=== PATIENT | female | born 1950 | race Caucasian/White ===

== ENCOUNTER 2016-03-01 15:35 | Emergency (ER) ==
--- NOTE | 2016-03-01 20:07 | PROVIDER DOCUMENTATION ---
HPI-Respiratory General - General Source: patient - History of Present Illness-Resp Quality of Pain: reports: aching Severity in ED: reports: mild Onset/Duration: reports: 4 days ago Timing: reports: still present Exposure: reports: unknown cause Cough Quality/Degree: reports: moderate Episode Frequency: no prior episodes Current Respiratory Medication Therapy: Initiated see nurses note Modifying Factors: worse with: coughing, other (palpation) Associated Symptoms: reports: cough, other (rib pain) Similar Symptoms Previously?: No Recently seen or treated by another doctor?: No <Shae Thomas - Last Filed: 03/01/16 20:07> <Derek Curran - Last Filed: 03/01/16 22:09> - General Chief Complaint: Wheezing Stated Complaint: PNEUMONIA Time Seen by Provider: 03/01/16 19:54 Allergies/Adverse Reactions: Patient Allergies Allergy/AdvReac Type Severity Reaction Status Date / Time Penicillins Allergy Severe SWELLING Verified 03/01/16 20:19 oxycodone HCl * Allergy Mild Unknown Verified 03/01/16 20:19 [From Percocet] propoxyphene napsylate * Allergy Mild Unknown Verified 03/01/16 20:19 [From Darvocet-N 100] Home Medications: Lorazepam [Ativan] 1 mg PO Q6H PRN PRN 01/11/12 Sertraline HCl [Zoloft] 100 mg PO QAM 01/11/12 Multivitamins/Minerals [Centrum Silver] 1 each PO QAM 09/03/12 Solifenacin Succinate [Vesicare] 10 mg PO QAM 09/03/12 Hydrochlorothiazide 25 mg PO QAM 11/09/12 Calcium Carbonate/Vitamin D3 [Calcium 600-Vit D3 400 Tablet] 1 tab PO QHS Mometasone/Formoterol INH [Dulera 100 Mcg/5 Mcg Inhaler] 2 puff INH RTBID Levothyroxine [Synthroid] 75 mcg PO QAM 09/15/14 Tiotropium [place] Inhaler [Spiriva] 1 puff INH RTDAILY 09/15/14 Clopidogrel [Plavix] 75 mg PO QAM 10/05/14 ATORVAstatin [Lipitor] 80 mg PO QHS 03/01/16 Dipyridamole/Aspirin S.a. [Aggrenox] 1 each PO QAM 03/01/16 Furosemide 20 mg PO BID 03/01/16 Potassium Chloride 20 meq PO BID 03/01/16 Potassium Citrate E.r. [Urocit-K] 5 meq PO BID 03/01/16 - History of Present Illness-Resp Nature of Presenting Problem: 65 year old F presents to the ED with a cc of left lower rib pain. PT states that she had a CT on Monday for this but has not received her results back. Pt has a hx of lung cancer. PT states that she has been battling pneumonia for "months" now and she states that she just finished a round of Doxycycline that her PCP placed her on. (Shae Thomas) Review of Systems - Adult - REVIEW OF SYSTEMS - ADULT Constitutional: denies: chills, fever Eyes: reports: no symptoms reported Ears, Nose, Mouth & Throat: denies: ear pain, throat pain Cardiovascular: reports: chest pain (rib pain). denies: palpitations Respiratory: reports: cough. denies: shortness of breath Gastrointestinal: denies: abdominal pain, nausea, vomiting Genitourinary: reports: no symptoms reported Musculoskeletal: reports: no symptoms reported Integumentary: reports: no symptoms reported Neurological: reports: no symptoms reported Psychiatric: reports: no symptoms reported Endocrine: reports: no symptoms reported Hematologic/Lymphatic: reports: no symptoms reported Allergic/Immunologic: reports: no symptoms reported All Other Systems: Reviewed and Negative <Shae Thomas - Last Filed: 03/01/16 20:07> Past History - Adult - PAST MEDICAL HISTORY-ADULT Review of Records: reports: Nursing Assessment Review, Medications Reviewed 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) Cardiovascular: reports: HTN, hyperlipidemia Respiratory: reports: cancer (lung), pneumonia Gastrointestinal: reports: GERD Neurological: reports: CVA, TIA Psychiatric: reports: anxiety - PRIOR SURGERIES/PROCEDURES Surgical/Procedure History: reports: tonsillectomy - PRIOR HOSPITALIZATIONS Prior Hospitalizations: reports: none - IMMUNIZATION STATUS Childhood Immunizations: See Nurse Assessment Flu Vaccine: See Nurse Assessment - FAMILY HISTORY Family History: reviewed, not pertinent - SOCIAL HISTORY Smoking: quit greater than 1 year Substance Use: none/never Alcohol Use Frequency: occasionally <Shae Thomas - Last Filed: 03/01/16 20:07> Physical Exam-General - PHYSICAL EXAM-ADULT Initial Vital Signs Reviewed: Yes - CONSTITUTIONAL General Appearance: appears well, alert, no apparent distress - HEAD, EARS, NOSE, MOUTH & THROAT HENMT: normocephalic/atraumatic, moist mucous membranes, normal ENT inspection - RESPIRATORY Respiratory: chest non-tender, normal breath sounds, rhonchi (moderate bilaterally), wheezing (moderate bilaterally) - CARDIOVASCULAR Cardiovascular: normal peripheral pulses, regular rate, rhythm, no edema - GASTROINTESTINAL (ABDOMEN) Abdominal Exam: non tender, soft - SKIN Integumentary: normal color, normal turgor, warm/dry - PSYCHIATRIC Psych/Mental Status: normal mood/affect, normal thought content, normal thought process, oriented x 3 <Shae Thomas - Last Filed: 03/01/16 20:07> Progress <Shae Thomas - Last Filed: 03/01/16 20:07> - XRAY 1 XRAY Study: Chest XRAY Interpretation: LARISA Katz) <Derek Curran - Last Filed: 03/01/16 22:09> - PLAN OF CARE/RESULTS Progress/Plan/Lab Results: Discussed patient with Dr. Gonzalez and he agrees with plan. Discussed results and plan of care with patient. Patient agrees with plan and verbalizes understanding. Vital Signs Temp Pulse Resp BP Pulse Ox 03/01/16 21:24 98.1 F 86 20 138/73 94 L 03/01/16 20:36 88 18 03/01/16 16:26 98.6 F 87 20 144/69 98 Penicillins Allergy (Severe, Verified 03/01/16 20:19) SWELLING oxycodone HCl * [From Percocet] Allergy (Mild, Verified 03/01/16 20:19) Unknown makes pt cry propoxyphene napsylate * [From Darvocet-N 100] Allergy (Mild, Verified 03/01/16 20:19) Unknown makes pt crying Lorazepam [Ativan] 1 mg PO Q6H PRN PRN 01/11/12 Sertraline HCl [Zoloft] 100 mg PO QAM 01/11/12 Multivitamins/Minerals [Centrum Silver] 1 each PO QAM 09/03/12 Solifenacin Succinate [Vesicare] 10 mg PO QAM 09/03/12 Hydrochlorothiazide 25 mg PO QAM 11/09/12 Calcium Carbonate/Vitamin D3 [Calcium 600-Vit D3 400 Tablet] 1 tab PO QHS Mometasone/Formoterol INH [Dulera 100 Mcg/5 Mcg Inhaler] 2 puff INH RTBID Levothyroxine [Synthroid] 75 mcg PO QAM 09/15/14 Tiotropium [place] Inhaler [Spiriva] 1 puff INH RTDAILY 09/15/14 Benzonatate [Tessalon] 100 - 200 mg PO TID PRN PRN #30 capsule 09/18/14 Meclizine [Antivert] 25 mg PO Q8H PRN PRN #0 tablet 09/18/14 Clopidogrel [Plavix] 75 mg PO QAM 10/05/14 Doxycycline [Vibramycin] 100 mg PO BID #20 tablet 10/30/14 Hydrocodone/Acetaminophen [[place] 7.5-325 Tablet] 1 each PO Q4-6H PRN PRN #20 tablet 01/12/16 Ondansetron [Zofran Odt] 8 mg PO Q8H PRN #20 tab.rapdis 01/12/16 ATORVAstatin [Lipitor] 80 mg PO QHS 03/01/16 Dipyridamole/Aspirin S.a. [Aggrenox] 1 each PO QAM 03/01/16 Furosemide 20 mg PO BID 03/01/16 Potassium Chloride 20 meq PO BID 03/01/16 Potassium Citrate E.r. [Urocit-K] 5 meq PO BID 03/01/16 Laboratory 03/01/16 03/01/16 20:38 20:38 WBC 17.09 H RBC 4.13 L Hgb 12.0 Hct 36.2 L MCV 87.7 MCH 29.1 MCHC 33.1 RDW Std Deviation 17.0 H Plt Count 280 MPV 10.3 Immature Gran % (Auto) 0.5 Neut % (Auto) 81.8 H Lymph % (Auto) 11.0 L Pershing % (Auto) 5.7 Eos % (Auto) 0.8 Baso % (Auto) 0.2 Immature Gran # (Auto) 0.09 H Neut # (Auto) 13.97 H Lymph # (Auto) 1.88 Pershing # (Auto) 0.98 H Eos # (Auto) 0.14 Baso # (Auto) 0.03 Sodium 138 Potassium 3.8 Chloride 96 L Carbon Dioxide 25 Anion Gap 17 BUN 14 Creatinine 1.0 H Estimated GFR/1.73 m2 55 BUN/Creatinine Ratio 14 Glucose 99 Calculated Osmolality 276 Calcium 10.0 Total Bilirubin 0.38 AST 25 ALT 21 Alkaline Phosphatase 85 Total Protein 7.4 Albumin 3.9 Globulin 3.5 Albumin/Globulin Ratio 1.1 Orders Category Date Time Status Saline Loc NOW Care 03/01/16 20:08 Completed CHEST-2 VIEWS [RAD] Stat Exams 03/01/16 16:39 Taken CBC WITH ELECTRONIC DIFF [HEME] Stat Lab 03/01/16 20:38 Completed COMPREHENSIVE METABOLIC PANEL [CHEM] Stat Lab 03/01/16 20:38 Completed Albuterol 2.5MG/Ipratrop 0.5MG [Duoneb (A & A)] Med 03/01/16 20:08 Discontinued 6 ml INH NOW ONE Methylprednisolone Sod Succ [Solu-Medrol] Med 03/01/16 20:08 Discontinued 125 mg IV NOW ONE Aerosol Treatments Routine Oth 03/01/16 20:08 Completed Aerosol Treatments Stat Oth 03/01/16 20:08 Completed Laboratory Tests 03/01/16 03/01/16 20:38 20:38 WBC 17.09 H RBC 4.13 L Hgb 12.0 Hct 36.2 L MCV 87.7 MCH 29.1 MCHC 33.1 RDW Std Deviation 17.0 H Plt Count 280 MPV 10.3 Immature Gran % (Auto) 0.5 Neut % (Auto) 81.8 H Lymph % (Auto) 11.0 L Pershing % (Auto) 5.7 Eos % (Auto) 0.8 Baso % (Auto) 0.2 Immature Gran # (Auto) 0.09 H Neut # (Auto) 13.97 H Lymph # (Auto) 1.88 Pershing # (Auto) 0.98 H Eos # (Auto) 0.14 Baso # (Auto) 0.03 Sodium 138 Potassium 3.8 Chloride 96 L Carbon Dioxide 25 Anion Gap 17 BUN 14 Creatinine 1.0 H Estimated GFR/1.73 m2 55 BUN/Creatinine Ratio 14 Glucose 99 Calculated Osmolality 276 Calcium 10.0 Total Bilirubin 0.38 AST 25 ALT 21 Alkaline Phosphatase 85 Total Protein 7.4 Albumin 3.9 Globulin 3.5 Albumin/Globulin Ratio 1.1 (Derek Curran) Departure <Shae Thomas - Last Filed: 03/01/16 20:07> - Departure Time of Disposition Order: 21:59 Certified Medical Emergency: Emergent <Derek Curran - Last Filed: 03/01/16 22:09> - Departure DIAGNOSIS: Bronchitis COPD (chronic obstructive pulmonary disease) Qualifiers: COPD type: chronic bronchitis Chronic bronchitis type: unspecified Qualified Code(s): J42 - Unspecified chronic bronchitis Disposition: HOME 01 Condition: Stable Additional Instructions: Follow up with primary care physician Take medications as directed Return to ED for any concerns or worsening of symptoms ED Follow Up Instructions: You have been treated by a care provider in the Emergency Department. These instructions are being provided to you so you can have an understanding of how to care for yourself upon discharge. Upon discharge from the Emergency Department, you are responsible for making arrangements for follow-up care by a physician of your choice. Take all prescribed medications as directed. Return to the Emergency Department immediately for any new or worsening symptoms. You may call the Physician Referral phone number at [phone] to obtain a list of Physicians who are taking new patients. Prescriptions: Phenylephrine HCl/Cod/Prometh [Phenergan Vc-Codeine Syrup] 2 tsp PO Q6H PRN PRN #120 syrup PRN Reason: Cough Attestation - Scribe Verification/Attestation Scribe:: Shae Thomas Acting as Scribe for:: Derek Curran Scribe documention review:: This chart was documented by a scribe and accurately reflects the service the provider performed and the decisions made by the provider. <Shae Thomas - Last Filed: 03/01/16 20:07> - Physician/ Mid-level Attestation Patient care was provided by Mid-level provider (CULINARY CHEF/PA):: Yes Mid-level provider:: Derek Curran Mid-level documentation review:: The Mid-level provider documentation, treatment plan and medical decision making was reviewed by the physician who agrees with all treatment and medical decision making by the [facility]. <Derek Curran - Last Filed: 03/01/16 22:09> Physician Attestation - Physician Attestation I, the provider, attest to the following statement:: Derek Curran Physician documentation Attestation:: This documentation recorded by the scribe accurately reflects the service I personally performed and the decisions made by me. <Shae Thomas - Last Filed: 03/01/16 20:07>
[2016-03-01] MEDS ORDERED: DUONEB (A & A) INH ONE (20:08)
[2016-03-01] MEDS ORDERED: SOLU-MEDROL IV ONE (20:08)
[2016-03-01 20:48] LABS: MANUAL DIFF NEEDED? NO
[2016-03-01 20:58] LABS: BASO% 0.2 % (0.0-0.8); EOS# 0.14 X1000 (0.0-0.7); EOS% 0.8 % (0.0-10.0); HEMATOCRIT 36.2 % (37.0-47.0); IMM GRAN# 0.09 X1000 (0.0-0.04); IMM GRAN% 0.5 % (0.0-0.5); LYMPH# 1.88 X1000 (1.2-3.4); MCH 29.1 PG (27-31); MCHC 33.1 g/dL (33-37); MCV 87.7 FL (81-99); MONO# 0.98 X1000 (0.11-0.59); MONO% 5.7 % (1.7-9.3); MPV 10.3 FL (7.4-10.4); NEUT% 81.8 % (42.2-75.2); PLT 280 X1000 (130-400); RBC 4.13 XMIL (4.2-5.4)
[2016-03-01 21:24] LABS: ALBUMIN 3.9 g/dL (3.5-5.0); POTASSIUM 3.8 mmol/L (3.5-5.1); TOTAL BILIRUBIN 0.38 mg/dL (0.20-1.00); TOTAL PROTEIN 7.4 g/dL (6.3-8.3)
[2016-03-01 21:25] VITALS: BP 138/73
--- NOTE | 2016-03-02 08:08 | Diag Imaging Result Document ---
PROCEDURE NAME: CHEST-2 VIEWS - 03/01/2016 TWO VIEWS OF THE CHEST: FINDINGS: There is volume loss on the left. This was also present on 01/12/2016. There has been some clearing of the right upper lobe compared to previous study. Otherwise, there has been no significant change. IMPRESSION: Fibrosis and volume loss on the left. No definite evidence of acute disease.
== END 2016-03-01 22:19 | disposition home or self-care (01) ==
LOC: ED 15:35
DX: J42 Unspecified chronic bronchitis (principal); R07.81 Pleurodynia; I10 Essential (primary) hypertension; E78.5 Hyperlipidemia, unspecified; G51.0 Bell's palsy; Z85.118 Personal history of other malignant neoplasm of bronchus and lung; Z79.899 Other long term (current) drug therapy; Z86.73 Personal history of transient ischemic attack (TIA), and cerebral infarction without residual deficits; R06.2 Wheezing; F41.9 Anxiety disorder, unspecified; Z87.891 Personal history of nicotine dependence; Z79.51 Long term (current) use of inhaled steroids; Z79.02 Long term (current) use of antithrombotics/antiplatelets
CPT/HCPCS: 71020; 80053; 85025; 94640; 96374; J2930

== ENCOUNTER 2016-07-16 18:09 | Inpatient (IN) ==
[2016-07-16] MEDS ORDERED: DUONEB (A & A) INH ONE (19:17)
[2016-07-16 19:54] LABS: MANUAL DIFF NEEDED? NO
[2016-07-16 19:55] LABS: URINE CULTURE NEEDED? NO; URINE MICRO REVIEW NEEDED? NO; URINE SOURCE CLEAN CATCH
[2016-07-16 19:59] LABS: BASO% 0.2 % (0.0-0.8); BILIRUBIN URINE NEGATIVE (NEGATIVE); BLOOD URINE NEGATIVE (NEGATIVE); COLOR YELLOW; EOS# 0.19 X1000 (0.0-0.7); EOS% 1.1 % (0.0-10.0); GLUCOSE URINE NEGATIVE (NEGATIVE); HEMATOCRIT 39.5 % (37.0-47.0); HEMOGLOBIN 13.1 g/dL (12.0-16.0); IMM GRAN# 0.11 X1000 (0.0-0.04); IMM GRAN% 0.7 % (0.0-0.5); LEUKOCYTES URINE NEGATIVE (NEGATIVE); LYMPH# 1.37 X1000 (1.2-3.4); LYMPH% 8.3 % (20.5-51.1); MCH 30.8 PG (27-31); MCHC 33.2 g/dL (33-37); MCV 92.7 FL (81-99); MONO# 1.24 X1000 (0.11-0.59); MONO% 7.5 % (1.7-9.3); MPV 9.5 FL (7.4-10.4); NEUT% 82.2 % (42.2-75.2); NITRITE URINE NEGATIVE (NEGATIVE); PH URINE 6.5; PLT 262 X1000 (130-400); PROTEIN URINE TRACE mg/dL (NEGATIVE); RBC 4.26 XMIL (4.2-5.4); SP GRAVITY URINE 1.023; TURBIDITY URINE CLEAR (CLEAR); UROBILINOGEN URINE NORMAL (NORMAL)
[2016-07-16 20:01] LABS: UR EPITHELIAL CELLS <10 /HPF (<10); URINE BACTERIA NEGATIVE /HPF; URINE RBC <10 /HPF (<10); URINE WBC <10 /HPF (<10)
[2016-07-16 20:08] LABS: INR 0.97; PROTIME 10.2 Seconds (9.2-11.7); PTT 23.5 Seconds (22.0-36.0)
[2016-07-16 20:15] LABS: UR AMPHETAMINES QUAL NONE DETECTED (NONE DETECT); UR BARBITUATES QUAL NONE DETECTED (NONE DETECT); UR BENZODIAZEPIN QUAL NONE DETECTED (NONE DETECT); UR CANNABINOIDS QUAL NONE DETECTED (NONE DETECT); UR COCAINE QUAL NONE DETECTED (NONE DETECT); UR METHADONE QUAL NONE DETECTED (NONE DETECT); UR OPIATES QUAL NONE DETECTED (NONE DETECT); UR OXYCODONE QUAL NONE DETECTED (NONE DETECT); UR PCP QUAL NONE DETECTED (NONE DETECT)
[2016-07-16 20:20] LABS: ALBUMIN 3.8 g/dL (3.5-5.0); MAGNESIUM 2.2 mg/dL (1.5-2.7); POTASSIUM 3.9 mmol/L (3.5-5.1); TOTAL BILIRUBIN 0.33 mg/dL (0.20-1.00); TOTAL PROTEIN 7.1 g/dL (6.3-8.3)
--- NOTE | 2016-07-16 21:13 | ED EKG INTERP ---
This chart was entered by Forest Bhandari Scribe, acting as scribe for Edgar Ge MD. EKG Interpretation - EKG Time of EKG reading by physician:: 19:37 EKG Read and Signed by:: Edgar Ge EKG Interpretation (*Must complete 3 of following elements*): Abnormal ( Possible left atrial enlargement; L axis deviation; LVH with reploarization abnormality; Anterior infarct, age undetermined) Rate: 81 Rhythm: NSR This chart was documented by the indicated scribe, (Forest Bhandari Scribe) and accurately reflects the services I performed and decisions made by me, Edgar Ge MD, as attested by the provider's signature.
--- NOTE | 2016-07-16 21:43 | PROVIDER DOCUMENTATION ---
HPI-General Adult - General Chief Complaint: Shortness of Breath Stated Complaint: COPD Exacerbation Time Seen by Provider: 07/16/16 18:36 Source: patient, family Allergies/Adverse Reactions: Patient Allergies Allergy/AdvReac Type Severity Reaction Status Date / Time Penicillins Allergy Severe SWELLING Verified 03/01/16 20:19 oxycodone HCl * Allergy Mild Unknown Verified 03/01/16 20:19 [From Percocet] propoxyphene napsylate * Allergy Mild Unknown Verified 03/01/16 20:19 [From Darvocet-N 100] Home Medications: Home Medication List Medication Instructions Recorded Confirmed Last Taken Type Lorazepam [Ativan] 1 mg PO Q8H PRN PRN 01/11/12 07/17/16 07/16/16 History Sertraline HCl [Zoloft] 100 mg PO QAM 01/11/12 07/17/16 07/15/16 History Multivitamins/Minerals [Centrum 1 each PO QAM 09/03/12 07/17/16 07/16/16 History Silver] Hydrochlorothiazide 25 mg PO QAM 11/09/12 07/17/16 07/16/16 History Calcium Carbonate/Vitamin D3 1 tab PO QHS 10/19/13 07/17/16 07/15/16 History [Calcium 600-Vit D3 400 Tablet] Mometasone/Formoterol INH [Dulera 2 puff INH RTBID 10/19/13 07/17/16 07/16/16 History 100 Mcg/5 Mcg Inhaler] Levothyroxine [Synthroid] 100 mcg PO QAM 09/15/14 07/17/16 07/16/16 History Tiotropium [place] Inhaler 1 puff INH RTDAILY 09/15/14 07/17/16 07/16/16 History [Spiriva] Benzonatate [Tessalon] 100 - 200 mg PO TID PRN PRN #30 09/18/14 07/17/16 Rx capsule Clopidogrel [Plavix] 75 mg PO QAM 10/05/14 07/17/16 07/16/16 History ATORVAstatin [Lipitor] 80 mg PO QHS 03/01/16 07/17/16 07/15/16 History Dipyridamole/Aspirin S.a. 1 each PO QAM 03/01/16 07/17/16 07/16/16 History [Aggrenox] Furosemide 20 mg PO 2-4XDAY PRN PRN 03/01/16 07/17/16 03/01/16 11:30 History Potassium Chloride 20 meq PO 2-4XDAY PRN PRN 03/01/16 07/17/16 03/01/16 11:30 History Acetaminophen [Tylenol] 500 mg PO Q6H PRN PRN 07/17/16 07/17/16 Unknown History Albuterol Sulfate [Proair Hfa] 8.5 gm IH Q4H PRN 07/17/16 07/17/16 Unknown History Diphenhydramine [Benadryl] 25 mg PO QHS 07/17/16 07/17/16 07/15/16 History Meclizine [Antivert] 25 mg PO Q6H PRN PRN 07/17/16 07/17/16 07/16/16 History Omeprazole 20 mg PO QHS 07/17/16 07/17/16 07/15/16 History Tizanidine HCl [Zanaflex] 4 mg PO Q8H PRN 07/17/16 07/17/16 07/15/16 History Trospium Chloride 20 mg PO BID 07/17/16 07/17/16 07/16/16 History Doxycycline 100 mg PO BID #10 tablet 07/18/16 Unknown Rx Guaifenesin E.r. [Mucinex] 600 mg PO BID #60 tablet 07/18/16 Unknown Rx - History of Present Illness -Gen Adult Nature of Presenting Problems: Pt is a 65 y/o F c chief complaint of episode of weakness, sob, and near syncope while at home today. Pt states that she was laying on the floor c her dog and was unable to get off the ground due to weakness in her R knee. Pt states that she struggled for a few minutes then became acutely short of breath and felt very weak. She laid on the ground and became unresponsive. Per pt's , he was not able to get her to respond for several minutes and he contacted EMS. Pt has a h/o significant of R knee injury, COPD, CVA, small cell carcinoma in remission. On arrival, pt is alert, oriented, and has active wheezing but states her wheezing is similar to her baseline. Review of Systems - Adult - REVIEW OF SYSTEMS - ADULT Constitutional: reports: see HPI, fatique. denies: chills Eyes: reports: no symptoms reported. denies: blurred vision, double vision Ears, Nose, Mouth & Throat: reports: no symptoms reported. denies: ear pain, nose pain, throat pain Cardiovascular: reports: see HPI, syncope. denies: chest pain, orthopnea Respiratory: reports: see HPI, cough, shortness of breath, wheezing Gastrointestinal: reports: no symptoms reported. denies: abdominal pain, nausea , vomiting Genitourinary: reports: no symptoms reported. denies: dysuria, hematuria Musculoskeletal: reports: see HPI, bone pain, joint pain. denies: joint swelling Integumentary: reports: no symptoms reported. denies: itching, rash Neurological: reports: no symptoms reported. denies: numbness, paresthesia Psychiatric: reports: no symptoms reported. denies: anxiety, emotional problems Endocrine: reports: no symptoms reported. denies: cold intolerance, heat intolerance Hematologic/Lymphatic: reports: no symptoms reported. denies: blood clots, low blood count Allergic/Immunologic: reports: no symptoms reported. denies: allergic reactions , eczema All Other Systems: Reviewed and Negative Past History - Adult - PAST MEDICAL HISTORY-ADULT Review of Records: reports: Old Records Reviewed, Nursing Assessment Review, Medications Reviewed, Social history reviewed & non-contributory. 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) Cardiovascular: reports: HTN, hyperlipidemia Respiratory: reports: cancer (lung), pneumonia Gastrointestinal: reports: GERD Obstetrical/Gynecological: reports: denies history Genitourinary: reports: denies history Musculoskeletal: reports: denies history Neurological: reports: CVA, TIA Psychiatric: reports: anxiety Endocrine/Immune: reports: denies history Other Conditions: reports: denies history - PRIOR SURGERIES/PROCEDURES Surgical/Procedure History: reports: tonsillectomy - PRIOR HOSPITALIZATIONS Prior Hospitalizations: reports: none - IMMUNIZATION STATUS Childhood Immunizations: See Nurse Assessment Flu Vaccine: See Nurse Assessment - FAMILY HISTORY Family History: reviewed, not pertinent Physical Exam-General - PHYSICAL EXAM-ADULT Initial Vital Signs Reviewed: Yes - CONSTITUTIONAL General Appearance: appears well, mild distress, obese - EYES Eyes: PERRL/EOMI, pink conjunctivae - HEAD, EARS, NOSE, MOUTH & THROAT HENMT: normocephalic/atraumatic, moist mucous membranes, normal ENT inspection - NECK Neck: normal inspection - RESPIRATORY Respiratory: chest non-tender, wheezing - CARDIOVASCULAR Cardiovascular: normal peripheral pulses, regular rate, rhythm - GASTROINTESTINAL (ABDOMEN) Abdominal Exam: normal bowel sounds, non tender, soft - LYMPHATIC Lymphatic: no adenopathy - MUSCULOSKELETAL Back Exam: normal inspection, no CVA tenderness, no vertebral tenderness Extremity: normal range of motion, normal inspection, tenderness (R knee) - SKIN Integumentary: normal color, normal turgor, warm/dry - NEUROLOGIC Neurologic: grossly normal, no motor/sensory deficits - PSYCHIATRIC Psych/Mental Status: normal mood/affect, normal thought content, normal thought process, oriented x 3 Progress - PLAN OF CARE/RESULTS Progress/Plan/Lab Results: Vital Signs - 8 hr 07/16/16 18:15 07/16/16 20:12 Temperature 97.7 F Pulse Rate 80 77 Respiratory Rate 19 18 Blood Pressure 136/47 O2 Sat by Pulse Oximetry 97 Laboratory Results - last 24 hr 07/16/16 07/16/16 07/16/16 19:44 19:44 19:44 WBC 16.56 H RBC 4.26 Hgb 13.1 Hct 39.5 MCV 92.7 MCH 30.8 MCHC 33.2 RDW Std Deviation 14.9 H Plt Count 262 MPV 9.5 Immature Gran % (Auto) 0.7 H Neut % (Auto) 82.2 H Lymph % (Auto) 8.3 L [place] % (Auto) 7.5 Eos % (Auto) 1.1 Baso % (Auto) 0.2 Immature Gran # (Auto) 0.11 H Neut # (Auto) 13.62 H Lymph # (Auto) 1.37 [place] # (Auto) 1.24 H Eos # (Auto) 0.19 Baso # (Auto) 0.03 PT INR PTT (Actin FS) D-Dimer 0.46 Sodium 137 Potassium 3.9 Chloride 97 L Carbon Dioxide 22 L Anion Gap 18 BUN 24 H Creatinine 1.0 H Estimated GFR/1.73 m2 55 BUN/Creatinine Ratio 24 Glucose 99 Calculated Osmolality 278 Calcium 10.0 Magnesium 2.2 Total Bilirubin 0.33 AST 24 ALT 26 Alkaline Phosphatase 83 Creatine Kinase 88 Troponin T [id number] Pept Total Protein 7.1 Albumin 3.8 Globulin 3.3 Albumin/Globulin Ratio 1.2 Urine Source Urine Color Urine Turbidity Urine pH Ur Specific [place] Urine Protein Ur Glucose (Stick) Ur Ketones (Stick) Urine Blood Urine Nitrite Urine Bilirubin Urobilinogen Dipstick Urine Leukocytes Urine WBC (Auto) Urine RBC (Auto) U Epithel Cells (Auto) Urine Bacteria (Auto) Urine Opiates Screen Ur Oxycodone Screen Ur Methadone, Qual Ur Barbiturates Screen Ur Phencyclidine Scrn Ur Amphetamines Screen U Benzodiazepines Scrn Urine Cocaine Screen U Cannabinoids Screen 07/16/16 07/16/16 07/16/16 19:44 19:44 19:44 WBC RBC Hgb Hct MCV MCH MCHC RDW Std Deviation Plt Count MPV Immature Gran % (Auto) Neut % (Auto) Lymph % (Auto) [place] % (Auto) Eos % (Auto) Baso % (Auto) Immature Gran # (Auto) Neut # (Auto) Lymph # (Auto) [place] # (Auto) Eos # (Auto) Baso # (Auto) PT 10.2 INR 0.97 PTT (Actin FS) 23.5 D-Dimer Sodium Potassium Chloride Carbon Dioxide Anion Gap BUN Creatinine Estimated GFR/1.73 m2 BUN/Creatinine Ratio Glucose Calculated Osmolality Calcium Magnesium Total Bilirubin AST ALT Alkaline Phosphatase Creatine Kinase Troponin T < 0.010 [id number] Pept 1057 H Total Protein Albumin Globulin Albumin/Globulin Ratio Urine Source Urine Color Urine Turbidity Urine pH Ur Specific [place] Urine Protein Ur Glucose (Stick) Ur Ketones (Stick) Urine Blood Urine Nitrite Urine Bilirubin Urobilinogen Dipstick Urine Leukocytes Urine WBC (Auto) Urine RBC (Auto) U Epithel Cells (Auto) Urine Bacteria (Auto) Urine Opiates Screen Ur Oxycodone Screen Ur Methadone, Qual Ur Barbiturates Screen Ur Phencyclidine Scrn Ur Amphetamines Screen U Benzodiazepines Scrn Urine Cocaine Screen U Cannabinoids Screen 07/16/16 07/16/16 19:44 19:44 WBC RBC Hgb Hct MCV MCH MCHC RDW Std Deviation Plt Count MPV Immature Gran % (Auto) Neut % (Auto) Lymph % (Auto) [place] % (Auto) Eos % (Auto) Baso % (Auto) Immature Gran # (Auto) Neut # (Auto) Lymph # (Auto) [place] # (Auto) Eos # (Auto) Baso # (Auto) PT INR PTT (Actin FS) D-Dimer Sodium Potassium Chloride Carbon Dioxide Anion Gap BUN Creatinine Estimated GFR/1.73 m2 BUN/Creatinine Ratio Glucose Calculated Osmolality Calcium Magnesium Total Bilirubin AST ALT Alkaline Phosphatase Creatine Kinase Troponin T Rkc-T-Bwtftkehtpp Pept Total Protein Albumin Globulin Albumin/Globulin Ratio Urine Source CLEAN CATCH Urine Color YELLOW Urine Turbidity CLEAR Urine pH 6.5 Ur Specific [place] 1.023 Urine Protein TRACE A Ur Glucose (Stick) NEGATIVE Ur Ketones (Stick) NEGATIVE Urine Blood NEGATIVE Urine Nitrite NEGATIVE Urine Bilirubin NEGATIVE Urobilinogen Dipstick NORMAL Urine Leukocytes NEGATIVE Urine WBC (Auto) <10 Urine RBC (Auto) <10 U Epithel Cells (Auto) <10 Urine Bacteria (Auto) NEGATIVE Urine Opiates Screen NONE DETECTED Ur Oxycodone Screen NONE DETECTED Ur Methadone, Qual NONE DETECTED Ur Barbiturates Screen NONE DETECTED Ur Phencyclidine Scrn NONE DETECTED Ur Amphetamines Screen NONE DETECTED U Benzodiazepines Scrn NONE DETECTED Urine Cocaine Screen NONE DETECTED U Cannabinoids Screen NONE DETECTED Orders Category Date Time Status Cardiac Monitoring DIRECTED Care 07/16/16 18:36 Active Oxygen Therapy- ED Nursing DIRECTED Care 07/16/16 18:36 Active Saline Loc NOW Care 07/16/16 18:36 Active Regular Diet Diet 07/16/16 19:17 Active ANGIOGRAM/PULMONARY ARTERIES [CT] Stat Exams 07/16/16 19:15 Taken CHEST-2 VIEWS [RAD] Stat Exams 07/16/16 18:36 Taken HEAD W/O CONTRAST [CT] Stat Exams 07/16/16 19:15 Taken KNEE 3 VIEWS RIGHT [RAD] Stat Exams 07/16/16 19:16 Taken CBC WITH ELECTRONIC DIFF [HEME] Stat Lab 07/16/16 19:44 Completed CK PROFILE [SP CHEM] Stat Lab 07/16/16 19:44 Completed COMPREHENSIVE METABOLIC PANEL [CHEM] Stat Lab 07/16/16 19:44 Completed D-DIMER [CHEM] Stat Lab 07/16/16 19:44 Completed MAGNESIUM [CHEM] Stat Lab 07/16/16 19:44 Completed PRO B-NATRIURETIC PEPTIDE Stat Lab 07/16/16 19:44 Completed PROTIME WITH INR [COAG] Stat Lab 07/16/16 19:44 Completed PTT [COAG] Stat Lab 07/16/16 19:44 Completed TROPONIN T Stat Lab 07/16/16 19:44 Completed UA Reflex [URINALYSIS W/POSS RFLX CULT] [URINALYSIS] Lab 07/16/16 19:44 Completed Stat UDS [URINE DRUG SCREEN] Stat Lab 07/16/16 19:44 Completed Albuterol 2.5MG/Ipratrop 0.5MG [Duoneb (A & A)] Med 07/16/16 19:17 Discontinued 6 ml INH NOW ONE Aerosol Treatments Routine Oth 07/16/16 19:17 Completed Aerosol Treatments Stat Oth 07/16/16 19:17 Completed EKG [EKG] Stat Ther 07/16/16 18:36 Ordered Result Diagrams: 07/18/16 06:23 07/18/16 06:23 - XRAY 1 XRAY: Right XRAY Study: Knee Impression: Normal (no acute dz, no fx, no dislocation) - CT/MRI 1 CT Study: Head Impression: Normal (nad) 2 CT Study: Angiogram Impression: Abnormal (improvement in nonspecific patchy interstitial infiltrates in R lung; stable scarring in L lung; no PE, NAD - prelim radiology report) - CONSULTS/PCP/HOSPITALIST Notification #1 *Consult/PCP/Hospitalist*: Dr. Moahmud (Hospitalist) Time Discussed: 22:38 Reason/Comments: Will accept. Departure - Departure Time of Disposition Decision: 22:38 DIAGNOSIS: COPD exacerbation Altered mental status, unspecified Qualifiers: Altered mental status type: unspecified Qualified Code(s): R41.82 - Altered mental status, unspecified TIA (transient ischemic attack) Qualifiers: Transient cerebral ischemia type: unspecified Qualified Code(s): G45.9 - Transient cerebral ischemic attack, unspecified Disposition: ADMITTED INPATIENT 09 Certified Medical Emergency: Emergent Condition: Stable - Critical Care Note This patient required my direct & personal management of CC.: No Attestation - Physician/ YUMIKO Attestation Patient care was provided by Advanced Practice Provider:: Yes Advanced Practice Provider:: Nilesh Quesada Advanced Practice Provider documentation review:: The Mid-level provider documentation, treatment plan and medical decision making was reviewed by the physician who agrees with all treatment and medical decision making by the MLP.
[2016-07-16] MEDS ORDERED: LEVAQUIN 750 MG/D5W 750 MG/150 ML IVPB IV ONE (22:35)
--- NOTE | 2016-07-17 00:44 | HISTORY AND PHYSICAL ---
PRIMARY CARE PHYSICIAN: Dr. Nicole Quintero. CHIEF COMPLAINT: The patient and had some slurred speech and coughing. HISTORY OF PRESENTING ILLNESS: A 65-year-old, obese female, with a history of CVA, COPD, hypertension and small-cell lung cancer, had presented to the emergency department with complaint that she had some slurred speech and some mild confusion earlier in the day. Apparently, she was on the floor grooming her dog, and then she was unable to stand. She admits to having some pain with her shoulder and right knee, and did not know the reason why she could not stand. However, her states that she was having some slurred speech and confused, and subsequently he called the ambulance. The patient was brought to the emergency department and evaluated, and due to her presenting symptoms, and a history of a previous CVA, it was thought that she would need hospitalization for further management. During her initial presentation, she was coughing, and also having a lot of expiratory wheezes and symptoms consistent with COPD exacerbation, and she will be treated during her stay in the hospital. At the time of my examination, she had denied any headache, fever, chills, chest pain, hemoptysis, or weight changes, but complained of some shortness of breath and coughing. PAST MEDICAL HISTORY: CVA, COPD, hypertension, sleep apnea, small cell lung cancer, treated with radiation and chemo. PAST SURGICAL HISTORY: Adenoidectomy and tonsillectomy and lung biopsy. ALLERGIES: Penicillin, oxycodone, propoxyphene. CURRENT MEDICATIONS: As listed in the MAR. SOCIAL HISTORY: She is a former smoker. History of alcohol abuse in the past. Denies any illicit drug use. FAMILY HISTORY: Positive for coronary disease in her father. REVIEW OF SYSTEMS: [employer] point systems is as in HPI. Other systems negative. PHYSICAL EXAMINATION: GENERAL: Cooperative, friendly female, she is resting comfortably now. VITAL SIGNS: Temperature 97.7, pulse 80, respirations 19, blood pressure 136/ 47. HEENT: Atraumatic, normocephalic. Extraocular movements intact. PERRLA. NECK: Supple. CHEST: Bibasilar rales. CARDIOVASCULAR: Regular rate and rhythm. ABDOMEN: Soft, obese, positive bowel sounds. EXTREMITIES: Trace edema. NEUROLOGIC: She is awake, alert, oriented x3 now. : No bladder distention. SKIN: Warm. LABORATORIES AND STUDIES: WBC 16.56, hemoglobin 13.1, hematocrit 39.5, platelets 262,000. Sodium 137, potassium 3.9, chloride 97, CO2 of 22, BUN is 24, creatinine 1.0, glucose is 99. ASSESSMENT: A 65-year-old, obese female, with a previous history of CVA, COPD, hypertension and small cell lung cancer, presents to our emergency department after she had an episode where she was unable to get up off the floor, where she was grooming her dog. She had episodes of some slurred speech, as per , and she did have some symptoms of coughing, consistent with mild COPD exacerbation. The patient will need hospitalization for further management. 1. Altered mental status, possible TIA. Will need to rule out CVA. 2. Mild COPD exacerbation. 3. History of lung cancer. 4. Hypertension. 5. Sleep apnea. PLAN: 1. We will admit patient to medical floor with telemetry. 2. We will continue with neuro checks. 3. We will consult Neurology. 4. We will continue with DuoNebs, and given cough suppressant, and start her on empiric antibiotics. 5. We will consult to her oncologist. 6. We will monitor blood pressure closely, resume antihypertensive agents. 7. We will put patient on DVT prophylaxis with SCDs. 8. We will continue to follow and reassess. cc: Igor Mohamud MD MTDD
[2016-07-17] MEDS: LEVAQUIN 750 MG/D5W 750 MG/150 ML IVPB IV SCH (01:11)
[2016-07-17] MEDS: ALBUTEROL NEB INH SCH ×3 (04:04→15:56)
--- NOTE | 2016-07-17 06:03 | Diag Imaging Result Doc PS360 ---
EXAM: CHEST-2 VIEWS HISTORY: sob TECHNIQUE: Two views COMPARISON: 03/01/2016 FINDINGS: The lungs are well expanded. The heart is not enlarged. The vessels are not distended. There are no infiltrates. No pleural effusions. IMPRESSION: No definite abnormality considering the technique and the patient's body habitus. Electronically signed by Dylon Fajardo 07/17/2016 6:00 AM
--- NOTE | 2016-07-17 06:06 | Diag Imaging Result Doc PS360 ---
EXAM: KNEE 3 VIEWS RIGHT HISTORY: R knee laxity TECHNIQUE: Three views COMPARISON: 03/09/2012 FINDINGS: No fracture. No dislocation. Tiny patellar bone spurs. No other abnormality. IMPRESSION: No acute bony injury. Minimal arthritic changes. Electronically signed by Dylon Fajardo 07/17/2016 6:03 AM
[2016-07-17 06:23] LABS: MANUAL DIFF NEEDED? NO
[2016-07-17 06:29] LABS: BASO% 0.1 % (0.0-0.8); EOS# 0.14 X1000 (0.0-0.7); HEMATOCRIT 34.1 % (37.0-47.0); HEMOGLOBIN 11.2 g/dL (12.0-16.0); IMM GRAN# 0.08 X1000 (0.0-0.04); IMM GRAN% 0.6 % (0.0-0.5); LYMPH# 1.26 X1000 (1.2-3.4); LYMPH% 9.1 % (20.5-51.1); MCH 30.7 PG (27-31); MCHC 32.8 g/dL (33-37); MCV 93.4 FL (81-99); MONO# 0.95 X1000 (0.11-0.59); MONO% 6.9 % (1.7-9.3); MPV 9.5 FL (7.4-10.4); NEUT% 82.3 % (42.2-75.2); PLT 227 X1000 (130-400); RBC 3.65 XMIL (4.2-5.4)
[2016-07-17 06:37] LABS: CALCIUM 9.4 mg/dL (8.8-10.2); POTASSIUM 3.9 mmol/L (3.5-5.1)
--- NOTE | 2016-07-17 08:19 | Diag Imaging Result Doc PS360 ---
EXAM: HEAD W/O CONTRAST HISTORY: syncopal episode, cva x 2 TECHNIQUE: Dose reduction protocol COMPARISON: 10/05/2014 FINDINGS: No parenchymal hemorrhage. No epidural or subdural hematoma. No subarachnoid hemorrhage. There are mild chronic microvascular ischemic changes. No mass identified on this noncontrasted exam. A small amount of mucus is found in the right maxillary sinus. IMPRESSION: 1.No hemorrhage 2.Chronic microvascular ischemic changes 3.Mild sinusitis 4.A preliminary report was given at 9:34 PM Electronically signed by Dylon Fajardo 07/17/2016 8:16 AM
--- NOTE | 2016-07-17 08:47 | Diag Imaging Result Doc PS360 ---
EXAM: ANGIOGRAM/PULMONARY ARTERIES HISTORY: syncopal episode, small cell carcinoma TECHNIQUE: Dose reduction protocol COMPARISON: 09/15/2014 FINDINGS: No pleural effusions. The heart is not enlarged. No thoracic aortic aneurysm or dissection. Normal opacification of the pulmonary arteries and their major branches. No enlarged mediastinal or hilar lymph nodes. There is scarring in the medial left lung similar to the prior exam. Interval improvement in the bilateral prior multifocal patchy infiltrates in the right lung. Several tiny areas remain which may simply be scarring, but could represent recurrent tiny infiltrates. IMPRESSION: 1.No pulmonary emboli 2.Stable scarring in the left lung 3.Interval improvement in the prior multifocal patchy infiltrates 4.A preliminary report was given at 9:34 PM Electronically signed by Dylon Fajardo 07/17/2016 8:45 AM
[2016-07-17] MEDS: MUCINEX PO SCH ×2 (08:55→20:39)
[2016-07-17] MEDS ORDERED: ANTIVERT PO PRN (11:47)
[2016-07-17] MEDS ORDERED: ATIVAN PO PRN (11:47)
[2016-07-17] MEDS ORDERED: VENTOLIN HFA INH PRN (11:47)
[2016-07-17] MEDS: SOLU-MEDROL IV SCH ×3 (12:54→20:55)
[2016-07-17] MEDS: PLAVIX PO SCH (12:55)
--- NOTE | 2016-07-17 13:25 | PROGRESS NOTE ---
DATE: 07/17/2016 SUBJECTIVE: Today Ms. Alvarenga refers to be doing a lot better. She denies any more dizziness but she does have some shortness of breath and cough. OBJECTIVE: Vital signs: Blood pressure is 134/61, pulse 84, respirations 22, temperature 98.1 degrees. General: Ms. Alvarenga is a 65-year-old female. She is in bed. She did not seem to be in any distress. HEENT: Mucosa is pink and moist. Anicteric. Acyanotic. Neck: Supple. Chest: Air entry is bilaterally reduced. There is diffuse exploratory wheezing and rhonchi in both lungs, most in the left posterior lung field, and also bibasilar crepitations. Cardiovascular: Regular rate and rhythm. Abdomen: Soft, distended. Extremities: No pedal edema. 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 There is no focal neurological deficit. LABORATORY DATA: WBC is 13.80, hemoglobin is 12.2, platelet count of 227,000. Chemistry is reviewed. Sodium is 135, potassium is 3.9, chloride is 96, bicarb is 24, creatinine is 1.2. DIAGNOSTIC STUDIES: 1. A chest x-ray which was done yesterday showed no definite abnormality. 2. A CTA of the lungs showed stable scarring in the left lung, interval improvement in prior multifocal patchy infiltrates. 3. A CT scan showed no hemorrhage, chronic microvascular ischemic changes, and some sinusitis. ASSESSMENT: 1. Episode of slurred speech and altered mentation. Not quite sure if this was a transient ischemic attack or some form of medication-induced encephalopathy. Patient does have a significant history of multiple strokes before so I would not be surprised if this was an episode of a TIA. We will do an MRI tomorrow to see if there was any acute involvement. Patient will also be seeing Dr. Bruner. 2. Mild chronic obstructive pulmonary disease exacerbation. The patient is currently on Levo. According to her, she actually had multiple rounds of antibiotics for the last month and still has been having some wheezing and shortness of breath. She is currently on levofloxacin I will add also doxycycline IV for MRSA coverage and IV steroids. 3. History of lung small-cell cancer. 4. Hypertension. 5. Sleep apnea. 6. Morbid obesity with a body mass index of 46.4. 7. History of previous cerebrovascular accident. PLAN: So in general I think Ms. Alvarenga is relatively stable. We are going to restart her medications. Get Dr. Alcaraz, her bleach mixer, to see her for the COPD and also Dr. Bruner for the TIA. I think in about a day or 2 we might be able to discharge her. cc: Malvin Puckett MD
[2016-07-17] MEDS: DOXYCYCLINE 100 MG in NS 250 ML IV SCH (13:57)
[2016-07-17] MEDS: TYLENOL PO PRN (18:21)
[2016-07-17] MEDS ORDERED: LIPITOR PO SCH (21:00)
[2016-07-17] MEDS ORDERED: PRILOSEC PO SCH (21:00)
[2016-07-18] MEDS: LEVAQUIN 750 MG/D5W 750 MG/150 ML IVPB IV SCH (00:05)
[2016-07-18] MEDS: DOXYCYCLINE 100 MG in NS 250 ML IV SCH (02:01)
[2016-07-18] MEDS: SOLU-MEDROL IV SCH ×2 (03:15→12:01)
[2016-07-18] MEDS: ALBUTEROL NEB INH SCH ×2 (03:28→09:41)
[2016-07-18 06:38] LABS: MANUAL DIFF NEEDED? NO
[2016-07-18 06:46] LABS: BASO% 0.3 % (0.0-0.8); EOS% 1.6 % (0.0-10.0); HEMATOCRIT 35.4 % (37.0-47.0); HEMOGLOBIN 11.7 g/dL (12.0-16.0); IMM GRAN# 0.08 X1000 (0.0-0.04); IMM GRAN% 0.6 % (0.0-0.5); LYMPH# 1.23 X1000 (1.2-3.4); LYMPH% 9.7 % (20.5-51.1); MCHC 33.1 g/dL (33-37); MCV 93.7 FL (81-99); MONO# 0.99 X1000 (0.11-0.59); MONO% 7.8 % (1.7-9.3); MPV 9.5 FL (7.4-10.4); PLT 213 X1000 (130-400); RBC 3.78 XMIL (4.2-5.4)
[2016-07-18 06:56] LABS: AGAP 13; BUN 20 mg/dL (8-22); CHLORIDE 97 mmol/L (98-107); COSMO 274; MAGNESIUM 2.1 mg/dL (1.5-2.7); POTASSIUM 3.6 mmol/L (3.5-5.1); SODIUM 136 mmol/L (136-145); TCO2 26 mmol/L (25-35)
[2016-07-18] MEDS ORDERED: SYNTHROID PO SCH (07:00)
[2016-07-18] MEDS ORDERED: SPIRIVA INH SCH (07:30)
--- NOTE | 2016-07-18 07:43 | EKG Report ---
Test Performed on : 07/16/2016 7:37:51 PM Test Reason : sob Blood Pressure : / mmHG Vent. Rate : 081 BPM Atrial Rate : 081 BPM P-R Int : 152 ms QRS Dur : 098 ms QT Int : 404 ms P-R-T Axes : 076 -37 078 degrees QTc Int : 469 ms Normal sinus rhythm. Possible Left atrial enlargement Left axis deviation Left ventricular hypertrophy with repolarization abnormality Anterior infarct , age undetermined Abnormal ECG When compared with ECG of 19-OCT-2013 18:24, Anterior infarct is now present Unconfirmed Result
[2016-07-18 08:28] VITALS: BP 121/64
[2016-07-18] MEDS ORDERED: ZOLOFT PO SCH (09:00)
[2016-07-18] MEDS: PLAVIX PO SCH (09:02)
[2016-07-18] MEDS: MUCINEX PO SCH (09:02)
[2016-07-18] MEDS: TYLENOL PO PRN (10:02)
--- NOTE | 2016-07-18 15:01 | DISCHARGE SUMMARY ---
ADMISSION DATE: 07/16/2016 DISCHARGE DATE: 07/18/2016 SUBJECTIVE: A 65-year-old, obese female with history of CVA, COPD, hypertension and small-cell lung cancer. She presented to the emergency room yesterday with complaint that she had some slurred speech and some confusion earlier in the day. Apparently she was on the floor grooming her dog. She was unable to stand. She admits to having some pain with her shoulder and her right knee. She did not know the reason why she could not stand; however, her states that she was having some slurred speech and confusion. Subsequently, he called the ambulance. The patient was brought to the emergency department and was evaluated. Due to her presenting symptoms and previous CVA it was thought need to be admitted. During her presentation she was coughing, and also had a lot of expiratory wheezes and symptoms consistent with COPD exacerbation. She was treated during this time. She states her breathing is better and she is pretty insistent on going home. She says she has no neurologic problems. No trouble with her speech and she is pretty adamant about going home. PAST MEDICAL HISTORY: 1. Cerebrovascular accident 2. Chronic obstructive pulmonary disease. 3. Hypertension. 4. Sleep apnea. 5. Small cell lung cancer. 6. Treated radiation and chemotherapy. PAST SURGICAL HISTORY: Status post adenoidectomy and tonsillectomy, lung biopsies. Followed by I believe she said Dr. Chisholm's and Dr. Alcaraz. PRIMARY CARE PHYSICIAN: Dr. Rivera is her primary care. MEDICATIONS: She has Dulera inhaler at home. Nebulized treatments. She takes Spiriva and he does not have any O2 and states she has never qualified for O2 but she wants to go home. HOSPITAL COURSE: Her pulmonary angiogram done on the , no pulmonary emboli, stable scarring left lung. Interval improvement, prior multifocal patchy infiltrate. Dr. Joshi has evaluated. He feels she can go home as well. She did have an x-ray of her knee on the . No bony abnormality. Minimal arthritic changes. DISPOSITION: I will set her up to go home. FOLLOWUP INSTRUCTIONS: Follow up with Dr. Quintero, Dr. Alcaraz, and, I believe Dr. Chisholm. DISCHARGE INSTRUCTIONS: She will resume her home treatment. Take Spiriva. She takes nebulized inhalers. She is on Lipitor 80 mg a day. Take Tylenol as needed. Albuterol or ProAir HFA 8.5 g q.4 hours p.r.n. Zuleyma Jo. She has calcium carbonate and vitamin D3 600-400, one tablet bedtime. Plavix 75 mg a day. Benadryl 25 mg at bedtime. Aggrenox 1 tablet p.o. q.a.m. Furosemide 20 mg p.o. 2 to 4 times p.r.n. as needed. Hydrochlorothiazide 25 mg a day. Synthroid 100 mg q.a.m. Ativan 1 mg at bedtime. Antivert 25 mg q.6 hours p.r.n. Stelara 100 mcg/5 mcg 2 puffs b.i.d., multivitamin daily, omeprazole 20 mg at bedtime. Potassium chloride 20 mEq 2-4 times a day as needed, depending on her Lasix. Zoloft 100 mg a day, Spiriva 1 puff daily. Zanaflex which is tizanidine 4 mg q.8 hours p.r.n., trospium chloride 20 mg b.i.d. We will send her home on some doxycycline 100 mg twice a day for another 5 days. cc: Magdy Dueñas MD
== END 2016-07-18 15:40 | disposition home or self-care (01) ==
LOC: SUPCPDRO → ED 18:09 → 3N 07-17 00:35 → SUATTDRO 07-17 00:35
PROVIDERS: ATTEND Emergency Medicine

== ENCOUNTER 2016-09-27 14:59 | Inpatient (IN) ==
[2016-09-27] MEDS ORDERED: DUONEB (A & A) INH ONE (15:23)
--- NOTE | 2016-09-27 15:57 | ED EKG INTERP ---
This chart was entered by Juan Joseph Scribe, acting as scribe for William Ch MD. EKG Interpretation - EKG Time of EKG reading by physician:: 15:17 EKG Read and Signed by:: William Ch EKG Interpretation (*Must complete 3 of following elements*): Abnormal (poss LAE ;LAFB; septal infarct age undetermined) Rate: 99 Rhythm: sinus with premature atrial complexes This chart was documented by the indicated scribe, (Juan Joseph Scribe) and accurately reflects the services I performed and decisions made by me, William Ch MD, as attested by the provider's signature.
--- NOTE | 2016-09-27 16:06 | Diag Imaging Result Doc PS360 ---
EXAM: CHEST-2 VIEWS INDICATION: sob/ hx of lung cancer TECHNIQUE: 2 views COMPARISON: 07/16/2016 FINDINGS: There are vague infiltrates at both lung bases. There is no evidence of pneumothorax. At least no large pleural fluid collection is appreciated. Cardiac silhouette and central vasculature are grossly unremarkable. IMPRESSION: Bibasilar infiltrates suggesting edema +/- pneumonia. Electronically signed by Nilesh Flynn 09/27/2016 4:04 PM
--- NOTE | 2016-09-27 17:31 | PROVIDER DOCUMENTATION ---
This chart was entered by Juan Joseph Scribe, acting as scribe for William Ch MD. HPI-Respiratory General - General Chief Complaint: Shortness of Breath Stated Complaint: SOB Time Seen by Provider: 09/27/16 15:18 Source: patient Allergies/Adverse Reactions: Patient Allergies Allergy/AdvReac Type Severity Reaction Status Date / Time Penicillins Allergy Severe SWELLING Verified 09/27/16 15:49 oxycodone HCl * Allergy Mild Unknown Verified 09/27/16 15:49 [From Percocet] propoxyphene napsylate * Allergy Mild Unknown Verified 09/27/16 15:49 [From Darvocet-N 100] Home Medications: Home Medication List Medication Instructions Recorded Confirmed Last Taken Type Lorazepam [Ativan] 1 mg PO Q8H PRN PRN 01/11/12 09/27/16 07/16/16 History Sertraline HCl [Zoloft] 100 mg PO QAM 01/11/12 09/27/16 09/26/16 21:00 History Multivitamins/Minerals [Centrum 1 each PO QAM 09/03/12 09/27/16 09/27/16 08:00 History Silver] Calcium Carbonate/Vitamin D3 1 tab PO QHS 10/19/13 09/27/16 09/26/16 21:00 History [Calcium 600-Vit D3 400 Tablet] Mometasone/Formoterol INH [Dulera 2 puff INH RTBID 10/19/13 09/27/16 09/27/16 08 :00 History 100 Mcg/5 Mcg Inhaler] Levothyroxine [Synthroid] 100 mcg PO QAM 09/15/14 09/27/16 09/27/16 08:00 History Tiotropium Trade Inhaler 1 puff INH RTDAILY 09/15/14 09/27/16 09/27/16 08:00 History [Spiriva] Benzonatate [Tessalon] 100 - 200 mg PO TID PRN PRN #30 09/18/14 09/27/16 Rx capsule Clopidogrel [Plavix] 75 mg PO QAM 10/05/14 09/27/16 09/27/16 08:00 History ATORVAstatin [Lipitor] 80 mg PO QHS 03/01/16 09/27/16 09/26/16 21:00 History Dipyridamole/Aspirin S.a. 1 each PO QAM 03/01/16 09/27/16 09/27/16 08:00 History [Aggrenox] Furosemide 20 mg PO 2-4XDAY PRN PRN 03/01/16 09/27/16 03/01/16 11:30 History Potassium Chloride 20 meq PO 2-4XDAY PRN PRN 03/01/16 09/27/16 03/01/16 11:30 History Acetaminophen [Tylenol] 500 mg PO Q6H PRN PRN 07/17/16 09/27/16 Unknown History Albuterol Sulfate [Proair Hfa] 8.5 gm IH Q4H PRN 07/17/16 09/27/16 09/27/16 08: 00 History Diphenhydramine [Benadryl] 25 mg PO QHS 07/17/16 09/27/16 07/15/16 History Meclizine [Antivert] 25 mg PO Q6H PRN PRN 07/17/16 09/27/16 09/27/16 08:00 History Omeprazole 20 mg PO QHS 07/17/16 09/27/16 09/26/16 21:00 History Tizanidine HCl [Zanaflex] 4 mg PO Q8H PRN 07/17/16 09/27/16 07/15/16 History Trospium Chloride 20 mg PO BID 07/17/16 09/27/16 09/27/16 08:00 History Guaifenesin E.r. [Mucinex] 600 mg PO BID #60 tablet 07/18/16 09/27/16 Unknown Rx Cetirizine HCl [Zyrtec] 10 mg PO DAILY 09/27/16 09/27/16 09/26/16 21:00 History - History of Present Illness-Resp Nature of Presenting Problem: 65 yof obesese female hx of lung cancer reports was at Dr. Jorge office and he got an o2 sat of 70%. Pt reports her normal is 94% also reports she has had increased swelling of feet x 3 day with sob. Pt o2 sat in triage was 89%. Review of Systems - Adult - REVIEW OF SYSTEMS - ADULT Constitutional: denies: chills, fever, fatique Eyes: reports: no symptoms reported Ears, Nose, Mouth & Throat: reports: no symptoms reported Cardiovascular: denies: chest pain, irregular heart rate, orthopnea, syncope Respiratory: reports: shortness of breath. denies: cough, pleurisy, wheezing Gastrointestinal: denies: abdominal pain, diarrhea, nausea, vomiting Genitourinary: denies: dysuria, flank pain, frequent UTI's, urgency Musculoskeletal: reports: no symptoms reported Integumentary: reports: no symptoms reported Neurological: reports: no symptoms reported Psychiatric: reports: no symptoms reported Endocrine: reports: no symptoms reported Hematologic/Lymphatic: reports: no symptoms reported Allergic/Immunologic: reports: no symptoms reported All Other Systems: Reviewed and Negative Past History - Adult - PAST MEDICAL HISTORY-ADULT Review of Records: reports: Nursing Assessment Review, Medications Reviewed 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) Cardiovascular: reports: HTN, hyperlipidemia Respiratory: reports: cancer (lung), pneumonia Gastrointestinal: reports: GERD Obstetrical/Gynecological: reports: denies history Genitourinary: reports: denies history Musculoskeletal: reports: denies history Neurological: reports: CVA, TIA Psychiatric: reports: anxiety Endocrine/Immune: reports: denies history Other Conditions: reports: denies history - PRIOR SURGERIES/PROCEDURES Surgical/Procedure History: reports: tonsillectomy - PRIOR HOSPITALIZATIONS Prior Hospitalizations: reports: none - IMMUNIZATION STATUS Childhood Immunizations: See Nurse Assessment Flu Vaccine: See Nurse Assessment - FAMILY HISTORY Family History: reviewed, not pertinent - SOCIAL HISTORY Smoking: quit greater than 1 year, greater than 1 pack/day Substance Use: none/never Physical Exam-General - PHYSICAL EXAM-ADULT Initial Vital Signs Reviewed: Yes - CONSTITUTIONAL General Appearance: appears well, alert, no apparent distress - EYES Eyes: PERRL/EOMI, pink conjunctivae - HEAD, EARS, NOSE, MOUTH & THROAT HENMT: moist mucous membranes, pharynx normal - NECK Neck: non-tender, full range of motion, supple, normal inspection - RESPIRATORY Respiratory: chest non-tender, lungs clear, normal breath sounds, no pleuratic chest pain, no respiratory distress, no accessory muscle use - CARDIOVASCULAR Cardiovascular: regular rate, rhythm - GASTROINTESTINAL (ABDOMEN) Abdominal Exam: normal bowel sounds, non tender, soft, no organomegaly, no pulsatile mass - MUSCULOSKELETAL Back Exam: normal inspection, no CVA tenderness, no vertebral tenderness Extremity: normal range of motion, non-tender - SKIN Integumentary: normal color, normal turgor, warm/dry - NEUROLOGIC Neurologic: grossly normal - PSYCHIATRIC Psych/Mental Status: normal mood/affect, normal thought content, normal thought process, oriented x 3 Progress - PLAN OF CARE/RESULTS Progress/Plan/Lab Results: Vital Signs - 8 hr 09/27/16 15:08 09/27/16 16:04 09/27/16 16:54 Temperature 98.2 F Pulse Rate 99 H 94 H 94 H Respiratory Rate 18 16 17 Blood Pressure 115/64 129/86 O2 Sat by Pulse Oximetry 89 L 95 94 L Laboratory Results - last 24 hr 09/27/16 09/27/16 09/27/16 16:19 16:19 16:19 D-Dimer 0.97 H Troponin T < 0.010 [id number] Pept 2452 H Orders Category Date Time Status Oxygen Therapy- ED Nursing DIRECTED Care 09/27/16 15:23 Active Saline Loc DIRECTED Care 09/27/16 15:23 Active cxr [CHEST-2 VIEWS] [RAD] Stat Exams 09/27/16 15:25 Completed Ddimer [D-DIMER] [CHEM] Stat Lab 09/27/16 16:19 Completed TROPONIN T Stat Lab 09/27/16 16:19 Completed pro-bnp [PRO B-NATRIURETIC PEPTIDE] Stat Lab 09/27/16 16:19 Completed Albuterol 2.5MG/Ipratrop 0.5MG [Duoneb (A & A)] Med 09/27/16 15:23 Discontinued 3 ml INH NOW ONE Aerosol Treatments Routine Oth 09/27/16 15:24 Completed Aerosol Treatments Stat Oth 09/27/16 15:23 Completed Aerosol Treatments Stat Oth 09/27/16 15:24 Completed Pulse Oximetry Stat Oth 09/27/16 15:23 Completed EKG [EKG] Stat Ther 09/27/16 15:12 Ordered - REASSESSMENT Reassessment #1 Status: unchanged (pt still will desat off oxygen, elevate bnp, new onset CHF, will admit) - XRAY 1 XRAY: Bilateral XRAY Study: Chest Impression: Abnormal (bibasilar infiltrate suggesting edema+/- pneumonia) Departure - Departure Date of Disposition Decision: 09/27/16 Time of Disposition Decision: 17:29 DIAGNOSIS: CHF (congestive heart failure), NYHA class III Qualifiers: Congestive heart failure type: systolic Congestive heart failure chronicity: acute Qualified Code(s): I50.21 - Acute systolic (congestive) heart failure Disposition: ADMITTED INPATIENT 09 Certified Medical Emergency: Emergent Condition: Stable Referrals and Follow-Ups: Nicole Quintero MD [Primary Care Provider] - - Critical Care Note This patient required my direct & personal management of CC.: No Attestation - Physician/ YUMIKO Attestation The physician spent face to face time with patient:: Yes Advanced Practice Provider documentation review:: Supervising physician onsite and consulted in the evaluation and care of this patient. The physician did have a face to face encounter with the patient. This chart was documented by the indicated scribe, (Juan Joseph Scribe) and accurately reflects the services I performed and decisions made by me, William Ch MD, as attested by the provider's signature.
[2016-09-27] MEDS ORDERED: ATIVAN PO PRN (17:50)
[2016-09-27] MEDS ORDERED: ANTIVERT PO PRN (17:50)
[2016-09-27 17:52] LABS: MANUAL DIFF NEEDED? NO
[2016-09-27 17:54] LABS: BASO% 0.5 % (0.0-0.8); EOS# 0.18 X1000 (0.0-0.7); EOS% 1.7 % (0.0-10.0); HEMATOCRIT 35.2 % (37.0-47.0); HEMOGLOBIN 11.7 g/dL (12.0-16.0); IMM GRAN# 0.05 X1000 (0.0-0.04); IMM GRAN% 0.5 % (0.0-0.5); LYMPH# 1.15 X1000 (1.2-3.4); LYMPH% 10.9 % (20.5-51.1); MCH 30.5 PG (27-31); MCHC 33.2 g/dL (33-37); MCV 91.9 FL (81-99); MONO# 0.98 X1000 (0.11-0.59); MONO% 9.3 % (1.7-9.3); MPV 10.6 FL (7.4-10.4); NEUT% 77.1 % (42.2-75.2); PLT 215 X1000 (130-400); RBC 3.83 XMIL (4.2-5.4)
[2016-09-27] MEDS ORDERED: MERREM 500 MG in NS 50 ML IV ONE (18:00)
[2016-09-27 18:16] LABS: ALBUMIN 4.1 g/dL (3.5-5.0); CALCIUM 9.7 mg/dL (8.8-10.2); POTASSIUM 3.6 mmol/L (3.5-5.1); TOTAL BILIRUBIN 0.43 mg/dL (0.20-1.00); TOTAL PROTEIN 7.1 g/dL (6.3-8.3)
[2016-09-27 18:21] LABS: HEMOGLOBIN A1C 5.9 % (4.8-6.0)
[2016-09-27 19:27] LABS: CK INDEX 1.2 (0.0-2.5); CK-MB 3.47 ng/mL (0.0-5.0)
--- NOTE | 2016-09-27 19:54 | Diag Imaging Result Doc PS360 ---
EXAM: CT THORAX W/O CONTRAST HISTORY: pneumonia TECHNIQUE: CT chest without. Dose reduction protocol. COMPARISON: 07/16/2016 FINDINGS: There is trace left pleural fluid. No right-sided pleural effusion. There is also a small pericardial effusion. The heart is not enlarged. No thoracic aortic aneurysm. There are multifocal bilateral patchy infiltrates. There is also atelectasis and or fibrosis within the medial left lung. Mild emphysema. IMPRESSION: 1.Small multifocal patchy infiltrates 2.Left lung fibrosis 3.Trace left pleural fluid as well as a small pericardial effusion Electronically signed by Dylon Fajardo 09/27/2016 7:51 PM
[2016-09-27] MEDS: DUONEB (A & A) INH SCH ×2 (19:56→22:50)
[2016-09-27 21:00] LABS: URINE MICRO REVIEW NEEDED? NO; URINE SOURCE CLEAN CATCH
[2016-09-27 21:06] LABS: BILIRUBIN URINE NEGATIVE (NEGATIVE); BLOOD URINE NEGATIVE (NEGATIVE); COLOR YELLOW; GLUCOSE URINE NEGATIVE (NEGATIVE); LEUKOCYTES URINE MODERATE (NEGATIVE); NITRITE URINE NEGATIVE (NEGATIVE); PH URINE 6.5; PROTEIN URINE NEGATIVE (NEGATIVE); SP GRAVITY URINE 1.006; TURBIDITY URINE CLEAR (CLEAR); UROBILINOGEN URINE NORMAL (NORMAL)
[2016-09-27 21:07] LABS: UR EPITHELIAL CELLS <10 /HPF (<10); URINE BACTERIA 1+ /HPF; URINE CULTURE NEEDED? YES; URINE RBC <10 /HPF (<10)
--- NOTE | 2016-09-27 22:26 | HISTORY AND PHYSICAL ---
PRIMARY CARE PHYSICIAN: Nicole Quintero MD [employer] DRAFTER: Tl Smith MD [facility] SPECIALIST: Jarvis Alcaraz MD ONCOLOGIST: Dr. Eris Chisholm CHIEF COMPLAINT: "My legs have been swelling and I have been feeling very short of breath" HISTORY OF PRESENT ILLNESS: Ms. Alvarenga is a 65-year-old female with a history of morbid obesity, small-cell lung carcinoma status post chemotherapy and radiation , history of CVA, COPD and hypothyroidism, who was sent to the ER by Dr. Alcaraz. The patient states that she went to see Dr. Alcaraz for her routine followup, at which time when her O2 saturation was checked at his office it was noted to be low at 70% on room air. The patient also reports that for the last 7 days or so, she has had increasing swelling in her feet as well as increasing shortness of breath at rest and on exertion. Upon arrival to the ER, the patient was noted to have an O2 saturation of 89% on room air. The patient reports that she has been having some episodes of coughing, but denies having any fever, chills or change in appetite. The patient also denies having any chest pain. The patient states that her legs have swollen so much that she finds it difficult to wear shoes. The patient denies having any abdominal pain, nausea, vomiting or diarrhea. In the ER, a chest x-ray was done that revealed pneumonia and possible edema. PAST MEDICAL HISTORY: 1. Small-cell lung carcinoma, status post chemotherapy and radiation. 2. COPD. 3. History of CVA. 4. Depression. 5. Hypertension. 6. Obstructive sleep apnea. 7. Morbid obesity. 8. Hypothyroidism. PAST SURGICAL HISTORY: 1. Adenoidectomy. 2. Port placement. 3. Tonsillectomy. 4. Lung biopsy in 2011. FAMILY HISTORY: The patient's father had coronary artery disease. SOCIAL HISTORY: The patient is an ex-smoker. The patient denies any alcohol use. The patient is and lives at home with her . ALLERGIES: 1. Penicillin. 2. Oxycodone. 3. Propoxyphene. REVIEW OF SYSTEMS: A 12 point review of systems has been performed. Please refer to the history of present illness for pertinent positives and negatives. HOME MEDICATION: 1. Lipitor 80 mg p.o. at bedtime. 2. Calcium plus vitamin D 1 tab oral at bedtime. 3. Tessalon Perles 100 mg p.o. 3 times a day p.r.n. for cough. 4. Albuterol inhaler 1 inhalation every 4 hours p.r.n. for shortness of breath. 5. Tylenol 500 mg p.o. every 6 hours p.r.n. for pain. 6. Aggrenox 1 tablet Oral daily. 7. Plavix 75 mg oral every morning. 8. Zyrtec 10 mg p.o. daily. 9. Mucinex 600 mg p.o. twice a day. 10. Lasix 20 mg p.o. daily p.r.n. 11. Dulera 2 puffs inhaled twice a day. 12. Antivert 25 mg p.o. every 6 hours p.r.n. 13. Ativan 1 mg p.o. every 8 hours p.r.n. 14. Synthroid 100 mcg oral every morning. 15. Zanaflex 4 mg p.o. every 8 hours p.r.n. for spasms. 16. Spiriva 18 mcg inhaled daily. 17. Zoloft 100 mg p.o. every morning. 18. Potassium chloride 20 mEq oral daily p.r.n. 19. Multivitamin 1 tab oral daily. 20. Trospium 20 mg p.o. twice a day. PHYSICAL EXAMINATION: VITAL SIGNS: Temperature 98.2 degrees, blood pressure 115/64, heart rate 99, respirations 18, O2 saturations 89% on room air. GENERAL: This is a morbidly obese female sitting on the stretcher in no acute distress. SKIN: No rashes, no lesions. Normal capillary refill. HEAD: Normocephalic, atraumatic. Eyes, conjunctiva clear, EOMI, PERRLA. NECK: Supple. Positive for distention of the neck veins. No carotid bruits. HEART: S1, S2 normal. Tachycardic. No murmurs, no rubs. LUNGS: Coarse breath sounds bilaterally with crackles. No wheezing. ABDOMEN: Positive bowel sounds. Soft, obese, nontender, nondistended. EXTREMITIES: 3+ edema extending to the knees. No cyanosis. No calf tenderness. NEUROLOGIC: The patient is alert and oriented x3. No focal neurologic deficits noted. Cranial nerves 2 through 12 intact. LABORATORY: Sodium 133, potassium 3.6, chloride 92, CO2 26, BUN 14, creatinine 1, glucose 97. UA positive for bacteria, moderate leukocytes and 10-20 White blood cells. AST 41 , ALT 31. White blood cell count 10.5, hemoglobin 11, hematocrit 35, platelets 215,000. CRP 50. ProBNP 2452, hemoglobin A1c 5.9. IMAGING: Chest x-ray shows pneumonia. CT of the chest shows multifocal patchy infiltrates. Small pericardial effusion. ASSESSMENT AND PLAN: 1. Bilateral lobe pneumonia. We will start the patient on IV antibiotic therapy after blood cultures and sputum culture have been obtained. We will also start the patient on incentive spirometry and supplemental oxygen as well as bronchodilator therapy. Pulmonary will be consulted. 2. Volume overload with peripheral edema. We will start the patient on IV Lasix and monitor the patient's urine output closely as well as daily weights. We will also check a 2-dimensional echocardiogram. We will consult the orthoptist for further recommendations. 3. Urinary tract infection. IV antibiotics will be started. We will follow up on the urine culture results. 4. Morbid obesity. Aware. 5. Obstructive sleep apnea. Aware. 6. Hypothyroidism. Continue on Synthroid. 7. Situational depression. Continue on Zoloft. 8. Anxiety disorder. Continue on Ativan p.r.n. 9. History of stroke. Continue on Plavix and Aggrenox. 10. Hypertension. Stable. 11. History of small-cell lung carcinoma status post chemotherapy and radiation. Aware. The patient is followed by Dr. Chisholm as outpatient. 12. Gastroesophageal reflux disease. Continue on Prilosec. 13. DVT prophylaxis. We will start the patient on Lovenox. 14. The plan of care was discussed with the patient and her at the bedside. cc: Arlene Bhatti MD [facility]
[2016-09-27] MEDS: LIPITOR PO SCH (22:33)
[2016-09-27] MEDS: LASIX IV SCH (22:33)
[2016-09-27] MEDS: CALTRATE 600 + D PO SCH (22:33)
[2016-09-27] MEDS: TESSALON PO SCH (22:36)
[2016-09-27] MEDS: ALBUMIN 25% IV SCH (22:44)
[2016-09-27] MEDS: DULERA 100 MCG/5 MCG INHALER INH SCH (22:51)
[2016-09-28] MEDS: DUONEB (A & A) INH SCH ×6 (03:14→23:10)
[2016-09-28] MEDS: MERREM 500 MG in NS 50 ML IV SCH ×3 (04:23→20:57)
[2016-09-28 04:35] LABS: ALLEN TEST YES; BE 7.2 mmoll (-3.0-3.0); BLOOD TYPE ARTERIAL; DRAW SITE R RADIAL; PCO2(98.6) 45 mmHg (35-45); PO2(98.6) 76 mmHg (60-100); SAMPLE BLOOD; pH(98.6) 7.46 (7.35-7.45)
[2016-09-28 04:37] LABS: MODALITY CANNULA
--- NOTE | 2016-09-28 05:09 | EKG Report ---
Test Performed on : 09/27/2016 3:17:31 PM Test Reason : SOB Blood Pressure : / mmHG Vent. Rate : 099 BPM Atrial Rate : 099 BPM P-R Int : 170 ms QRS Dur : 104 ms QT Int : 390 ms P-R-T Axes : 064 -50 076 degrees QTc Int : 500 ms Sinus rhythm. with premature atrial complexes. Possible Left atrial enlargement Left anterior fascicular block Septal infarct (cited on or before 16-JUL-2016) Abnormal ECG When compared with ECG of 16-JUL-2016 19:37, premature atrial complexes. are now present Questionable change in initial forces of Anterior leads Unconfirmed Result
[2016-09-28] MEDS: LASIX IV SCH ×3 (05:35→17:04)
[2016-09-28] MEDS: PRILOSEC PO SCH ×2 (05:35→06:55)
[2016-09-28] MEDS: SYNTHROID PO SCH ×2 (05:35→06:56)
[2016-09-28 06:04] LABS: MANUAL DIFF NEEDED? NO
[2016-09-28 06:11] LABS: BASO% 0.5 % (0.0-0.8); EOS# 0.24 X1000 (0.0-0.7); EOS% 2.8 % (0.0-10.0); HEMOGLOBIN 10.8 g/dL (12.0-16.0); IMM GRAN# 0.03 X1000 (0.0-0.04); IMM GRAN% 0.3 % (0.0-0.5); LYMPH# 0.88 X1000 (1.2-3.4); LYMPH% 10.2 % (20.5-51.1); MCH 30.3 PG (27-31); MCHC 32.7 g/dL (33-37); MCV 92.4 FL (81-99); MONO# 0.84 X1000 (0.11-0.59); MONO% 9.8 % (1.7-9.3); NEUT% 76.4 % (42.2-75.2); PLT 206 X1000 (130-400); RBC 3.57 XMIL (4.2-5.4)
[2016-09-28 06:35] LABS: CALCIUM 9.8 mg/dL (8.8-10.2); POTASSIUM 3.6 mmol/L (3.5-5.1)
--- NOTE | 2016-09-28 07:04 | EKG Report ---
Test Performed on : 09/28/2016 05:53:49 AM Test Reason : chf Blood Pressure : / mmHG Vent. Rate : 089 BPM Atrial Rate : 089 BPM P-R Int : 176 ms QRS Dur : 104 ms QT Int : 396 ms P-R-T Axes : 066 -36 083 degrees QTc Int : 481 ms Normal sinus rhythm. Possible Left atrial enlargement Left axis deviation Septal infarct (cited on or before 16-JUL-2016) Abnormal ECG When compared with ECG of 27-SEP-2016 15:17, (Unconfirmed) premature atrial complexes. are no longer present ST more depressed in aVL T wave amplitude has increased in V1-V2-V3 Confirmed by Joey Castano DO ([id number]) on 10/01/2016 7:51:17 PM
[2016-09-28] MEDS: MUCOMYST 20% INH SCH ×2 (08:09→19:15)
[2016-09-28] MEDS: CENTRUM SILVER PO SCH (09:38)
[2016-09-28] MEDS: ZOLOFT PO SCH (09:39)
[2016-09-28] MEDS: LOVENOX SUBQ SCH ×3 (09:39→10:48)
[2016-09-28] MEDS: PLAVIX PO SCH (09:39)
[2016-09-28] MEDS: ZYRTEC PO SCH (09:39)
[2016-09-28] MEDS: TESSALON PO SCH ×3 (09:39→20:57)
[2016-09-28] MEDS: AGGRENOX PO SCH (09:41)
[2016-09-28] MEDS: ALBUMIN 25% IV SCH (09:42)
[2016-09-28] MEDS ORDERED: MEDROL DOSEPAK PO SCH (13:30)
[2016-09-28] MEDS: TYLENOL PO PRN (14:15)
--- NOTE | 2016-09-28 14:27 | CONSULTATION ---
DATE OF CONSULTATION: 09/28/2016 IMPRESSIONS: 1. Dyspnea multifactorial with bilateral pneumonitis and exacerbation of chronic congestive heart failure. 2. Acute on chronic congestive heart failure, also likely multifactorial. I suspect the greater component of this is right-sided heart failure related to obesity and obstructive sleep apnea. There may also be a component of left ventricular diastolic heart failure. 3. Previous negative coronary angiography in 2014. 4. Previous small cell carcinoma treated with chemotherapy and radiation therapy approximately 5 years ago. 5. Morbid obesity. 6. Chronic obstructive pulmonary disease. 7. Hypertension. 8. Hyperlipidemia. RECOMMENDATIONS: 1. Continue diuresis with 40 mg Lasix IV q.12 hours as you are doing. 2. Treat pulmonary processes and sleep apnea as you are doing. 3. Follow up echocardiography. 4. Venous Doppler study. This has already been completed and is negative for DVT. HISTORY: This 65-year-old white female with multiple medical problems recently returned for followup. She had had progressive dyspnea and was admitted for further workup. She has a history as outlined above including hypertension, hyperlipidemia, previous long-standing cigarette use, COPD, morbid obesity, obstructive sleep apnea, and small cell carcinoma treated with chemotherapy and radiation therapy approximately 5 years ago. She relates that she has been feeling somewhat "draggy" for the last 6 weeks. She specifies fatigue and weakness. She has had progressive exertional shortness of breath. There has been no angina. With worsening dyspnea an emergence of increasing pedal edema, she was admitted for further management. She uses her CPAP inconsistently, if very much at all. She relates she has quit smoking but is rather evasive on the subject and discussing her smoking habits is concerned. She has had some orthopnea. PAST MEDICAL HISTORY: 1. Hypertension. 2. Hyperlipidemia. 3. Small cell lung cancer treated with radiation therapy and chemotherapy approximately 5 years ago. Patient relates that tumor was in the left lower lung region. 4. Previous cerebrovascular accident and transient ischemic attack. 5. Chronic kidney disease. 6. Peripheral vascular disease. 7. Hypothyroidism. 8. Depression. 9. Chronic obstructive pulmonary disease. 10. Obstructive sleep apnea. PAST SURGICAL HISTORY: Includes esophageal stricture dilatation, lung mass biopsy, mediastinoscopy and lymph node biopsy, tonsillectomy, and adenoidectomy. MEDICATIONS: Prior to admission as listed. SOCIAL HISTORY: She is and retired. She lives with her . She smoked cigarettes for about 30 years at a rate of 1 pack cigarettes per day but discontinued this. She does not use alcohol. FAMILY HISTORY: Negative for premature coronary disease. REVIEW OF SYSTEMS: Pulmonary: Noteworthy for dyspnea, orthopnea, as well as cough that has been productive but currently in the hospital it is more nonproductive since she has been in the bed. Gastrointestinal: Review of systems negative. Constitutional: Review of systems noteworthy for fatigue. Remainder of review of systems negative/noncontributory beyond history present illness with 14 total systems reviewed. PHYSICAL EXAMINATION: General: This is a morbidly obese, older adult female in no distress, on supplemental oxygen with nasal cannula. Vital signs: Blood pressure 142/52, heart rate 94 and regular. HEENT: Extraocular movements intact. Mucous membranes moist. Neck: Supple. Jugular distention is present, suggesting elevated central venous pressure. There are no carotid bruits. Chest: Auscultation of the chest reveals prominent scattered bilateral rhonchi. Cardiac Exam: Reveals a regular rate and rhythm without appreciable murmur or gallop. Abdomen: Soft, nontender. Bowel sounds are normal. Extremities: Demonstrate moderate lower extremity edema bilaterally with chronic venous stasis changes. Neurologic Exam: Reveals her to be alert and fully oriented. Speech is fluent. She moves all 4 extremities equally well. Skin: Warm and dry. Psych exam: Reveals her mood to be appropriate. ECG: Demonstrates sinus rhythm. Left atrial abnormality. Left axis deviation. Cannot rule out septal infarct of undetermined age. cc: Salomon Thurman MD
--- NOTE | 2016-09-28 14:37 | ECHO REPORT ---
ORDER DATE: 09/28/2016 INDICATION FOR THE STUDY: CHF, morbid obesity, COPD, history of lung cancer. FINDINGS: 1. Right atrium is mildly enlarged 4.5 cm. 2. Mild tricuspid regurgitation. RV systolic pressure of 49. 3. Normal RV size and systolic function. 4. Mild pulmonic insufficiency. 5. Mild left atrial enlargement at 4.2 cm. 6. No mitral prolapse. Mild mitral regurgitation. 7. Normal LV size, end-diastolic dimension of 4.2. Normal wall thicknesses with a posterior and interventricular septal wall thickness 1.1 cm each. Normal to hyperdynamic LV systolic function with an estimated EF greater than 70%. 8. Aortic valve opens well. It is trileaflet. No evidence of stenosis or insufficiency. 9. Aorta appears normal in visualized segments. 10. No pericardial effusion seen. 11. There is no evidence of significant LV outflow tract obstruction identified. cc: MD Arlene Win MD
--- NOTE | 2016-09-28 14:37 | CONSULTATION ---
DATE OF CONSULTATION: 09/28/2016 REFERRING PHYSICIAN: Arlene Bhatti MD CHIEF COMPLAINT: Evaluation for pneumonia, COPD, in a patient with the possibility of CHF and history of small cell lung cancer. HISTORY OF PRESENT ILLNESS: A 65-year-old female with moderate COPD, morbid obesity, and sleep apnea on a home CPAP machine but so far not on home oxygen was in the office yesterday with oxygen desaturation and a CT scan showed patchy infiltrates. CT scan report and images were reviewed. PAST MEDICAL HISTORY: Hypothyroidism, sleep apnea, morbid obesity, hypertension, depression, history of CVA with minimal remaining weakness, COPD, and small cell lung cancer status post chemotherapy and radiation with Dr. Chisholm. PAST SURGICAL HISTORY: Lung biopsy in 2011, tonsillectomy, port placement, and adenoidectomy. FAMILY HISTORY: Coronary artery disease and hypertension. SOCIAL HISTORY: Ex-smoker. and living with her . ALLERGIES: Possibly to propoxyphene, oxycodone, and penicillin. MEDICATIONS: Medications in the hospital were reviewed and they include: 1. Tylenol. 2. Mucomyst. 3. Nebulizer treatments. 4. Lipitor. 5. Tessalon. 6. Zyrtec. 7. Plavix. 8. Aggrenox. 9. Lovenox. 10.Lasix. 11.Synthroid. 12.Ativan. 13.Antivert. 14.Meropenem. 15.Dulera. 16.Centrum. 17.Prilosec. 18.Zoloft. 19.Spiriva. 20.I am adding a Medrol pack. REVIEW OF SYSTEMS: As detailed in the History of Present Illness, otherwise noncontributory. PHYSICAL EXAMINATION: Vital Signs: As noted. General: Awake. Communicative. In bed. Overweight. Family is at the bedside. Head and Neck: Trachea is midline. Wide neck circumference. Chest: A few crackles and prolonged expiratory phase. Cardiac: S1, S2. Abdomen: Nontender. Extremities: +2 pedal edema. Neurological: Awake and communicative. LABS AND INVESTIGATIONS: CBC, CMP, and chest CT scan were reviewed. ProBNP is 2452 and ABG is also noted with a pH of 7.46, pCO2 45, and PO2 76 on 2 L nasal cannula. ASSESSMENT: A 65-year-old female with pneumonia, possibility of congestive heart failure, chronic obstructive pulmonary disease exacerbation, sleep apnea not so confined with home oxygen with a home CPAP machine, and now with hypoxia. PLAN: I agree with steroids, bronchodilators, antibiotics, cardiology evaluation, and diuresis. Home CPAP machine encouraged and asked to bring it to the hospital to use it here; offered BiPAP possibility. cc: Jarvis Alcaraz MD
[2016-09-28] MEDS: MEDROL PO SCH ×2 (16:31→20:56)
[2016-09-28] MEDS: SPIRIVA INH SCH (16:34)
[2016-09-28] MEDS: DULERA 100 MCG/5 MCG INHALER INH SCH (16:35)
--- NOTE | 2016-09-28 18:56 | PROGRESS NOTE ---
DATE: 09/28/2016 SUBJECTIVE: The patient states that she still feels short of breath. She does have significant lower extremity edema but it is slightly improved today. OBJECTIVE: Vital Signs: Temperature 98.4 degrees, blood pressure 142/52, heart rate 94, respirations 22, O2 saturations 94% on 2 L nasal cannula. General: This is a morbidly obese female, lying in bed, in no acute distress. Head: Normocephalic, atraumatic. Heart: S1, S2. Normal. Regular rate and rhythm. Lungs: Coarse breath sounds bilaterally with crackles and mild expiratory wheezes. Abdomen: Positive bowel sounds. Soft, obese, nontender, nondistended. Extremities: Three plus edema. No cyanosis. No calf tenderness. Neurologic: The patient is alert and oriented x3. No focal neurologic deficits noted. LABS: White blood cell count 8.6, hemoglobin 10, hematocrit 33, platelets 206,000. Sodium 140, potassium 3.6, chloride 96, CO2 31, BUN 14, creatinine 1.1, glucose 116. ASSESSMENT AND PLAN: 1. Congestive heart failure exacerbation. The patient's echocardiogram reveals an ejection fraction of 60%. We will continue to diurese the patient and monitor her volume status closely. We will also place the patient on fluid restriction. Further recommendations to follow from the bank cashier. 2. Pneumonia. Continue on Merrem plus bronchodilator therapy and incentive spirometry. Pulmonary is following. 3. Chronic obstructive pulmonary disease exacerbation. Continue with bronchodilator therapy and steroid therapy as directed by Dr. Alcaraz. 4. Hypothyroidism. Continue on Synthroid. 5. History of stroke. Continue on Plavix. 6. Obstructive sleep apnea. Aware. The patient states that she does have a CPAP machine. Will encourage the patient to have her bring that machine in so she can use it at night while in the hospital. 7. Situational depression. Continue on Zoloft. 8. Renal insufficiency. We will continue to monitor the patient's renal function closely while on diuretic therapy. 9. Urinary tract infection. The urine culture is growing gram negative rods. Continue on antibiotic therapy. 10.Morbid obesity. Aware 11.Deep vein thrombosis prophylaxis. Continue on Lovenox. cc: Arlene Bhatti MD [facility]
[2016-09-28] MEDS: LIPITOR PO SCH (20:56)
[2016-09-28] MEDS: CALTRATE 600 + D PO SCH (20:57)
[2016-09-29] MEDS: DUONEB (A & A) INH SCH ×6 (03:34→22:57)
[2016-09-29] MEDS: MERREM 500 MG in NS 50 ML IV SCH ×4 (04:18→19:35)
[2016-09-29] MEDS: SYNTHROID PO SCH ×2 (05:40→06:47)
[2016-09-29] MEDS: LASIX IV SCH ×2 (05:40→18:26)
[2016-09-29] MEDS: PRILOSEC PO SCH ×2 (05:40→06:47)
[2016-09-29 06:35] LABS: BASO% 0.2 % (0.0-0.8); EOS# 0.02 X1000 (0.0-0.7); EOS% 0.2 % (0.0-10.0); HEMATOCRIT 36.1 % (37.0-47.0); HEMOGLOBIN 11.8 g/dL (12.0-16.0); IMM GRAN# 0.07 X1000 (0.0-0.04); IMM GRAN% 0.6 % (0.0-0.5); LYMPH# 0.86 X1000 (1.2-3.4); LYMPH% 7.5 % (20.5-51.1); MANUAL DIFF NEEDED? YES; MCH 30.4 PG (27-31); MCHC 32.7 g/dL (33-37); MONO# 0.56 X1000 (0.11-0.59); MONO% 4.9 % (1.7-9.3); MPV 10.4 FL (7.4-10.4); NEUT% 86.6 % (42.2-75.2); PLT 232 X1000 (130-400); RBC 3.88 XMIL (4.2-5.4)
[2016-09-29 06:40] LABS: CALCIUM 9.6 mg/dL (8.8-10.2); POTASSIUM 4.1 mmol/L (3.5-5.1)
[2016-09-29 07:21] LABS: LYMPHS 2 % (21-51); MONO 7 % (1-9)
[2016-09-29] MEDS: MUCOMYST 20% INH SCH ×2 (07:43→19:39)
[2016-09-29] MEDS: SPIRIVA INH SCH (08:08)
[2016-09-29] MEDS: TESSALON PO SCH ×3 (09:10→20:42)
[2016-09-29] MEDS: MEDROL PO SCH ×4 (09:11→20:44)
[2016-09-29] MEDS: LOVENOX SUBQ SCH (09:38)
[2016-09-29] MEDS: ZOLOFT PO SCH (09:38)
[2016-09-29] MEDS: CENTRUM SILVER PO SCH (09:38)
[2016-09-29] MEDS: MIRALAX PO SCH (09:38)
[2016-09-29] MEDS: PLAVIX PO SCH (09:38)
[2016-09-29] MEDS: AGGRENOX PO SCH (09:39)
[2016-09-29] MEDS: ZYRTEC PO SCH (09:41)
[2016-09-29] MEDS: ALBUMIN 25% IV SCH (09:41)
--- NOTE | 2016-09-29 16:10 | PROGRESS NOTE ---
DATE: 09/29/2016 SUBJECTIVE: Patient denies dyspnea on supplemental oxygen per nasal cannula. However, she notes drop in oxygen saturation if she takes all for nasal cannula oxygen. She has not gotten out of bed very much. There has been no chest pain. Moderate diuresis reflected in input and output. OBJECTIVE: Vital Signs: Blood pressure 110/69, heart rate 78 and regular. Oxygen saturation 92% on nasal cannula oxygen at 3 L. Jugular venous distention cannot be appreciated. Chest: Auscultation of the chest reveals a few bibasilar crackles. Patient noted to cough vigorously when she tries to take a deep breath, but otherwise seems to be breathing shallow. Cardiac: Reveals a regular rate and rhythm without appreciable murmur or gallop. Extremities: Venous stasis changes, but no edema. LABORATORY DATA: Noteworthy for a BUN of 17, creatinine 1.1, potassium 4.1. IMPRESSION: 1. Dyspnea, multifactorial, with possible bilateral pneumonitis, exacerbation of congestive heart failure, and component of atelectasis. 2. Acute on chronic congestive heart failure, likely multifactorial. Suspect component of right- sided heart failure as well as left ventricular diastolic heart failure. 3. Previous negative coronary angiography in 2014. 4. Previous small cell carcinoma treated with chemotherapy and radiation therapy. Tumor located in left lower medial lung region. This was about 5 years ago. 5. Morbid obesity. 6. Chronic obstructive pulmonary disease. 7. Hypertension. 8. Hyperlipidemia. RECOMMENDATIONS: 1. Continue diuresis. 2. Mobilize patient and pursue pulmonary toilet. cc: Salomon Thurman MD
[2016-09-29] MEDS ORDERED: VANCOMYCIN IV PER PHARMACY MISC SCH (17:00)
--- NOTE | 2016-09-29 17:34 | PROGRESS NOTE ---
DATE: 09/29/2016 SUBJECTIVE: The patient states that she feels a little bit better but she is still very short of breath with minimal exertion. The swelling in her legs is mildly improved. OBJECTIVE: Vital Signs: Temperature 99 degrees, blood pressure 130/48, heart rate 99, respirations 20, O2 saturations 96% on 4 L nasal cannula. General: This is a morbidly obese female, sitting up in bed, in no acute distress. Head: Normocephalic, atraumatic. Heart: S1, S2 normal. Regular rate and rhythm. Lungs: Coarse breath sounds bilaterally with crackles and expiratory wheezes. Abdomen: Positive bowel sounds. Soft, obese, nontender, nondistended. Extremities: 2+ edema. No cyanosis. No calf tenderness. Neurologic: The patient is alert and oriented x3. LABS: White blood cell count 11, hemoglobin 11, hematocrit 36, platelets 232,000. Sodium 140, potassium 4.1, chloride 95, CO2 33, BUN 17, creatinine 1.1, glucose 189. ASSESSMENT AND PLAN: 1. Acute on chronic congestive heart failure exacerbation. Continue on diuretic therapy. Further management as per the aoc director combat plans officer. 2. Pneumonia. Continue on Merrem. We will also add vancomycin. Continue with bronchodilator therapy. 3. Urinary tract infection secondary to Citrobacter. Continue on the current IV antibiotic regimen. 4. Chronic obstructive pulmonary disease exacerbation. Continue with bronchodilator therapy and steroid therapy. 5. Hypothyroidism. Continue on Synthroid. 6. History of cerebrovascular accident. Continue on Plavix. 7. Obstructive sleep apnea. The patient's CPAP machine is in her room. It will be set up by the respiratory therapist for use at bedtime. 8. Renal insufficiency. Stable. We will continue to monitor this closely while the patient is on diuretic therapy. 9. Morbid obesity. Aware. 10. Deep vein thrombosis prophylaxis. Continue on Lovenox. cc: Arlene Bhatti MD
[2016-09-29] MEDS: DULERA 100 MCG/5 MCG INHALER INH SCH (19:40)
[2016-09-29] MEDS: VANCOMYCIN 2 GM in NS 500 ML IV SCH (20:42)
[2016-09-29] MEDS: LIPITOR PO SCH (20:43)
[2016-09-29] MEDS: CALTRATE 600 + D PO SCH (20:44)
[2016-09-30] MEDS: MIRALAX PO SCH ×3 (00:52→20:42)
[2016-09-30] MEDS: ATIVAN PO PRN ×2 (01:46→20:39)
[2016-09-30] MEDS: DUONEB (A & A) INH SCH ×6 (03:14→23:11)
[2016-09-30] MEDS: MERREM 500 MG in NS 50 ML IV SCH ×2 (03:58→12:00)
[2016-09-30 04:59] LABS: HEMATOCRIT 35.2 % (37.0-47.0); HEMOGLOBIN 11.5 g/dL (12.0-16.0); MCHC 32.7 g/dL (33-37); MCV 94.9 FL (81-99); MPV 10.2 FL (7.4-10.4); RBC 3.71 XMIL (4.2-5.4)
[2016-09-30 05:33] LABS: CALCIUM 9.9 mg/dL (8.8-10.2); POTASSIUM 3.4 mmol/L (3.5-5.1)
[2016-09-30] MEDS: SYNTHROID PO SCH (06:24)
[2016-09-30] MEDS: LASIX IV SCH ×3 (06:24→20:39)
[2016-09-30] MEDS: PRILOSEC PO SCH (06:25)
[2016-09-30] MEDS: MEDROL PO SCH ×4 (07:46→20:54)
--- NOTE | 2016-09-30 07:56 | Diag Imaging Result Doc PS360 ---
CHEST-PORTABLE - 09/30/2016 INDICATION: dyspnea TECHNIQUE: COMPARISON: 09/27/2016 FINDINGS: There is severe worsening in the bilateral central and basilar ill-defined infiltrates. These are mostly alveolar. Heart size is top normal. Pulmonary vascularity is normal. No pneumothorax or large effusion. IMPRESSION: Severe worsening in bilateral infiltrates. Most compatible with pneumonia or aspiration. ARDS is also possible. Electronically signed by Bry Taylor 09/30/2016 7:53 AM
[2016-09-30] MEDS: ZOLOFT PO SCH (08:07)
[2016-09-30] MEDS: CENTRUM SILVER PO SCH (08:07)
[2016-09-30] MEDS: ZYRTEC PO SCH (08:07)
[2016-09-30] MEDS: PLAVIX PO SCH (08:07)
[2016-09-30] MEDS: TESSALON PO SCH ×3 (08:08→17:37)
[2016-09-30] MEDS: AGGRENOX PO SCH (08:08)
[2016-09-30] MEDS: LOVENOX SUBQ SCH (08:08)
[2016-09-30] MEDS: MUCOMYST 20% INH SCH ×2 (08:14→19:04)
[2016-09-30] MEDS: DULERA 100 MCG/5 MCG INHALER INH SCH ×2 (08:15→19:02)
[2016-09-30] MEDS: SPIRIVA INH SCH (08:16)
--- NOTE | 2016-09-30 08:17 | Extremity Venous Study ---
PROCEDURE NAME: Venous U/S Bilateral Legs - 09/28/2016 STUDY: Bilateral lower extremity venous duplex, and color flow imaging study using the [employer] Vivid E9 Ultrasound System with a 9 L-D transducer. REFERRING PHYSICIAN: Arlene Bhatti MD PATIENT PROFILE: A 65-year-old female. SOLUTION ANALYST: Marlon Castañeda RVT INDICATION: 1. Shortness of breath; ICD 10 R06.02 2. Swelling of the limb; ICD 10 M79.89. FINDINGS: The right common femoral vein and its branches, deep and superficial femoral veins were satisfactorily imaged. They had flow through them and were compressible. Right popliteal vein and the deep veins below the right knee were all compressible and had flow through them. The superficial veins of the right lower extremity were compressible throughout their length. The left common femoral vein and its branches, deep and superficial femoral veins were also satisfactorily imaged. They had flow through them and were compressible. Left popliteal vein and the deep veins below the left knee were all compressible and had flow through them. The superficial veins of the left lower extremity were compressible throughout their length. INTERPRETATION: No evidence of acute deep or superficial venous thrombosis of the bilateral lower extremities. cc: MD Arlene Bowles MD
[2016-09-30 08:48] LABS: ALLEN TEST YES; BE 8.3 mmoll (-3.0-3.0); BLOOD TYPE ARTERIAL; DRAW SITE L RADIAL; MODALITY VENTIMASK; O2(CT) 17.8 mL/dL (15.0-23.0); PCO2(98.6) 39 mmHg (35-45); PO2(98.6) 64 mmHg (60-100); SAMPLE BLOOD; SAO2 97.3 % (95.0-100.0); THB 13.4 g/dL (11.5-17.4); pH(98.6) 7.52 (7.35-7.45)
--- NOTE | 2016-09-30 15:01 | PROGRESS NOTE ---
DATE: 09/30/2016 SUBJECTIVE: The patient was noted to be in moderate respiratory distress this morning. She is very anxious as well. In light of this the patient was transferred to the ICU. OBJECTIVE: Vital Signs: Temperature 100.9 degrees, blood pressure 149/78, heart rate 114, respirations 20, O2 saturations 93% on a Ventimask. Intake 1.3 L, output 2.1 L. General: This is a morbidly obese female lying in bed in moderate distress. Head: Normocephalic, atraumatic. Heart: S1, S2 normal tachycardic. Lungs: Coarse breath sounds bilaterally with crackles and rhonchi throughout all lung crabtree. Abdomen: Positive bowel sounds. Soft, obese, nontender, nondistended. Extremities: +1 edema. No cyanosis. No calf tenderness. Neuro : The patient is very anxious. She is awake and alert and she is able to move all 4 extremities. LABS: White blood cell count 16, hemoglobin 11, hematocrit 35, platelets 275, 000. Sodium 140, potassium 3.4, chloride 94, CO2 28, BUN 24, creatinine 1.1, glucose 156. ProBNP 4111. ABG pH of 7.5, pCO2 39, PO2 64, bicarb 31, O2 saturations 97%. Chest x-ray shows worsening of the bilateral lung infiltrates. ASSESSMENT AND PLAN: 1. Acute hypoxemic respiratory failure. Multifactorial. The patient's chest x- ray has worsened since admission. Her oxygen requirements have also increased today. Will transfer the patient to the ICU and consult ID for further assistance with antibiotic choice. Continue with diuresis and IV antibiotic therapy plus bronchodilator therapy. The case was discussed with Dr. Alcaraz. 2. Pneumonia. The patient's chest x-ray appears to have worsened today. Will continue on Merrem and vancomycin. ID has been consulted. 3. Acute on chronic congestive heart failure exacerbation. Continue on IV Lasix. Cardiology is following. 4. Anxiety disorder. Aware. Will avoid sedating medications at this time given the patient's poor respiratory status. 5. Obstructive sleep apnea. Aware. The patient's CPAP machine is in the room. 6. Hypothyroidism. Continue on Synthroid. 7. Chronic obstructive pulmonary disease exacerbation. Continue on bronchodilator therapy and steroid therapy. 8. Urinary tract infection secondary to Citrobacter. Continue on IV antibiotic therapy. 9. History of cerebrovascular accident. Continue on Plavix. 10. Leukocytosis. Will continue on antibiotic therapy and follow up the culture results. 11. Hypokalemia. Will replace the patient's potassium. 12. Renal insufficiency. Stable. Will continue to monitor this closely while the patient is on diuretic therapy. cc: Arlene Bhatti MD [facility]TDD
--- NOTE | 2016-09-30 15:25 | CONSULTATION ---
DATE OF CONSULTATION: 09/30/2016 CONCLUSION: Patient is admitted the hospital with a worsening bilateral pneumonia. She has a history of lung cancer. It should be noted patient also has a urinary tract infection which is symptomatic RECOMMENDATIONS: I agree with Dr. Bhatti changing the patient's antibiotics to a combination of vancomycin and meropenem. I have increased the dose of meropenem to 1 g IV every 8 hours. The patient in the last 1-2 weeks had 1-2 days of diarrhea that has cleared. She is having dysuria and does have urinary incontinence. She also has been very weak and somewhat ataxic. The change in antibiotics also will cover the patient's urinary tract infection due to Citrobacter. DISCUSSION: The patient tells me that in the past 1-2 weeks she has had increasing dyspnea. She occasionally coughs and there is infrequently some blood in her sputum. She also was found to have a low oxygen level in the blood. She was moved today to intensive care unit. Her chest x- ray shows worsening bilateral infiltrates. Sputum grew normal maris. Urine is growing Citrobacter. The patient's CBC shows that the white count is increasing to 16, 840, hemoglobin 11.5 and platelet count 275,000. Doppler study of the leg shows no deep venous thrombosis. Blood gases show a pH of 7.52, a PO2 of 64 and a pCO2 of 39. Creatinine is 1.1. GFR is 50. PAST MEDICAL HISTORY/REVIEW OF SYSTEMS: Eyes and ears: She denies any difficulty hearing or seeing. Neck: No stiffness. Respiratory: Please see present illness. Cardiovascular: No chest pain or palpitations. GI: Patient did have diarrhea a few days ago but it has cleared. She is not having any nausea or vomiting. Genitourinary: As mentioned above, she is having dysuria and urinary incontinence. Bones, joints, muscles: No joint pain or myalgias. Endocrine: Patient has hypothyroidism but not diabetes. Neurologic: No seizures, no motor or sensory loss. Integument: No rash. TAILING HAND HISTORY: She is a 2, para 2, AB 0. PREVIOUS HOSPITALIZATIONS AND OPERATIONS: She has had labor and deliveries, tonsillectomy, a lung biopsy, admissions for pneumonia, admissions for complications from chemotherapy, she also has had 2 strokes. MEDICAL DISEASES: Positive for lung cancer, stroke, hypertension and hypothyroidism. Hyperlipidemia and gastroesophageal reflux disease. INFECTIOUS DISEASE HISTORY: Positive for pneumonia and UTI. FAMILY HISTORY: Positive for hypertension, myocardial infarction, stroke and cancer. [place]IAL HISTORY[place] She stopped smoking cigarettes about 9 years ago and about 5 years ago stopped drinking alcoholic beverages. She does not abuse drugs. She is . She has a cat as a pet. She is allergic to penicillin and this occurred about 50 years ago. She did have urticaria however she has had Keflex in the past and tolerated it well and currently she has been receiving meropenem and tolerating it well. PRESENT ILLNESS: The patient's immunoglobulin levels, specifically IgG and IgA were normal. DRUG ALLERGIES: Penicillin as mentioned above, oxycodone and Darvocet. HOME MEDICATIONS: Include triamterene hydrochlorothiazide, Lipitor, Tessalon Perles, ProAir, Tylenol, Aggrenox, Benadryl, Plavix, Zyrtec, Mucinex, furosemide, Antivert, Ativan, Synthroid, Zanaflex, Spiriva, Zoloft, potassium, omeprazole and multivitamins. Physical ExaminationVital Signs: Temperature is 100.9 degrees, pulse 114, respirations 20, blood pressure 149/78, patient weighs 281 pounds. General: This is a morbidly obese elderly female. She is wearing oxygen now and seems slightly dyspneic. Head eyes, ears, nose , and Throat: No drainage noted from the nose or ears. There were no oral white patches. Neck : No meningismus. Thorax: Increased AP diameter of the chest. Lungs: Clear to auscultation. I heard some diminished breath sounds on the left side. Cardiovascular: Heart rate is irregular and rapid. Abdomen: Soft and not tender. Extremities: Both legs are edematous but not erythematous. Neurologic: Patient is awake. She can move her extremities. There is no tremor. Her memory as regarding her medical history was slightly reduced. Integument: No rash noted. Thank you for the consult. cc: MD TODD Claire
[2016-09-30] MEDS: MERREM 1 GM in NS 50 ML IV SCH ×2 (16:00→23:23)
--- NOTE | 2016-09-30 19:52 | PROGRESS NOTE ---
DATE: 09/30/2016 SUBJECTIVE: The patient developed respiratory status since yesterday and has been moved to the Intensive Care Unit. Chest x-ray has reported worsening bilateral infiltrates. She presently is receiving bronchodilator treatment with oxygen and denies shortness of breath presently. She describes tendency for feeling anxious at times. She has also had some palpitations. There has been no chest pain. OBJECTIVE: Blood pressure 136/84, heart rate 110. ECG monitor shows sinus rhythm with brief paroxysms of atrial fibrillation with rapid ventricular rate. Jugular venous distention cannot be appreciated. Auscultation of the chest reveals coarse breath sounds bilaterally with bibasilar crackles. Cardiac examination reveals a regular rate and rhythm without murmur or gallop. There is no evidence of edema. LABORATORY DATA: White blood cell count of 16.8, BUN 24, creatinine 1.1. IMPRESSION: 1. Acute hypoxemic respiratory failure. This has been multifactorial but patient's respiratory status has deteriorated with worsening bilateral infiltrates. With a rising white blood cell count, concern is raised regarding worsening bilateral pneumonitis. Diastolic heart failure is also playing a role. 2. Obstructive sleep apnea. 3. Morbid obesity. 4. Chronic obstructive pulmonary disease. 5. Previous cerebrovascular accident. 6. Urinary tract infection. 7. Chronic kidney disease. 8. Brief paroxysms of atrial fibrillation now manifest. 9. Hypertension. 10. Hyperlipidemia. 11. Previous small cell carcinoma treated with chemotherapy and radiation therapy approximately 5 years ago. 12. Previous negative coronary angiography in 2014. RECOMMENDATIONS: 1. Agree with aggressive parenteral antibiotic therapy for pneumonitis. 2. Continue to diurese with IV Lasix. 3. We will add low-dose Cardizem to blunt tendency for tachycardia with atrial fibrillation. 4. If persistent atrial fibrillation, consider increase in Lovenox 1 mg/kg subcutaneously q.12 hours. cc: Salomon Thurman MD
[2016-09-30] MEDS: VANCOMYCIN 2 GM in NS 500 ML IV SCH (20:38)
[2016-09-30] MEDS: LABETALOL IV PRN ×2 (20:38→21:26)
[2016-09-30] MEDS: LIPITOR PO SCH (20:39)
[2016-09-30] MEDS: CALTRATE 600 + D PO SCH (20:40)
[2016-10-01] MEDS: DUONEB (A & A) INH SCH ×6 (03:12→23:11)
[2016-10-01 04:50] LABS: ALLEN TEST YES; BE 11.4 mmoll (-3.0-3.0); BLOOD TYPE ARTERIAL; DRAW SITE R RADIAL; METHB 0.8 % (0.0-1.5); O2(CT) 14.3 mL/dL (15.0-23.0); PCO2(98.6) 46 mmHg (35-45); PO2(98.6) 59 mmHg (60-100); SAMPLE BLOOD; SAO2 94.6 % (95.0-100.0); THB 11.1 g/dL (11.5-17.4)
[2016-10-01 04:51] LABS: MODALITY BI PAP
[2016-10-01 05:30] LABS: HEMATOCRIT 34.3 % (37.0-47.0); HEMOGLOBIN 11.1 g/dL (12.0-16.0); MCH 30.3 PG (27-31); MCHC 32.4 g/dL (33-37); MCV 93.7 FL (81-99); MPV 10.8 FL (7.4-10.4); RBC 3.66 XMIL (4.2-5.4)
[2016-10-01 06:00] LABS: MAGNESIUM 1.9 mg/dL (1.5-2.7)
[2016-10-01 06:03] LABS: AGAP 16; BUN 26 mg/dL (8-22); CALCIUM 9.2 mg/dL (8.8-10.2); CHLORIDE 95 mmol/L (98-107); COSMO 285; POTASSIUM 3.5 mmol/L (3.5-5.1); SODIUM 139 mmol/L (136-145); TCO2 28 mmol/L (25-35)
[2016-10-01] MEDS: SYNTHROID PO SCH (06:40)
[2016-10-01] MEDS: MERREM 1 GM in NS 50 ML IV SCH ×2 (06:40→14:19)
[2016-10-01] MEDS: PRILOSEC PO SCH (06:40)
--- NOTE | 2016-10-01 07:08 | Diag Imaging Result Doc PS360 ---
EXAM: CHEST-1 VIEW HISTORY: SOB TECHNIQUE: AP portable at 0500 COMMENT: There is improvement in the alveolar opacification of the right lower lobe since the previous study of 09/30/2016. There continues to be pleural effusion on the left and some volume loss on the left suggesting atelectasis in the left lower lobe. This may be due to mucous plugging. IMPRESSION: Improved pulmonary edema versus pneumonia. Left lower lobe atelectasis. Left pleural effusion. Electronically signed by Pako Chow 10/01/2016 7:06 AM
[2016-10-01] MEDS: MUCOMYST 20% INH SCH ×2 (08:18→19:08)
[2016-10-01] MEDS: SPIRIVA INH SCH (08:18)
[2016-10-01] MEDS: DULERA 100 MCG/5 MCG INHALER INH SCH ×2 (08:19→19:27)
[2016-10-01] MEDS: TESSALON PO SCH ×3 (10:11→17:45)
[2016-10-01] MEDS: CARDIZEM PO SCH ×3 (10:12→17:45)
[2016-10-01] MEDS: PLAVIX PO SCH (10:12)
[2016-10-01] MEDS: ZYRTEC PO SCH (10:12)
[2016-10-01] MEDS: MEDROL PO SCH ×3 (10:12→21:39)
[2016-10-01] MEDS: LASIX IV SCH ×2 (10:12→21:39)
[2016-10-01] MEDS: ZOLOFT PO SCH (10:13)
[2016-10-01] MEDS: LOVENOX SUBQ SCH ×2 (10:13→21:40)
[2016-10-01] MEDS: CENTRUM SILVER PO SCH (10:14)
[2016-10-01] MEDS: MIRALAX PO SCH ×2 (10:14→21:40)
[2016-10-01] MEDS: TYLENOL PO PRN (14:18)
[2016-10-01] MEDS: AGGRENOX PO SCH (14:18)
[2016-10-01] MEDS ORDERED: LANOXIN IV ONE (17:37)
[2016-10-01] MEDS ORDERED: LANOXIN ONE (17:50)
--- NOTE | 2016-10-01 18:06 | PROGRESS NOTE ---
DATE: 10/01/2016 SUBJECTIVE: The patient states that she feels a lot better today. She states that she feels less short of breath. However, the patient is in atrial fibrillation with rapid ventricular response. OBJECTIVE: Vital Signs: Temperature 97 degrees, blood pressure 130/68, heart rate 126, respirations 14, O2 saturation 90% on 5 L nasal cannula. Input 1.6 L, output 4 L. General: This is a morbidly obese female, lying comfortably in bed, in no acute distress. Head: Normocephalic atraumatic. Heart: S1, S2. Normal. Irregularly irregular rate and rhythm. Lungs: Coarse breath sounds bilaterally. Mild expiratory wheezes. Abdomen: Positive bowel sounds. Soft, obese, nontender, nondistended. Extremities: 1+ edema. No cyanosis. No calf tenderness. Neurologic: The patient is alert and oriented x3. LABS: White blood cell count 14, hemoglobin 11, hematocrit 34, platelets 342, 000, sodium 139, potassium 3.5, chloride 95, CO2 28, BUN 26, creatinine 0.9. Glucose 139. Magnesium 1.9. Phosphorus 3.5, calcium 9.2. Chest x-ray shows improved pulmonary edema. ASSESSMENT AND PLAN: 1. Acute hypoxemic respiratory failure. Multifactorial. This is a combination of pneumonia and pulmonary edema. The chest x-ray today is improved and clinically the patient looks better. Continue on IV Lasix and broad-spectrum antibiotic coverage. 2. Pneumonia. Continue on broad-spectrum antibiotic coverage plus bronchodilator therapy. ID is following. 3. Acute on chronic CHF exacerbation. Continue on IV Lasix. We will monitor the patient's volume status closely. Continue on the fluid restriction. Cardiology is following. 4. Atrial fibrillation with rapid ventricular response. The patient is on p.o. Cardizem. We will give a dose of digoxin. Will await further recommendations from the director of recruiting. Will place the patient on full dose lovenox. 5. Hypothyroidism. Continue on Synthroid. 6. History of stroke. Continue on Plavix. 7. Morbid obesity. Aware. 8. Situational depression. Continue on Zoloft. 9. Anxiety disorder. Continue on p.r.n. Ativan. 10. Deep vein thrombosis prophylaxis. The patient is on lovenox. cc: MD TODD Loera
[2016-10-01] MEDS: VANCOMYCIN 2 GM in NS 500 ML IV SCH (21:39)
[2016-10-01] MEDS: CALTRATE 600 + D PO SCH (21:39)
[2016-10-01] MEDS: LIPITOR PO SCH (21:39)
[2016-10-01] MEDS: ATIVAN PO PRN (21:39)
[2016-10-02] MEDS: MERREM 1 GM in NS 50 ML IV SCH ×4 (00:28→23:27)
[2016-10-02] MEDS: DUONEB (A & A) INH SCH ×6 (03:13→23:04)
[2016-10-02 04:58] LABS: ALLEN TEST YES; BE 8.5 mmoll (-3.0-3.0); BLOOD TYPE ARTERIAL; DRAW SITE R RADIAL; METHB 1.1 % (0.0-1.5); O2(CT) 19.8 mL/dL (15.0-23.0); PCO2(98.6) 46 mmHg (35-45); PO2(98.6) 75 mmHg (60-100); SAMPLE BLOOD; SAO2 97.2 % (95.0-100.0); pH(98.6) 7.47 (7.35-7.45)
[2016-10-02 04:59] LABS: MODALITY BI PAP
[2016-10-02] MEDS: SYNTHROID PO SCH (07:00)
[2016-10-02] MEDS: PRILOSEC PO SCH (07:00)
--- NOTE | 2016-10-02 07:13 | Diag Imaging Result Doc PS360 ---
EXAM: CHEST-1 VIEW HISTORY: SOB TECHNIQUE: AP portable at 0500 COMMENT: Compared to the previous study of 10/01/2016 there has been some improvement in the dense alveolar opacity present previously in the right lower lobe. Volume loss and opacification in the left lung are essentially stable. IMPRESSION: Improved pulmonary edema. Electronically signed by Pako Chow 10/02/2016 7:10 AM
[2016-10-02] MEDS: MUCOMYST 20% INH SCH ×2 (07:30→19:01)
[2016-10-02] MEDS: SPIRIVA INH SCH (07:31)
[2016-10-02] MEDS: DULERA 100 MCG/5 MCG INHALER INH SCH ×2 (07:31→19:28)
[2016-10-02 08:42] LABS: CALCIUM 9.5 mg/dL (8.8-10.2); POTASSIUM 3.8 mmol/L (3.5-5.1)
[2016-10-02] MEDS: ZOLOFT PO SCH (09:09)
[2016-10-02] MEDS: ZYRTEC PO SCH (09:09)
[2016-10-02] MEDS: PLAVIX PO SCH (09:09)
[2016-10-02] MEDS: TESSALON PO SCH ×3 (09:10→19:58)
[2016-10-02] MEDS: CARDIZEM PO SCH ×3 (09:11→19:59)
[2016-10-02] MEDS: LOVENOX SUBQ SCH ×2 (09:11→19:59)
[2016-10-02] MEDS: LASIX IV SCH ×2 (09:11→19:58)
[2016-10-02] MEDS: AGGRENOX PO SCH (09:11)
[2016-10-02] MEDS: MEDROL PO SCH ×2 (09:12→19:59)
[2016-10-02] MEDS: MIRALAX PO SCH ×2 (09:58→19:59)
[2016-10-02] MEDS: CENTRUM SILVER PO SCH (09:58)
[2016-10-02] MEDS: CARDIZEM 100 MG/NS 100 MG/100 ML IVPB IV SCH ×2 (10:56→20:05)
[2016-10-02] MEDS: ATIVAN PO PRN ×2 (12:45→19:59)
--- NOTE | 2016-10-02 13:59 | PROGRESS NOTE ---
DATE: 10/02/2016 CHIEF COMPLAINT: Irregular heartbeat and dyspnea. SUBJECTIVE: Ms. Alvarenga complains of some dyspnea and appears to coincide with her heart rate going fast. Her heart rate has been fluctuating from 90 to 140. She has been going into atrial fibrillation. She denies having any pain in the chest. She says her legs are not as swollen as they were. OBJECTIVE: Her blood pressure is 112/70, temperature 97.8, pulse has come down to about 95. She is having sinus rhythm with PACs. Respirations are 18. She is awake, obese, in no distress. Body mass index is 45. Chest shows some inspiratory stridor and wheezing, mostly on the left lung area, less in the right lung area. Heart sounds are slightly irregular. No gallop or murmur is noted. The abdomen is nontender, obese. Extremities showed good pulses. No peripheral edema. Neurologic: Follows commands, moves all 4 extremities. DIAGNOSTIC DATA: Her sodium is 142, potassium 3.8, BUN is 31, creatinine 1.0. Her chloride is 97, carbon dioxide is 30. IMPRESSION: 1. The patient has paroxysmal atrial fibrillation. She is going back and forth in rapid atrial fibrillation. 2. Respiratory failure with evidence of pulmonary edema. She appears to have diastolic heart failure. Reportedly she has had no coronary artery disease. 3. Hypertension. 4. Morbid obesity. 5. Obstructive sleep apnea. 6. History of small cell lung cancer December 2011 treated with radiation/ chemotherapy. RECOMMENDATIONS: At this point in time, I would suggest to keep her on IV Cardizem and see how she does over the next few hours. We may up titrate her oral diltiazem to 60 mg every 6 hours and then back down on the IV Cardizem depending on her clinical progression. Because of the wheezing, she may not be a good candidate for beta blockade. The reason for her pulmonary edema is unclear given her normal LV systolic function/normal coronary arteries by cath. The lingering question is whether or not her pulmonary edema could be a symptom of impaired lymphatic drainage from tumoral invasion of the lymphatic system or relate perhaps to significant distortion of her lymphatic drainage/vascular drainage of the lung from scarring related to extensive radiation. A right and left heart catheterization just to measure pressures may be helpful. Also consider follow up PET scan and discussion with pulmonary /oncology consultants. Further advice will depend on her clinical course. Thank you again for the opportunity to participate in her evaluation. cc: Rush Vega MD MTDD
--- NOTE | 2016-10-02 15:37 | PROGRESS NOTE ---
DATE: 10/02/2016 SUBJECTIVE: The patient is resting comfortably in bed. She states that she tends to get more short of breath with activity and she also complains of palpitations. OBJECTIVE: Vital Signs: Temperature 97.8 degrees, blood pressure 112/70, heart rate 141, respirations 18, O2 saturations 95% on 4 L nasal cannula. Intake/output: Intake 2 L. Output 3.2 L. General: This is a morbidly obese female, lying in bed, in no acute distress. Head: Normocephalic, atraumatic. Heart: S1, S2. Normal. Irregularly irregular rhythm. Lungs: Coarse breath sounds bilaterally. No crackles. No rales. Abdomen: Positive bowel sounds. Soft, obese, nontender, nondistended. Extremities: +1 edema. No cyanosis. No calf tenderness. Neurologic: The patient is alert and oriented x3. LABORATORY AND IMAGING: Sodium 142, potassium 3.8, chloride 97, CO2 30, BUN 31, creatinine 1, glucose 148. Chest x-ray on shows improved pulmonary edema. ASSESSMENT AND PLAN: 1. Acute hypoxemic respiratory failure. Improved. We will continue on IV diuretic therapy and antibiotics. Continue with bronchodilator therapy. 2. Pneumonia. Continue on broad-spectrum antibiotic coverage as directed by Dr. Hernandez. 3. Atrial fibrillation with rapid ventricular response. The patient has been started on a Cardizem drip. Further titration of the patient's cardiac medications as per the rn diabetes. The patient is on full-dose Lovenox. 4. Acute on chronic diastolic congestive heart failure exacerbation. Continue to diurese with Lasix. We will monitor the patient's volume status closely. The patient is on a fluid restriction. 5. Morbid obesity. Aware. 6. Hypothyroidism. Continue on Synthroid. 7. History of stroke. Continue on Plavix. 8. Situational depression. Continue on Zoloft. 9. Anxiety disorder. Continue on p.r.n. Ativan. 10. Deep vein thrombosis prophylaxis. The patient is on full-dose Lovenox. cc: Arlene Bhatti MD
[2016-10-02] MEDS: CALTRATE 600 + D PO SCH (19:59)
[2016-10-02] MEDS: LIPITOR PO SCH (19:59)
[2016-10-02] MEDS: VANCOMYCIN 2 GM in NS 500 ML IV SCH (20:21)
[2016-10-02] MEDS ORDERED: ZOFRAN ODT PO PRN (23:50)
[2016-10-02] MEDS ORDERED: NORCO-5 PO PRN (23:50)
[2016-10-03] MEDS: DUONEB (A & A) INH SCH ×6 (03:36→23:40)
[2016-10-03 04:32] LABS: ALLEN TEST YES; BLOOD TYPE ARTERIAL; DRAW SITE R RADIAL; METHB 0.6 % (0.0-1.5); O2(CT) 15.3 mL/dL (15.0-23.0); PO2(98.6) 60 mmHg (60-100); SAMPLE BLOOD; SAO2 93.8 % (95.0-100.0); THB 11.9 g/dL (11.5-17.4); pH(98.6) 7.44 (7.35-7.45)
[2016-10-03 04:33] LABS: MODALITY BI PAP
[2016-10-03 04:34] LABS: PCO2(98.6) 51 mmHg (35-45)
[2016-10-03] MEDS: MERREM 1 GM in NS 50 ML IV SCH ×4 (05:31→22:44)
[2016-10-03] MEDS: CARDIZEM PO SCH ×3 (05:31→19:52)
[2016-10-03] MEDS: SYNTHROID PO SCH ×2 (05:31→06:32)
[2016-10-03] MEDS: PRILOSEC PO SCH ×2 (05:31→06:31)
[2016-10-03 05:36] LABS: MANUAL DIFF NEEDED? NO
[2016-10-03] MEDS ORDERED: CARDIZEM IV SCH (05:45)
[2016-10-03] MEDS ORDERED: NS IV SCH (05:45)
[2016-10-03 06:05] LABS: CALCIUM 8.9 mg/dL (8.8-10.2); MAGNESIUM 2.1 mg/dL (1.5-2.7); POTASSIUM 3.3 mmol/L (3.5-5.1)
[2016-10-03] MEDS: CARDIZEM 125/NS 125 MG/125 ML IVPB IV SCH ×2 (06:07→17:32)
[2016-10-03 06:23] LABS: BASO% 0.3 % (0.0-0.8); EOS% 2.3 % (0.0-10.0); HEMATOCRIT 34.6 % (37.0-47.0); HEMOGLOBIN 11.2 g/dL (12.0-16.0); IMM GRAN# 0.13 X1000 (0.0-0.04); IMM GRAN% 0.7 % (0.0-0.5); LYMPH# 1.19 X1000 (1.2-3.4); LYMPH% 6.7 % (20.5-51.1); MCH 30.4 PG (27-31); MCHC 32.4 g/dL (33-37); MCV 93.8 FL (81-99); MONO# 1.16 X1000 (0.11-0.59); MONO% 6.5 % (1.7-9.3); NEUT% 83.5 % (42.2-75.2); PLT 338 X1000 (130-400); RBC 3.69 XMIL (4.2-5.4)
--- NOTE | 2016-10-03 06:31 | EKG Report ---
Test Performed on : 10/01/2016 09:58:42 AM Test Reason : tachycardia Blood Pressure : / mmHG Vent. Rate : 125 BPM Atrial Rate : 129 BPM P-R Int : 000 ms QRS Dur : 106 ms QT Int : 310 ms P-R-T Axes : 000 -43 100 degrees QTc Int : 447 ms Atrial fibrillation. with rapid ventricular response. Left axis deviation Minimal voltage criteria for LVH, may be normal variant Cannot rule out Anterior infarct (cited on or before 16-JUL-2016) ST \T\ T wave abnormality, consider lateral ischemia Abnormal ECG When compared with ECG of 28-SEP-2016 05:53, (Unconfirmed) Atrial fibrillation. has replaced Sinus rhythm. T wave amplitude has decreased in V2 ST more depressed in high-lateral leads 1 and AVL Confirmed by Joey Castano DO ([id number]) on 10/04/2016 7:20:54 AM
--- NOTE | 2016-10-03 07:19 | Diag Imaging Result Doc PS360 ---
EXAM: CHEST-1 VIEW HISTORY: SOB TECHNIQUE: Portable COMPARISON: 10/02/2016 FINDINGS: There are dense infiltrates in the lung bases. There are smaller infiltrates in the mid lungs with mild vascular distention. A small to moderate-sized left-sided pleural effusion remains. There is atelectasis in the left base. The heart is not enlarged. IMPRESSION: Mild interval worsening. Electronically signed by Dylon Fajardo 10/03/2016 7:17 AM
[2016-10-03] MEDS: MUCOMYST 20% INH SCH ×3 (07:59→19:40)
[2016-10-03] MEDS: DULERA 100 MCG/5 MCG INHALER INH SCH ×3 (08:00→19:40)
[2016-10-03] MEDS: SPIRIVA INH SCH (08:00)
[2016-10-03] MEDS: LASIX IV SCH ×2 (08:48→19:46)
[2016-10-03] MEDS: CENTRUM SILVER PO SCH (08:48)
[2016-10-03] MEDS: ZOLOFT PO SCH (08:48)
[2016-10-03] MEDS: MEDROL PO SCH (08:49)
[2016-10-03] MEDS: LOVENOX SUBQ SCH ×2 (08:49→22:48)
[2016-10-03] MEDS: ZYRTEC PO SCH (08:49)
[2016-10-03] MEDS: MIRALAX PO SCH ×3 (08:49→23:30)
[2016-10-03] MEDS: TESSALON PO SCH ×3 (08:49→17:26)
[2016-10-03] MEDS: PLAVIX PO SCH (08:49)
[2016-10-03] MEDS: AGGRENOX PO SCH (08:50)
--- NOTE | 2016-10-03 12:51 | PROGRESS NOTE ---
DATE: 10/03/2016 SUBJECTIVE: The patient is still short of breath. She still has dryness of the mouth. OBJECTIVE: Vital Signs: Blood pressure 130/69, heart rate 90 respiratory rate 23, temperature 99.1 degrees, 96% on 50%. Cardiovascular: Regular rate and rhythm. Pulmonary: Bilateral breath sounds. Diffuse rhonchi and wheezing. Gastrointestinal: Abdomen soft, nontender, nondistended. Bowel sounds are positive. Extremities: No clubbing or cyanosis on extremity exam. Lymphatic: No peripheral edema. LABORATORY DATA: White count 17, hemoglobin and hematocrit 11 and 34, platelets 338,000; pH 7.44, pCO2 51, PaO2 60. Potassium 3.3. Creatinine is 1, BUN 32. Chest x-ray, reviewed by myself shows bilateral infiltrates interstitial right lower lobe infiltrates which looked more like consolidation and left lower lobe, cardiac silhouette is difficult to make out. Radiology read is worsening, a slight bit of worsening since previous films. PROBLEM LIST: 1. Acute hypoxic respiratory failure secondary to pneumonia and congestive heart failure exacerbation. We will continue diuretic therapy, antibiotic therapy, bronchial dilator therapy. 2. Pneumonia right lower, lobe left lower lobe on broad-spectrum antibiotics. On Merrem, this is day 3 and vancomycin day 5 and we will follow. Cultures, urine culture has grown out Citrobacter which is sensitive to amikacin, cephalosporins, Zosyn, presumably to carbapenem. 3. Congestive heart failure exacerbation. Continue diuresis. She is on Lasix q.12h. 4. Atrial fibrillation with rapid ventricular response. She is now converted. Cardiology is managing. I think they are transitioning from IV to p.o. She is on full anticoagulation. 5. Morbid obesity. Aware. Continue medications. 6. Hyperthyroidism is stable on current dose of Synthroid. 7. Disposition pending improvement in clinical status. She is still requiring a significant amount of oxygen and is still very really fairly bronchospastic so we will continue to monitor. cc: Justin Montelongo MD
[2016-10-03] MEDS: TYLENOL PO PRN (14:09)
--- NOTE | 2016-10-03 17:07 | PROGRESS NOTE ---
DATE: 10/03/2016 PRESENT ILLNESS: The patient has pneumonia. Her latest chest x-ray shows worse infiltrates. The patient has a Citrobacter urinary tract infection which is symptomatic. MEDICATIONS: Patient is on day 3 of treatment with both vancomycin and meropenem. PHYSICAL EXAMINATION: Vital Signs: Temperature is 99.1 degrees, pulse 90, respirations 20, blood pressure 130/69. General: This is an obese, elderly female who coughed occasionally during the exam. She did not bring up any sputum however. Abdomen: Soft and nontender. Legs: Less edematous. LAB AND X-RAY: Chest x-ray shows worsening infiltrates. Vancomycin level is 15.8. Creatinine is 1. GFR is 55. CBC shows a white count of 17,760, hemoglobin 11.2, and platelet count 338,000. Blood gases show a pH of 7.44, a PO2 of 60, pCO2 of 51. ASSESSMENT AND PLAN: Patient has pneumonia. The plan will be to continue with the current medications. Her white count is higher and her chest x-ray is worse but some of this may be that she is on some steroids, also she may have an element of pulmonary venous congestion as well. My plan for now is to continue treating with the vancomycin and meropenem. COMORBIDITIES: Include she has had prior lung cancer, she has had a stroke, hypertension, hypothyroidism, gastroesophageal reflux disease. Patient has a history of smoking cigarettes and drinking alcoholic beverages but she has stopped that for at least 5 years and stopping alcohol and about 9 years stopping smoking cigarettes. cc: Robert Hernandez MD
[2016-10-03] MEDS ORDERED: KLOR-CON PO ONE (19:12)
--- NOTE | 2016-10-03 19:47 | PROGRESS NOTE ---
DATE: 10/03/2016 SUBJECTIVE: Patient continues on supplemental oxygen per mask. She denies shortness of breath or chest pain. She has had some cough. OBJECTIVE: Vital Signs: Blood pressure 126/70, heart rate 89 and regular with ECG monitor showing sinus rhythm. Neck: There is no discernible jugular distention. Chest: Auscultation of the chest reveals a few expiratory wheezes throughout. Cardiac Exam: Reveals a regular rate and rhythm without appreciable murmur or gallop. There is no evidence of peripheral edema. LABORATORY DATA: Includes a white blood cell count of 17.8, hematocrit 34.6. BUN 32, creatinine 1.0, potassium 3.3. IMPRESSIONS: 1. Acute hypoxemic respiratory failure. This has been multifactorial but patient's respiratory status has deteriorated with worsening bilateral infiltrates accompanied by rising white blood cell count, suggesting worsening bilateral pneumonitis. Diastolic heart failure is also playing a role as well as tendency for cor pulmonale. 2. Obstructive sleep apnea. 3. Morbid obesity. 4. Chronic obstructive pulmonary disease. 5. Previous cerebrovascular accident. 6. Paroxysmal atrial fibrillation. Patient back in sinus rhythm. 7. Hypertension. 8. Hyperlipidemia. 9. Chronic kidney disease. 10. Previous small cell carcinoma, treated with chemotherapy and radiation therapy approximately 5 years ago. 11. Previous negative coronary angiography in 2015. RECOMMENDATIONS: 1. Continue to diurese gently with Lasix. 2. Supplement potassium. 3. Discontinue IV Cardizem. Order and continue oral Cardizem. cc: Salomon Thurman MD
[2016-10-03] MEDS: CALTRATE 600 + D PO SCH (19:51)
[2016-10-03] MEDS: LIPITOR PO SCH (19:51)
[2016-10-03] MEDS: VANCOMYCIN 2 GM in NS 500 ML IV SCH (19:56)
[2016-10-03] MEDS: ATIVAN PO PRN (23:23)
[2016-10-04] MEDS: DUONEB (A & A) INH SCH ×6 (03:20→23:01)
[2016-10-04] MEDS: CARDIZEM PO SCH ×4 (03:52→19:59)
[2016-10-04 04:29] LABS: ALLEN TEST YES; BLOOD TYPE ARTERIAL; DRAW SITE R RADIAL; METHB 0.7 % (0.0-1.5); O2(CT) 14.3 mL/dL (15.0-23.0); PCO2(98.6) 39 mmHg (35-45); PO2(98.6) 61 mmHg (60-100); SAMPLE BLOOD; SAO2 96.2 % (95.0-100.0); THB 10.9 g/dL (11.5-17.4); pH(98.6) 7.54 (7.35-7.45)
[2016-10-04 04:30] LABS: MODALITY BI PAP
[2016-10-04] MEDS: CALTRATE 600 + D PO SCH ×2 (04:31→19:59)
[2016-10-04] MEDS: LIPITOR PO SCH ×2 (04:32→19:59)
[2016-10-04 04:38] LABS: MANUAL DIFF NEEDED? NO
[2016-10-04 04:43] LABS: BASO% 0.2 % (0.0-0.8); EOS# 0.21 X1000 (0.0-0.7); EOS% 1.3 % (0.0-10.0); HEMATOCRIT 32.5 % (37.0-47.0); HEMOGLOBIN 10.6 g/dL (12.0-16.0); IMM GRAN# 0.12 X1000 (0.0-0.04); IMM GRAN% 0.7 % (0.0-0.5); LYMPH# 0.93 X1000 (1.2-3.4); LYMPH% 5.6 % (20.5-51.1); MCH 30.3 PG (27-31); MCHC 32.6 g/dL (33-37); MCV 92.9 FL (81-99); MONO% 7.8 % (1.7-9.3); MPV 10.1 FL (7.4-10.4); NEUT% 84.4 % (42.2-75.2); PLT 320 X1000 (130-400)
[2016-10-04] MEDS: TYLENOL PO PRN (04:52)
[2016-10-04 05:03] LABS: AGAP 14; BUN 33 mg/dL (8-22); CALCIUM 9.4 mg/dL (8.8-10.2); CHLORIDE 95 mmol/L (98-107); COSMO 284; MAGNESIUM 2.1 mg/dL (1.5-2.7); POTASSIUM 3.9 mmol/L (3.5-5.1); SODIUM 139 mmol/L (136-145); TCO2 30 mmol/L (25-35)
[2016-10-04] MEDS: MERREM 1 GM in NS 50 ML IV SCH ×2 (06:04→14:56)
[2016-10-04] MEDS: SYNTHROID PO SCH (06:04)
[2016-10-04] MEDS: PRILOSEC PO SCH (06:04)
--- NOTE | 2016-10-04 07:32 | Diag Imaging Result Doc PS360 ---
CHEST-1 VIEW - 10/04/2016 INDICATION: SOB TECHNIQUE: COMPARISON: 10/03/2016 FINDINGS: Stable cardiomegaly. There is worsening in extensive, mixed bilateral infiltrates right greater than left. The worsening is most notable at the right upper lobe. Stable retrocardiac consolidation and possible effusion. IMPRESSION: Worsening infiltrates. Compatible with pneumonia, aspiration, or drug reactions. Electronically signed by Bry Taylor 10/04/2016 7:30 AM
[2016-10-04] MEDS: SPIRIVA INH SCH (07:54)
[2016-10-04] MEDS: DULERA 100 MCG/5 MCG INHALER INH SCH ×2 (07:55→19:10)
[2016-10-04] MEDS: TESSALON PO SCH ×3 (08:00→16:41)
[2016-10-04] MEDS: LOVENOX SUBQ SCH ×2 (08:00→19:59)
[2016-10-04] MEDS: ZOLOFT PO SCH (08:00)
[2016-10-04] MEDS: CENTRUM SILVER PO SCH (08:00)
[2016-10-04] MEDS: AGGRENOX PO SCH (08:01)
[2016-10-04] MEDS: ZYRTEC PO SCH (08:01)
[2016-10-04] MEDS: PLAVIX PO SCH (08:01)
[2016-10-04] MEDS: LASIX IV SCH ×2 (08:01→20:00)
[2016-10-04] MEDS: MIRALAX PO SCH ×2 (08:01→22:16)
--- NOTE | 2016-10-04 08:49 | PROGRESS NOTE ---
DATE: 10/04/2016 HISTORY OF PRESENT ILLNESS: She is a patient of Dr. Eris Chisholm, Dr. Alcaraz, Dr. Smith, and Dr. Nicole Quintero. She came in complaining her legs had been swelling and had been feeling short of breath. She is a 65-year-old with a history of morbid obesity, small cell lung carcinoma, status post chemotherapy and radiation, history of CVA, COPD, hypothyroidism. She was sent to the ER by Dr. Alcaraz. The patient states that she went to his office and was noticed to have 70% on room air. The patient over the last 7 days had increased swelling of her feet, increasing shortness of breath at rest and worse on exertion. On arrival to the ER, the patient was noted to have O2 saturations at 89%, I think some episodes of coughing. She denied any fever. PAST MEDICAL HISTORY: 1. Small cell lung carcinoma, status post chemotherapy and radiation. 2. COPD. 3. History CVA. 4. Depression. 5. Hypertension. 6. Obstructive sleep apnea. 7. Morbid obesity. 8. Hypothyroidism. PAST SURGICAL HISTORY: She had an adenoidectomy, port placement, tonsillectomy, lung biopsy in 2011. REASON FOR ADMISSION: She was admitted with bilateral lower lobe pneumonia. HOSPITAL COURSE TO DATE: CT of the chest showed multifocal patchy infiltrates, small pericardial effusion. She was put on broad-spectrum antibiotics. Cultures were obtained. The patient states she is breathing better. She is complaining of left shoulder pain. Chest x-ray this morning showed worsening infiltrates compatible with pneumonia, aspiration or drug reaction. There was worsening in extensive mixed bilateral infiltrates, right greater than left, worsening mostly notable in the right upper lobe; stable retrocardiac consolidation and possible effusion. She is complaining of left shoulder pain I believe. OBJECTIVE: Vital Signs: Temperature 98.1 degrees, pulse 90, respirations 20, blood pressure 130/80. Lungs: Clear in all lung crabtree. Cardiovascular: Regular rhythm and rate without murmur or S3. Abdomen: Soft. Skin: Warm and dry. Urine Output: Almost 7 liters. LABORATORY DATA: White count 16,720, hematocrit 32, platelet count 320,000. Sodium 139, potassium 3.9, chloride 95, BUN 32, creatinine 0.8. ASSESSMENT: 1. Acute hypoxemic respiratory failure, multifactor, but the patient's respiratory status had deteriorated with bilateral infiltrates, rising white blood cell count, worsening bilateral pneumonia. 2. Diastolic left ventricular dysfunction, playing a role in tendency for cor pulmonale and pulmonary venous hypertension. 3. Obstructive sleep apnea. 4. Morbid obesity. 5. Chronic obstructive pulmonary disease. 6. History of cerebrovascular accident. 7. Paroxysmal atrial fibrillation. The patient back is back in sinus rhythm. 8. Hypertension. 9. Hyperlipidemia. 10. Chronic kidney disease. 11. Previous small cell carcinoma treated with chemotherapy and radiation treatment approximately 5 years ago. 12. Previously negative coronary angiogram in 2015. PLAN: Diuresing generally with Lasix. She is on intravenous Cardizem. Continue present antibiotics of vancomycin and meropenem. Chest x-ray showed worsening infiltrates. She had a Citrobacter urinary tract infection, which was symptomatic. cc: Magdy Dueñas MD
[2016-10-04] MEDS: MUCOMYST 20% INH SCH ×3 (09:00→19:08)
[2016-10-04] MEDS ORDERED: KENALOG-40 IM ONE (09:02)
[2016-10-04] MEDS ORDERED: XYLOCAINE 1% INJ ONE (16:52)
--- NOTE | 2016-10-04 19:37 | PROGRESS NOTE ---
DATE: 10/04/2016 PRESENT ILLNESS: The patient has a bilateral pneumonia which on x-ray is getting worse. The patient also has a symptomatic Citrobacter urinary tract infection. MEDICATIONS: This is day 4 of treatment with vancomycin and meropenem. PHYSICAL EXAMINATION: Vital Signs: Temperature is 99.1 degrees, pulse 90, respirations 24, blood pressure 99/78. General: This is an obese, elderly female. She is wearing a BiPAP mask and she seems dyspneic even at rest. Lungs: Clear to auscultation. Cardiovascular: Regular heart rate. Abdomen: Soft and nontender. Neurologic: Patient is awake. She can move her extremities. LABORATORY AND X-RAY: Chest x-ray shows worse infiltrates. CBC shows a white count of 16,720, hemoglobin 10.6, and platelet count 320,000. Urine culture grew Citrobacter. Chest x-ray shows worsening infiltrates. ASSESSMENT AND PLAN: 1. Patient has pneumonia and urinary tract infection. I plan to continue vancomycin and meropenem and I have added Levaquin. I have also ordered a Legionella urinary antigen. 2. The patient's comorbidities include lung cancer, stroke, hypertension, gastroesophageal reflux disease, cigarette smoking, consumption of alcohol which she stopped 5 years ago. The patient stopped smoking 9 years ago. cc: Robert Hernandez MD
[2016-10-04] MEDS: ATIVAN PO PRN (19:58)
[2016-10-04] MEDS: LEVAQUIN 500 MG/D5W 500 MG/100 ML IVPB IV SCH (19:59)
[2016-10-04] MEDS: VANCOMYCIN 2 GM in NS 500 ML IV SCH (21:18)
[2016-10-05] MEDS: MERREM 1 GM in NS 50 ML IV SCH ×4 (00:04→23:15)
[2016-10-05] MEDS: DUONEB (A & A) INH SCH ×6 (03:18→23:05)
[2016-10-05] MEDS: ATIVAN PO PRN (04:25)
[2016-10-05] MEDS: CARDIZEM PO SCH ×3 (04:25→20:25)
[2016-10-05 04:36] LABS: ALLEN TEST YES; BE 5.4 mmoll (-3.0-3.0); BLOOD TYPE ARTERIAL; DRAW SITE R RADIAL; METHB 1.1 % (0.0-1.5); O2(CT) 22.5 mL/dL (15.0-23.0); PCO2(98.6) 38 mmHg (35-45); PO2(98.6) 93 mmHg (60-100); SAMPLE BLOOD; SRATE 8 BPM; THB 16.8 g/dL (11.5-17.4); pH(98.6) 7.49 (7.35-7.45)
[2016-10-05 04:37] LABS: MODALITY BI PAP
--- NOTE | 2016-10-05 07:54 | Diag Imaging Result Doc PS360 ---
EXAM: CHEST-1 VIEW INDICATION: SOB TECHNIQUE: One view COMPARISON: 10/04/2016 FINDINGS: Extensive bilateral interstitial and airspace infiltrates, worse on the right, are stable. No definite new consolidation is appreciated. Cardiac silhouette is stable. IMPRESSION: Stable chest. Electronically signed by Nilesh Flynn 10/05/2016 7:51 AM
[2016-10-05] MEDS: MUCOMYST 20% INH SCH ×3 (08:14→19:11)
[2016-10-05] MEDS: DULERA 100 MCG/5 MCG INHALER INH SCH ×2 (08:15→19:12)
--- NOTE | 2016-10-05 08:58 | PROGRESS NOTE ---
DATE: 10/05/2016 SUBJECTIVE: Her shoulder has felt much better. Had a pretty good night. Breathing is better. OBJECTIVE: Vital Signs: Temperature 97, pulse 90, respirations 27, blood pressure 103/83. Lungs: Clear anterolateral. She is on BiPAP. Cardiovascular: Regular rhythm and rate without murmur or S3. Abdomen: Soft. Skin: Warm and dry. URINE OUTPUT: Over 4, almost 5 L. LAB: Reviewed from yesterday. White count 16,720, hematocrit 32, platelet count 320,000. Chemistry: Sodium 139, potassium 3.9, chloride 95, BUN 33, creatinine 0.8. Phosphorus was 2.6, which is a little low. Chest x-ray from this morning stable chest. Extensive bilateral interstitial and airspace infiltrates, worse on the right, but stable. ASSESSMENT AND PLAN: 1. Patient with bilateral pneumonia, symptomatic. 2. Citrobacter urinary tract infection. Patient on vancomycin and meropenem. 3. Respiratory failure on BiPAP. Air and gas exchange seemed to be improving a little bit. 4. Lung cancer. 5. Hypertension. 6. History of cerebrovascular accident. 7. Gastroesophageal reflux disease. 8. Tobacco use. 9. Distant history of alcohol use. Quit 5 years ago. Review of orders. I do not see any change at this point. Note that I gave her an injection in her right shoulder of 80 mg Kenalog and 2 mL lidocaine. The shoulder feels better. Reviewed her medications. Because her sugars are dipping down, I will put her on D5 normal saline and we will run at 85 mL an hour. Urine output looks good. Looking back, she had an echocardiogram back in 09/28/2016 and she had normal to hyperdynamic function with ejection fraction of 70%, so should be able to handle the volume. cc: Magdy Dueñas MD
[2016-10-05] MEDS: LASIX IV SCH ×2 (09:08→19:46)
[2016-10-05] MEDS: SYNTHROID PO SCH (09:08)
[2016-10-05] MEDS: LOVENOX SUBQ SCH ×2 (09:08→20:25)
[2016-10-05] MEDS: PRILOSEC PO SCH (09:08)
[2016-10-05] MEDS: SOLU-MEDROL IV SCH ×2 (09:09→16:31)
[2016-10-05] MEDS: AGGRENOX PO SCH (09:09)
[2016-10-05] MEDS: PLAVIX PO SCH (09:09)
[2016-10-05] MEDS: CENTRUM SILVER PO SCH (09:09)
[2016-10-05] MEDS: FLONASE NAS SCH ×2 (09:09→20:31)
[2016-10-05] MEDS: LABETALOL IV PRN (09:09)
[2016-10-05] MEDS: ZOLOFT PO SCH (09:10)
[2016-10-05] MEDS: MIRALAX PO SCH ×2 (09:10→20:39)
[2016-10-05] MEDS: ZYRTEC PO SCH (09:10)
[2016-10-05] MEDS: TESSALON PO SCH ×3 (09:10→16:32)
[2016-10-05 09:42] LABS: HEMATOCRIT 31.5 % (37.0-47.0); HEMOGLOBIN 10.3 g/dL (12.0-16.0); MCH 30.4 PG (27-31); MCHC 32.7 g/dL (33-37); MCV 92.9 FL (81-99); MPV 9.8 FL (7.4-10.4); RBC 3.39 XMIL (4.2-5.4)
[2016-10-05 10:38] LABS: CALCIUM 8.9 mg/dL (8.8-10.2); POTASSIUM 3.9 mmol/L (3.5-5.1)
[2016-10-05] MEDS: LEVAQUIN 500 MG/D5W 500 MG/100 ML IVPB IV SCH (18:41)
--- NOTE | 2016-10-05 18:48 | PROGRESS NOTE ---
DATE: 10/05/2016 PRESENT ILLNESS: The patient has bilateral pneumonia and a symptomatic Citrobacter urinary tract infection. MEDICATIONS: The patient has been on vancomycin and meropenem now for 5 days. PHYSICAL EXAMINATION: Vital Signs: Temperature is 97.6 degrees, pulse 85, respirations 19, blood pressure 121/63. General: This is an obese, ill-appearing, elderly female. She currently is on a BiPAP mask. Lungs: Clear to auscultation. Cardiovascular: The heart rate was regular. Abdomen: Soft and nontender. Neurologic: The patient is lethargic. LABORATORY AND X-RAYS: Chest x-ray shows bilateral infiltrates. Creatinine is 1, GFR is 55. Blood gases show a pH of 7.49, PO2 of 93, and a pCO2 of 38. [place] [address], hemoglobin 10.3, and platelet count is 338,000. ASSESSMENT AND PLAN: The patient has pneumonia and urinary tract infection. I plan to continue vancomycin, meropenem and Levaquin. A Legionella urinary antigen has been ordered but I do not have the results back yet. COMORBIDITIES: Include lung cancer, stroke, gastroesophageal reflux disease and a prior history of cigarette smoking. cc: Robert Hernandez MD
[2016-10-05] MEDS: VANCOMYCIN 2 GM in NS 500 ML IV SCH (20:25)
[2016-10-05] MEDS: CALTRATE 600 + D PO SCH (20:37)
[2016-10-05] MEDS: LIPITOR PO SCH (20:38)
[2016-10-06] MEDS: SOLU-MEDROL IV SCH ×3 (00:10→17:20)
[2016-10-06] MEDS: DUONEB (A & A) INH SCH ×6 (03:09→23:00)
[2016-10-06] MEDS: CARDIZEM PO SCH ×3 (04:48→20:03)
[2016-10-06 05:00] LABS: ALLEN TEST YES; BLOOD TYPE ARTERIAL; DRAW SITE R RADIAL; O2(CT) 24.9 mL/dL (15.0-23.0); PCO2(98.6) 45 mmHg (35-45); PO2(98.6) 124 mmHg (60-100); SAMPLE BLOOD; SAO2 99.5 % (95.0-100.0); SRATE 10 BPM; THB 18.2 g/dL (11.5-17.4); pH(98.6) 7.41 (7.35-7.45)
[2016-10-06 05:01] LABS: MODALITY BI PAP
[2016-10-06] MEDS: SPIRIVA INH SCH ×2 (05:56→08:24)
[2016-10-06] MEDS: PRILOSEC PO SCH (05:59)
[2016-10-06] MEDS: SYNTHROID PO SCH (06:00)
[2016-10-06] MEDS: MERREM 1 GM in NS 50 ML IV SCH ×3 (06:03→23:20)
--- NOTE | 2016-10-06 07:23 | Diag Imaging Result Doc PS360 ---
EXAM: CHEST-1 VIEW HISTORY: SOB TECHNIQUE: AP portable chest at 0500 COMMENT: There is alveolar opacity bilaterally particularly on the right side. This has improved slightly since the previous examination of 10/05/2016 with less obvious air bronchograms. IMPRESSION: Pulmonary edema plus minus pneumonia, slightly improved. Electronically signed by Pako Chow 10/06/2016 7:21 AM
[2016-10-06] MEDS: MUCOMYST 20% INH SCH ×3 (08:23→18:57)
[2016-10-06] MEDS: DULERA 100 MCG/5 MCG INHALER INH SCH ×2 (08:24→18:57)
[2016-10-06] MEDS: CENTRUM SILVER PO SCH (08:28)
[2016-10-06] MEDS: ZOLOFT PO SCH (08:28)
[2016-10-06] MEDS: MIRALAX PO SCH ×2 (08:28→20:02)
[2016-10-06] MEDS: LASIX IV SCH ×2 (08:28→20:02)
[2016-10-06] MEDS: TESSALON PO SCH ×3 (08:28→17:41)
[2016-10-06] MEDS: AGGRENOX PO SCH (08:28)
[2016-10-06] MEDS: PLAVIX PO SCH (08:29)
[2016-10-06] MEDS: LOVENOX SUBQ SCH ×2 (08:29→20:33)
[2016-10-06] MEDS: FLONASE NAS SCH ×2 (08:29→20:03)
[2016-10-06] MEDS: ZYRTEC PO SCH (08:29)
--- NOTE | 2016-10-06 09:52 | PROGRESS NOTE ---
DATE: 10/06/2016 SUBJECTIVE: This is a 65-year-old. She presented with legs that were swelling and feeling short of breath. She has a history of morbid obesity, small cell lung cancer, status post chemotherapy and radiation, history of CVA, COPD, and hypothyroidism. She was sent to the ER by Dr. Alcaraz. She went to see Dr. Alcaraz for a followup, at which time, O2 saturations checked in the office were noted to be low at 70% room air. For the last 7 days she has had increased swelling and shortness of breath, so was admitted. PAST MEDICAL HISTORY: Once again, to review her past medical history: 1. Small cell lung cancer, status post chemotherapy and radiation. 2. COPD. 3. History of CVA. 4. Depression. 5. Hypertension. 6. Obstructive sleep apnea. 7. Morbid obesity. 8. Hypothyroidism. PAST SURGICAL HISTORY: She has had appendectomy, port placement, tonsillectomy, lung biopsy in 2011. PHYSICAL EXAMINATION: General: She is better, feels better. Shoulder is feeling better, and she is breathing more comfortably. She is off the BiPAP. Vital Signs: Temperature 98.2 degrees, pulse 116, respirations 22, blood pressure 112/62. Lungs: Clear in all lung crabtree. Cardiovascular: Regular rhythm and rate without murmur or S3. Abdomen: Soft. Skin: Warm and dry. Urine Output: Almost 3 liters. LABORATORY DATA: Lab reviewed from yesterday. Hematocrit stable at 31. Chemistries looked good. Creatinine 1. PHYSICIANS FOLLOWING THE PATIENT: Cardiology is following. Dr. Hernandez is following. ASSESSMENT AND PLAN: 1. Acute hypoxemic respiratory failure, multifactorial. The patient has been extubated. She had worsening bilateral infiltrates with a rise in white blood cell count. We are treating her for bilateral pneumonitis. Diastolic heart failure, I suspect it has a role as well with a tendency for cor pulmonale. 2. Obstructive sleep apnea. 3. Morbid obesity. 4. Chronic obstructive pulmonary disease. 5. Previous cerebrovascular accident. 6. Paroxysmal atrial fibrillation. The patient has remained in sinus rhythm. 7. Hypertension. 8. Hyperlipidemia. 9. Chronic kidney disease. 10. Previous small cell lung cancer treated with chemotherapy and radiation, aware. 11. Previously negative coronary angiography in 2014. She seems to be making progress. 12. Right shoulder pain tendinitis. We did inject her with Kenalog and that is feeling better. 13. Our goal will be to get her up, try and get her stronger, get her out of bed. Respiratory status is improving. 14. Review of her orders. I do not see anything to change at this point. cc: Magdy Dueñas MD
[2016-10-06 10:49] LABS: CALCIUM 10.1 mg/dL (8.8-10.2); POTASSIUM 3.4 mmol/L (3.5-5.1)
[2016-10-06 11:01] LABS: HEMATOCRIT 31.7 % (37.0-47.0); HEMOGLOBIN 10.4 g/dL (12.0-16.0); MCH 30.8 PG (27-31); MCHC 32.8 g/dL (33-37); MCV 93.8 FL (81-99); MPV 10.5 FL (7.4-10.4); RBC 3.38 XMIL (4.2-5.4)
[2016-10-06] MEDS: ATIVAN PO PRN ×2 (11:53→22:07)
[2016-10-06] MEDS: LEVAQUIN 500 MG/D5W 500 MG/100 ML IVPB IV SCH (18:18)
--- NOTE | 2016-10-06 19:22 | PROGRESS NOTE ---
DATE: 10/06/2016 PRESENT ILLNESS: The patient has bilateral pneumonia and symptomatic Citrobacter urinary tract infection. MEDICATIONS: This is day 6 of treatment with vancomycin and meropenem. Yesterday steroids were started. PHYSICAL EXAMINATION: Vital Signs: Temperature is 98 degrees, pulse 87, respirations 23, blood pressure 126/59. General: The patient looks better today. She is off her BiPAP mask. She is able to talk and move around better. She does not seem to be as short of breath as she was yesterday. Lungs: Bilateral wheezes. Cardiovascular: Regular heart rate. Abdomen: Soft and nontender. Legs: No erythema. There was edema though. LAB AND X-RAY: Chest x-ray shows improvement in the infiltrates. CBC showed a white count of 29,040, hemoglobin 10.4, and platelet count 396, 000. Blood gases show a pH of 7.41, PO2 of 124, pCO2 of 45. Creatinine is 1. GFR is 55. The patient 's white count is elevated, however, steroids were started in high dose yesterday and I think the leukocytosis is being caused by that, especially in view of the fact that the patient's x-ray is getting better and clinically she is getting better. ASSESSMENT AND PLAN: The patient has pneumonia and a UTI.My plan is to continue the current antibiotics. COMORBIDITIES: Lung cancer, stroke, gastroesophageal reflux disease and history of cigarette smoking. cc: Robert Hernandez MD MTDD
[2016-10-06] MEDS ORDERED: KLOR-CON PO ONE (19:32)
--- NOTE | 2016-10-06 19:56 | PROGRESS NOTE ---
DATE: 10/06/2016 SUBJECTIVE: Patient continues without dyspnea or chest discomfort, on supplemental oxygen. She is currently on 100% non-rebreather. OBJECTIVE: Vital Signs: Blood pressure 126/59, oxygen saturation 90-91%. Neck: Jugular distention cannot be appreciated. Chest: Auscultation of the chest reveals coarse breath sounds bilaterally, with some faint expiratory wheezes. Cardiac: Reveals a regular rate and rhythm, without appreciable murmur or gallop. There is no evidence of peripheral edema. LABORATORY DATA: Noteworthy for a white blood cell count of 29.04, hematocrit 31.7, potassium 3.4, BUN 47, creatinine 1.0, B-type natriuretic peptide level 4161. IMPRESSION: 1. Acute hypoxemic respiratory failure, multifactorial. Patient has had worsening bilateral infiltrates, with persistent rise in white blood cell count, suggesting bilateral pneumonitis. There appears to be a component of diastolic heart failure and cor pulmonale. 2. Obstructive sleep apnea. 3. Morbid obesity. 4. Chronic obstructive pulmonary disease. 5. Previous cerebrovascular accident. 6. Paroxysmal atrial fibrillation. Patient continues in sinus rhythm. 7. Hypertension. 8. Previous small cell lung cancer, treated with chemotherapy and radiation therapy. 9. Previous negative coronary angiography in 2015. RECOMMENDATIONS: 1. Given lack of improvement in respiratory status, I will try to diurese a little more aggressively in the next 24 hours, and monitor clinical response. 2. Continue parenteral antibiotics under the direction of Dr. Hernandez. 3. Continue BiPAP at night. cc: Salomon Thurman MD
[2016-10-06] MEDS: CALTRATE 600 + D PO SCH ×2 (20:02→20:32)
[2016-10-06] MEDS: VANCOMYCIN 2 GM in NS 500 ML IV SCH (20:03)
[2016-10-06] MEDS: LIPITOR PO SCH (20:03)
[2016-10-07] MEDS: SOLU-MEDROL IV SCH ×3 (01:06→17:59)
[2016-10-07] MEDS: LASIX IV SCH ×3 (02:22→11:28)
[2016-10-07] MEDS: DUONEB (A & A) INH SCH ×6 (03:00→23:15)
[2016-10-07 04:28] LABS: ALLEN TEST YES; BE 3.6 mmoll (-3.0-3.0); BLOOD TYPE ARTERIAL; DRAW SITE R RADIAL; METHB 0.7 % (0.0-1.5); MODALITY BI PAP; O2(CT) 22.3 mL/dL (15.0-23.0); PCO2(98.6) 43 mmHg (35-45); PO2(98.6) 78 mmHg (60-100); SAMPLE BLOOD; SAO2 97.1 % (95.0-100.0); THB 16.8 g/dL (11.5-17.4); pH(98.6) 7.43 (7.35-7.45)
[2016-10-07] MEDS: CARDIZEM PO SCH ×3 (04:43→20:54)
[2016-10-07] MEDS: SYNTHROID PO SCH (06:00)
[2016-10-07] MEDS: PRILOSEC PO SCH (06:00)
[2016-10-07] MEDS: MERREM 1 GM in NS 50 ML IV SCH ×3 (06:06→23:45)
--- NOTE | 2016-10-07 06:21 | Diag Imaging Result Doc PS360 ---
EXAM: CHEST-1 VIEW HISTORY: SOB TECHNIQUE: Portable AP COMPARISON: 10/06/2016 FINDINGS: There are dense infiltrates throughout the right lung and left base. Heart is mildly prominent. There is a small left pleural effusion with basilar atelectasis. The overall appearance is quite similar to that of the prior exam. IMPRESSION: No interval improvement.. Electronically signed by Dylon Fajardo 10/07/2016 6:18 AM
[2016-10-07] MEDS: DULERA 100 MCG/5 MCG INHALER INH SCH ×2 (08:09→19:20)
[2016-10-07] MEDS: MUCOMYST 20% INH SCH ×3 (08:09→19:20)
[2016-10-07] MEDS: SPIRIVA INH SCH (08:09)
[2016-10-07] MEDS: MIRALAX PO SCH ×2 (09:15→21:00)
[2016-10-07] MEDS: FLONASE NAS SCH ×2 (09:15→21:00)
[2016-10-07] MEDS: PLAVIX PO SCH (09:16)
[2016-10-07] MEDS: ZYRTEC PO SCH (09:16)
[2016-10-07] MEDS: CENTRUM SILVER PO SCH (09:16)
[2016-10-07] MEDS: ZOLOFT PO SCH (09:16)
[2016-10-07] MEDS: LOVENOX SUBQ SCH ×2 (09:16→20:55)
[2016-10-07] MEDS: AGGRENOX PO SCH (09:17)
[2016-10-07] MEDS: TESSALON PO SCH ×3 (09:17→18:00)
[2016-10-07] MEDS: ATIVAN PO PRN (12:01)
[2016-10-07 12:08] LABS: CALCIUM 9.6 mg/dL (8.8-10.2); POTASSIUM 3.9 mmol/L (3.5-5.1)
--- NOTE | 2016-10-07 12:16 | PROGRESS NOTE ---
DATE: 10/07/2016 SUBJECTIVE: Ms. Alvarenga reports that her breathing is somewhat better. She is somewhat anxious. Family reports this is secondary to doses of steroids she has received in the last 24 hours. She is on BiPAP presently and able to speak in full sentences. OBJECTIVE: Vital Signs: More recently, she has been afebrile. Heart rates appear to be predominantly in the 80s to 90s. Her blood pressure is 134/75. Her I/O's for the course of the hospitalization have been -10.7 L . Generally: No acute distress. HEENT: Oropharynx is moist. BiPAP is in place. Cardiovascular: She sounds to be in a regular rate and rhythm. I do not hear any obvious murmurs, but somewhat distant heart sounds. She has trace to 1+ bilateral lower extremity edema. Lungs: Her chest exam had some what mild coarse breath sounds to auscultation. I heard all her breath sounds in all lung crabtree. She had good inspiratory effort. Abdomen: Soft, nontender. PERTINENT DATA: No CBC was performed today. She did have an ABG with a pH of 7.4. Her pCO2 was 43, PO2 was 78 and that was on an FiO2 of 100% with BiPAP, giving her an A-a gradient of 581 which has steadily climbed over the last 3 days. She has no chemistry yet today. It is currently pending. Her proBNP is 3520, which is down from 4161 which was the peak during this hospitalization on the . Her most recent chest x-ray from today demonstrated dense infiltrates throughout the right lung and left base. Heart was mildly prominent. Small left pleural effusion. Essentially an unchanged study from previous. ASSESSMENT: 1. Acute hypoxemic respiratory failure that is likely multifactorial with possible components of pneumonitis, diastolic heart failure and cor pulmonale. 2. Obstructive sleep apnea with morbid obesity. 3. Chronic obstructive pulmonary disease. 4. Paroxysmal atrial fibrillation. 5. Hypertension. 6. History of small-cell lung cancer, previously treated. PLAN: We are awaiting her basic metabolic panel. She is currently diuresing and has diuresed quite well over the course of the hospitalization. Notably, her BUN and creatinine last checked on the seemed to have a trend up from the day previous with a BUN of 47 with a stable creatinine of 1.0. She is currently on diuretics in the form of IV Lasix 60 mg IV q.8. She may be in need of a down titration of that medication given the recent trend. We will follow up on the BMP later on today. cc: Stanislaw Castano MD
[2016-10-07] MEDS: ATIVAN IV PRN (13:53)
[2016-10-07] MEDS: LEVAQUIN 500 MG/D5W 500 MG/100 ML IVPB IV SCH (18:29)
--- NOTE | 2016-10-07 19:57 | PROGRESS NOTE ---
DATE: 10/07/2016 PRESENT ILLNESS: The patient has a bilateral pneumonia and symptomatic Citrobacter urinary tract infection. MEDICATIONS: The patient has been on vancomycin and meropenem for 8 days and on Levaquin now for 4 days. Patient also is on steroids. PHYSICAL EXAMINATION: Vital Signs: Temperature is 97.8 degrees, pulse 92, respirations 24, blood pressure 111/72. General: This is an obese, ill-appearing, elderly female who is in no acute distress. Lungs: There were bilateral expiratory wheezes. Cardiovascular: Regular heart rate. Abdomen: Soft and nontender. Neurologic: Patient is alert and can move her extremities. LAB AND X-RAY: The x-ray for today shows bilateral infiltrates. There is new laboratory data. Yesterday the white count was up to 29,000. There is not a CBC for today. The blood gases showed a pH of 7.43, a PO2 of 78, pCO2 of 43. The patient's creatinine is 1.0, GFR is 55. ASSESSMENT AND PLAN: Patient has pneumonia and urinary tract infection. I plan to continue her current antibiotics. COMORBIDITIES: Lung cancer, stroke, gastroesophageal reflux disease and a history of cigarette smoking. cc: Robert Hernandez MD
[2016-10-07] MEDS: VANCOMYCIN 2.2 GM in NS 500 ML IV SCH (20:21)
[2016-10-07] MEDS: LIPITOR PO SCH (20:55)
[2016-10-07] MEDS: CALTRATE 600 + D PO SCH (20:55)
[2016-10-07] MEDS: TYLENOL PO PRN (21:03)
[2016-10-08] MEDS: SOLU-MEDROL IV SCH ×3 (01:03→15:06)
[2016-10-08] MEDS: DUONEB (A & A) INH SCH ×6 (03:05→23:00)
[2016-10-08 04:42] LABS: ALLEN TEST YES; BLOOD TYPE ARTERIAL; DRAW SITE R RADIAL; METHB 1.1 % (0.0-1.5); MODALITY BI PAP; O2(CT) 13.6 mL/dL (15.0-23.0); PCO2(98.6) 38 mmHg (35-45); PO2(98.6) 89 mmHg (60-100); SAMPLE BLOOD
[2016-10-08] MEDS: CARDIZEM PO SCH (05:46)
[2016-10-08 05:50] LABS: AGAP 16; BUN 57 mg/dL (8-22); CALCIUM 9.4 mg/dL (8.8-10.2); CHLORIDE 101 mmol/L (98-107); COSMO 304; POTASSIUM 3.4 mmol/L (3.5-5.1); SODIUM 143 mmol/L (136-145); TCO2 26 mmol/L (25-35)
[2016-10-08] MEDS: SYNTHROID PO SCH (06:07)
[2016-10-08] MEDS: MERREM 1 GM in NS 50 ML IV SCH ×3 (06:08→22:30)
[2016-10-08] MEDS: PRILOSEC PO SCH (06:08)
--- NOTE | 2016-10-08 07:29 | PROGRESS NOTE ---
DATE: 10/07/2016 SUBJECTIVE: Ms. Alvarenga had a pretty good night; breathing comfortably. Later on this afternoon though the nurses felt like she was having panic attacks. OBJECTIVE: Vital Signs: Temperature 97.4, pulse 98, and respirations 28. Lungs: Clear in all lung crabtree. Cardiovascular: Regular rhythm and rate without murmur or S3. Abdomen: Soft. Skin: Warm and dry. Urine output: 3,000 mL. LABORATORY DATA: Reviewed from yesterday. Chemistries from this morning: Sodium is 142, potassium 3.9, chloride 101, BUN 57, and creatinine 1. ASSESSMENT AND PLAN: 1. Acute hypoxemic respiratory failure, likely multifactorial, possible components of pneumonitis, diastolic heart failure, and cor pulmonale. She is doing better. Better getting air and gas exchange. 2. Obstructive sleep apnea with morbid obesity. 3. Chronic obstructive pulmonary disease. 4. Paroxysmal atrial fibrillation. 5. Hypertension. 6. History of small cell lung cancer. The patient has had some agitation and some confusion. Looking over her medications I may want to try and stop the Zyrtec and I may watch and see how she does on the hydrocodone. She is presently getting some meropenem. She is on methylprednisone 40 mg IV every 8 hours and I may cut that down to 20 mg and she is on vancomycin. cc: Magdy Dueñas MD
[2016-10-08] MEDS: SPIRIVA INH SCH (08:02)
[2016-10-08] MEDS: DULERA 100 MCG/5 MCG INHALER INH SCH ×2 (08:02→19:10)
[2016-10-08] MEDS: MUCOMYST 20% INH SCH ×3 (08:03→19:10)
--- NOTE | 2016-10-08 08:11 | Diag Imaging Result Doc PS360 ---
EXAM: CHEST-1 VIEW INDICATION: SOB TECHNIQUE: One view COMPARISON: 10/07/2016 FINDINGS: The patient is rotated toward the left. Diffuse consolidation on the right and left basilar consolidation is approximately stable. No new consolidation is appreciated. Cardiac silhouette is stable. IMPRESSION: Stable chest. Electronically signed by Nilesh Flynn 10/08/2016 8:09 AM
[2016-10-08] MEDS: LOVENOX SUBQ SCH ×2 (08:17→20:15)
[2016-10-08] MEDS: ATIVAN IV PRN ×3 (08:31→20:22)
[2016-10-08] MEDS: PLAVIX PO SCH (08:38)
[2016-10-08] MEDS: AGGRENOX PO SCH (08:38)
[2016-10-08] MEDS: ZYRTEC PO SCH (08:38)
[2016-10-08] MEDS: ZOLOFT PO SCH (08:38)
[2016-10-08] MEDS: MIRALAX PO SCH ×2 (08:39→20:14)
[2016-10-08] MEDS: TESSALON PO SCH ×3 (08:39→18:14)
[2016-10-08] MEDS: CENTRUM SILVER PO SCH (08:39)
[2016-10-08] MEDS: FLONASE NAS SCH ×2 (08:39→20:13)
[2016-10-08] MEDS ORDERED: LASIX IV SCH (09:00)
[2016-10-08] MEDS ORDERED: CARDIZEM 100 MG/NS 100 MG/100 ML IVPB IV SCH (10:05)
--- NOTE | 2016-10-08 10:27 | PROGRESS NOTE ---
DATE: 10/08/2016 SUBJECTIVE: Ms. Alvarenga reports she is breathing a little bit better today. Notably around 4:45 this morning, it appears she went into rapid atrial fibrillation. OBJECTIVE: Vital Signs: On physical examination, she is afebrile. Heart rates during my examination were in the 120s to 130s. Blood pressure 135/81. Her intake/output for the course of the hospitalization have been negative 10.2 L. General: No acute distress. Cardiovascular: She is in an irregularly irregular tachycardic rhythm. No murmurs. She has no lower extremity edema. She has warm and well perfused lower extremities. Chest exam: Has coarse breath sounds bilaterally. She currently is on BiPAP. Abdomen: Soft and nontender. PERTINENT DATA: Her sodium is 143, potassium 3.4. Her BUN is 57 with a creatinine of 0.8, which is roughly stable from yesterday. Her proBNP is 2113, which is down from 4161 on the th. ASSESSMENT: 1. Atrial fibrillation with rapid ventricular response. 2. Likely pneumonitis, diastolic heart failure and cor pulmonale resulting in acute hypoxemic respiratory failure. 3. Obstructive sleep apnea with morbid obesity. 4. Hypertension. PLAN: I will stop her p.o. diltiazem and place her on a Cardizem infusion. We will try to gain control of her rate via that method. I believe she is likely dry, so I will stop her b.i.d. Lasix and place her on once-daily Lasix. Recheck her labs in the morning. Certainly we could consider stopping that if her BUN continues to rise. cc: Stanislaw Castano MD
[2016-10-08] MEDS: CARDIZEM 125 MG in NS 100 ML IV SCH (10:44)
--- NOTE | 2016-10-08 11:29 | PROGRESS NOTE ---
DATE: 10/08/2016 SUBJECTIVE: Ms. Alvarenga has had a little more shortness of breath. Heart rate has gone up. We had to put her back on BiPAP. She is very anxious and stays pretty anxious. White count has gone up to 29,040. Hematocrit 31, platelet count 396,000. Sodium 143, potassium 3.4, chloride 101. BUN 57, creatinine 0.8. Her chest x-ray from today: The patient is rotated towards the left. Diffuse consolidations in the right and left. Basilar consolidation approximately stable. No new consolidation appreciated. Cardiac silhouette stable, so appears about the same. ASSESSMENT AND PLAN: 1. Patient with bilateral pneumonia. 2. Citrobacter urinary tract infection. This will be day 9 for meropenem and Levaquin. She has remained afebrile. 3. She is having a hard time with gas exchange and requiring BiPAP. I think this is multifactorial with the pneumonia, bilateral consolidation, sleep apnea, and morbid obesity. 4. Paroxysmal atrial fibrillation. 5. Hypertension. 6. A distant history of small lung cell cancer. I do not see any radiographic evidence of increase in tumor load or presence of active tumor. 7. She remains very anxious and very agitated. We will have to watch giving her benzodiazepines for agitation as we are trying to continue to encourage her to breathe and breathe deeply. She is on the meropenem 1 g q. 8. She is on methylprednisone 40 mg IV q. 8. I may cut that down to see if it will help with her anxiety to 20 mg IV q. 8. She did get a dose of vancomycin and started her on that last night. cc: Magdy Dueñas MD
[2016-10-08] MEDS ORDERED: LASIX IV ONE (16:00)
[2016-10-08] MEDS: LEVAQUIN 500 MG/D5W 500 MG/100 ML IVPB IV SCH (18:16)
[2016-10-08] MEDS: CALTRATE 600 + D PO SCH (20:03)
[2016-10-08] MEDS: LIPITOR PO SCH (20:03)
[2016-10-08] MEDS: VANCOMYCIN 2.2 GM in NS 500 ML IV SCH (20:03)
[2016-10-08] MEDS: TYLENOL PO PRN (23:28)
[2016-10-08] MEDS: ATIVAN PO PRN (23:28)
[2016-10-09] MEDS: SOLU-MEDROL IV SCH ×3 (00:02→16:48)
[2016-10-09] MEDS: ATIVAN IV PRN ×4 (00:08→21:29)
[2016-10-09] MEDS: CARDIZEM 125 MG in NS 100 ML IV SCH ×2 (01:22→14:40)
[2016-10-09] MEDS: DUONEB (A & A) INH SCH ×6 (03:15→23:00)
[2016-10-09 04:58] LABS: ALLEN TEST YES; BE 8.2 mmoll (-3.0-3.0); BLOOD TYPE ARTERIAL; DRAW SITE R RADIAL; METHB 1.3 % (0.0-1.5); O2(CT) 12.5 mL/dL (15.0-23.0); PCO2(98.6) 40 mmHg (35-45); PO2(98.6) 56 mmHg (60-100); SAMPLE BLOOD; SAO2 93.9 % (95.0-100.0); THB 9.8 g/dL (11.5-17.4); pH(98.6) 7.51 (7.35-7.45)
[2016-10-09 05:01] LABS: MODALITY BI PAP
[2016-10-09 06:14] LABS: INR 1.07; PROTIME 11.3 Seconds (9.2-11.7)
[2016-10-09] MEDS: MERREM 1 GM in NS 50 ML IV SCH ×3 (06:19→23:44)
[2016-10-09] MEDS: SYNTHROID PO SCH (06:19)
[2016-10-09] MEDS: PRILOSEC PO SCH (06:19)
[2016-10-09 06:38] LABS: AGAP 13; BUN 55 mg/dL (8-22); CALCIUM 9.3 mg/dL (8.8-10.2); CHLORIDE 104 mmol/L (98-107); COSMO 306; POTASSIUM 3.4 mmol/L (3.5-5.1); SODIUM 145 mmol/L (136-145); TCO2 28 mmol/L (25-35)
[2016-10-09] MEDS: SPIRIVA INH SCH (07:46)
[2016-10-09] MEDS: MUCOMYST 20% INH SCH ×3 (07:46→19:10)
[2016-10-09] MEDS: DULERA 100 MCG/5 MCG INHALER INH SCH ×2 (07:47→19:10)
--- NOTE | 2016-10-09 08:16 | Diag Imaging Result Doc PS360 ---
EXAM: CHEST-1 VIEW INDICATION: SOB TECHNIQUE: One view COMPARISON: 10/08/2016 FINDINGS: Bilateral consolidations, much more prominent on the right, are unchanged. There are no new consolidations appreciated. Cardiac silhouette is stable. IMPRESSION: Stable chest. Electronically signed by Nilesh Flynn 10/09/2016 8:14 AM
[2016-10-09] MEDS ORDERED: MAGNESIUM SULFATE 2 GM/S.W.I. 2 GM/50 ML IVPB IV ONE (08:21)
[2016-10-09] MEDS: CENTRUM SILVER PO SCH (08:36)
[2016-10-09] MEDS: LASIX IV SCH (08:36)
[2016-10-09] MEDS: ZOLOFT PO SCH (08:36)
[2016-10-09] MEDS: TESSALON PO SCH ×3 (08:36→16:48)
[2016-10-09] MEDS: ZYRTEC PO SCH (08:36)
[2016-10-09] MEDS: FLONASE NAS SCH ×2 (08:37→20:12)
--- NOTE | 2016-10-09 08:43 | PROGRESS NOTE ---
DATE: 10/09/2016 SUBJECTIVE: Ms. Alvarenga is on the BiPAP still, had a little more trouble breathing this morning but she is more alert. She seems to be much calmer. PHYSICAL EXAMINATION: Vital Signs: Temperature 98.2 degrees, pulse 89, respirations 24, and blood pressure 105/56. Lungs: Clear in all lung crabtree. Cardiovascular Examination: Regular rhythm and rate without murmur or S3. Abdomen: Soft. Skin: Warm and dry. Is and Os: Urine output over 3500 mL. LAB: Reviewed from the . CBC: Hematocrit stable at 31. Chemistry: Sodium 145, potassium 3.4, chloride 104, BUN 55, creatinine 0.9. Stable chest. Bilateral consolidation is much more prominent on the right but basically unchanged from the chest x-ray this morning but continue BiPAP. I think she is improving clinically. ASSESSMENT AND PLAN: 1. Atrial fibrillation, rapid ventricular response. We will supplement some potassium. 2. Likely pneumonitis, bilateral atelectasis, basilar, and treating for bibasilar infiltrates. Continue BiPAP. We will see if we can get her up in a chair today to try and expand her lungs. 3. Chronic obstructive pulmonary disease with morbid obesity hypoventilation syndrome. 4. Hypertension. Blood pressure is controlled. 5. Citrobacter urinary tract infection. This will the 10th day of meropenem and Levaquin in addition to treating for bilateral pneumonia. Supplement some potassium today and some magnesium. Otherwise no change. cc: Magdy Dueñas MD
[2016-10-09] MEDS ORDERED: NS 250 ML ONE (10:56)
[2016-10-09] MEDS: MIRALAX PO SCH ×2 (10:57→20:13)
--- NOTE | 2016-10-09 13:01 | PROGRESS NOTE ---
DATE: 10/09/2016 SUBJECTIVE: She reports her breathing is at least stable and maybe a little bit better. PHYSICAL EXAMINATION: Vital signs: Afebrile. Her heart rates seem to be in the 80s to low 100s. Her blood pressure is 115/74. Her I's and O's over the last 24 hours continue to be negative with a total out of 11.3 for the hospitalization. General: No acute distress. Cardiovascular: She sounds to be in a regular rate and rhythm. She has no murmurs. No S3. No lower extremity edema. Chest Exam: Continues to have some mild coarse breath sounds with some suggestion of mild end- expiratory wheezes. No increased work of breathing presently. She has BiPAP in place. Abdomen: Soft, nontender. PERTINENT DATA: His sodium 145, potassium 3.4, BUN 55, creatinine 0.9 which is roughly stable. ASSESSMENT: 1. Respiratory failure, thought to be multifactorial including diastolic heart failure and cor pulmonale. 2. Obstructive sleep apnea. 3. Atrial fibrillation. PLAN: We will continue her current regimen. She seems to be progressing from a pulmonary standpoint. Her rate is controlled presently. cc: Stanislaw Castano MD
[2016-10-09] MEDS: POTASSIUM CHLORIDE 20 MEQ/SWI 20 MEQ/100 ML IVPB IV SCH ×2 (13:58→15:57)
[2016-10-09] MEDS: LOVENOX SUBQ SCH ×2 (14:25→20:12)
[2016-10-09] MEDS: AGGRENOX PO SCH (14:29)
[2016-10-09] MEDS: PLAVIX PO SCH (14:29)
[2016-10-09] MEDS: LEVAQUIN 500 MG/D5W 500 MG/100 ML IVPB IV SCH (20:06)
[2016-10-09] MEDS: VANCOMYCIN 2.2 GM in NS 500 ML IV SCH (20:10)
[2016-10-09] MEDS: CALTRATE 600 + D PO SCH (20:12)
[2016-10-09] MEDS: LIPITOR PO SCH (20:12)
[2016-10-09] MEDS ORDERED: SOLU-MEDROL IV ONE (23:28)
[2016-10-09 23:35] LABS: ALLEN TEST YES; BLOOD TYPE ARTERIAL; DRAW SITE R RADIAL; O2(CT) 13.1 mL/dL (15.0-23.0); PCO2(98.6) 38 mmHg (35-45); PO2(98.6) 65 mmHg (60-100); SAMPLE BLOOD; SAO2 96.2 % (95.0-100.0)
[2016-10-09 23:36] LABS: MODALITY BI PAP
[2016-10-10] MEDS: SOLU-MEDROL IV SCH ×3 (01:21→16:14)
[2016-10-10] MEDS: ATIVAN IV PRN ×3 (01:22→21:00)
[2016-10-10] MEDS: DUONEB (A & A) INH SCH ×6 (03:20→23:45)
[2016-10-10 04:45] LABS: ALLEN TEST YES; BE 5.6 mmoll (-3.0-3.0); BLOOD TYPE ARTERIAL; DRAW SITE R RADIAL; METHB 0.8 % (0.0-1.5); O2(CT) 13.1 mL/dL (15.0-23.0); PCO2(98.6) 41 mmHg (35-45); PO2(98.6) 74 mmHg (60-100); SAMPLE BLOOD; SAO2 97.4 % (95.0-100.0); THB 9.8 g/dL (11.5-17.4); pH(98.6) 7.47 (7.35-7.45)
[2016-10-10 04:46] LABS: MODALITY BI PAP
[2016-10-10 05:51] LABS: BASO% 0.3 % (0.0-0.8); HEMATOCRIT 29.2 % (37.0-47.0); HEMOGLOBIN 9.4 g/dL (12.0-16.0); IMM GRAN% 3.8 % (0.0-0.5); LYMPH# 0.84 X1000 (1.2-3.4); LYMPH% 2.7 % (20.5-51.1); MANUAL DIFF NEEDED? YES; MCHC 32.2 g/dL (33-37); MCV 93.3 FL (81-99); MONO# 1.14 X1000 (0.11-0.59); MONO% 3.6 % (1.7-9.3); NEUT% 89.6 % (42.2-75.2); PLT 447 X1000 (130-400); RBC 3.13 XMIL (4.2-5.4)
[2016-10-10] MEDS: PRILOSEC PO SCH (06:16)
[2016-10-10] MEDS: SYNTHROID PO SCH (06:16)
[2016-10-10] MEDS: MERREM 1 GM in NS 50 ML IV SCH ×2 (06:16→14:04)
[2016-10-10 06:18] LABS: CALCIUM 9.4 mg/dL (8.8-10.2); POTASSIUM 4.1 mmol/L (3.5-5.1)
[2016-10-10 07:38] LABS: BANDS 4 % (0-1); HYPOCHROM 2+; LYMPHS 6 % (21-51); MONO 2 % (1-9)
--- NOTE | 2016-10-10 07:43 | Diag Imaging Result Doc PS360 ---
CHEST-1 VIEW - 10/10/2016 INDICATION: SOB TECHNIQUE: COMPARISON: 10/09/2016 FINDINGS: There is a new right PICC line with the catheter tip in the mid SVC. Stable extensive infiltrate throughout the right lung diffusely. Stable left basilar effusion and/or consolidation. Heart size remains grossly normal. IMPRESSION: New PICC line. Otherwise no change from prior. Electronically signed by Bry Taylor 10/10/2016 7:41 AM
[2016-10-10] MEDS: DULERA 100 MCG/5 MCG INHALER INH SCH ×2 (07:59→19:59)
[2016-10-10] MEDS: MUCOMYST 20% INH SCH ×3 (08:00→19:58)
[2016-10-10] MEDS: SPIRIVA INH SCH (08:00)
[2016-10-10] MEDS: ZYRTEC PO SCH (08:47)
[2016-10-10] MEDS: AGGRENOX PO SCH (08:47)
[2016-10-10] MEDS: ZOLOFT PO SCH (08:47)
[2016-10-10] MEDS: PLAVIX PO SCH (08:47)
[2016-10-10] MEDS: CENTRUM SILVER PO SCH (08:47)
[2016-10-10] MEDS: LASIX IV SCH (08:47)
[2016-10-10] MEDS: FLONASE NAS SCH ×2 (08:48→20:59)
[2016-10-10] MEDS: TESSALON PO SCH ×3 (08:48→16:17)
[2016-10-10] MEDS: LOVENOX SUBQ SCH ×2 (08:48→21:00)
[2016-10-10] MEDS: MIRALAX PO SCH ×2 (08:48→21:19)
--- NOTE | 2016-10-10 10:25 | PROGRESS NOTE ---
DATE: 10/10/2016 SUBJECTIVE: She is awake and alert. She feels better. She is talking about wanting to get out of here. Her air and gas exchange have improved. She is still on BiPAP at the present time. is at the bedside. Remains afebrile. PHYSICAL EXAMINATION: Vital Signs: Temperature 97.9 degrees, pulse 96, respirations 25, blood pressure 137/80. HEENT: Pupils are equal and round. CVP less than 6 cm. Lungs: Clear in all lung crabtree. Cardiovascular Examination: Regular rhythm and rate without murmur or S3. Abdomen: Soft. Extremities: No pedal edema. Is and Os: Urine output was almost a liter. LABORATORY DATA: Review of lab. Note, the white count seems to be going up, 31,330, hematocrit 29, platelet count 447,000. Sodium 145, potassium 4.1, chloride 104, bicarb 26, BUN 59, creatinine 1. ProBNP was 2000 from the 19th. Chest x-ray done this morning, new PICC line. Otherwise no change. Stable extensive infiltrates through the right lung diffusely, stable left basilar effusion or consolidation. ASSESSMENT AND PLAN: 1. Respiratory failure, multifactorial. I suspect some diastolic heart failure and cor pulmonale. We are treating her for pneumonia, bilateral basilar atelectasis. She has underlying atrial fibrillation as well which contributes to the diastolic dysfunction. Clinically, I think she is getting better. Continue to try to get her, try and get her to take deep breaths and expand her lung crabtree. Her obesity is an issue. Overall, she is just hypovolemic, hypoventilatory state but I see some improvement. Continue BiPAP. Increase activity. 2. Chronic obstructive pulmonary disease, morbid obesity, hypoventilation syndrome. 3. Hypertension. 4. Citrobacter urinary tract infection. Treating her for pneumonia so continue meropenem and Levaquin. This is the 11th day. 5. Atrial fibrillation. She is back in sinus rhythm. Appears to be controlled. Rate seems to be controlled. Encourage oral intake. She did not eat much yesterday, a little bit of Jell- O. Otherwise, I do not see any change. I suspect 1 of the reasons elevated white count was the addition of methylprednisone which was reduced down to 20 mg intravenous every 8. I think I did that. She is also on levofloxacin. She is taking Zyrtec, much less anxious. cc: Magdy Dueñas MD
[2016-10-10] MEDS: CARDIZEM 125 MG in NS 100 ML IV SCH (11:43)
[2016-10-10] MEDS ORDERED: CALMOSEPTINE OINTMENT TOP PRN (17:25)
--- NOTE | 2016-10-10 18:20 | PROGRESS NOTE ---
DATE: 10/10/2016 SUBJECTIVE: Ms. Alvarenga is still on BiPAP, still working to move air. She seems to be less anxious. OBJECTIVE: Vital signs: Temperature 97.9 degrees, pulse 80, respirations 18, blood pressure 111/72. Lungs: Are clear. There is dry rales appreciated bilateral in base. Cardiovascular: Regular rhythm, rate without murmur or S3. Abdomen: Soft. Skin: Is warm and dry. Urine output 1400 mL. LAB: Reviewed from today. White count 31,330, hematocrit 29, platelet count 447,000. Chemistry sodium 145, potassium 4.1, chloride 104, BUN 59, creatinine 1.5. ASSESSMENT AND PLAN: 1. Respiratory failure multifactorial, suspect diastolic heart failure, cor pulmonale, also suspect she has a mild case of acute respiratory distress syndrome, white count still elevated so continue BiPAP and there is still possibility she may end up having to back on the ventilator. Will try and increase her activity, get her lungs to expand. 2. Chronic obstructive pulmonary disease, morbid obesity, hypoventilation syndrome. 3. Hypertension. 4. Citrobacter urinary tract infection and pneumonia treating with meropenem and Levaquin and this is the 11th day. 5. Atrial fibrillation in sinus rhythm. cc: Magdy Dueñas MD
[2016-10-10] MEDS: LEVAQUIN 500 MG/D5W 500 MG/100 ML IVPB IV SCH (18:28)
--- NOTE | 2016-10-10 19:36 | PROGRESS NOTE ---
DATE: 10/10/2016 PRESENT ILLNESS: The patient has bilateral pneumonia. It is more intense on the right side than the left. She also has a Citrobacter urinary tract infection. MEDICATIONS: The patient has been on vancomycin for 11 days, meropenem for 10 days, and Levaquin for 6 days. The patient also is on steroids. PHYSICAL EXAMINATION: Vital Signs: Temperature is 97.3 degrees, pulse 88, respirations 18, blood pressure 111/72. General: This is an obese, ill-appearing, elderly female. She is wearing a BiPAP mask and seems to be having some difficulty breathing. Lungs: There were bilateral rhonchi. Cardiovascular: Regular heart rate. Abdomen: Soft and nontender. Neurologic: Patient is alert. She can talk and she can move her extremities. LAB AND X-RAY: Chest x-ray shows right greater than left side consolidation of the lungs. The patient has a CBC shows a white count of 31,330, hemoglobin 9.4, and platelet count 447,000. Urinary culture grew Citrobacter. Blood cultures are negative. Sputum grew normal maris and yeast. The patient's blood gases showed a pH of 7.47, PO2 of 74, pCO2 of 41. The patient's creatinine is 1.0. The GFR is 55. ASSESSMENT AND PLAN: The patient continues to have bilateral pneumonia. She also has a urinary tract infection but this may well be asymptomatic. The plan is to continue with the current antibiotics. As mentioned above, I think some of the leukocytosis could be due to the fact that the patient is on steroids. The patient's comorbidities include lung cancer, stroke, gastroesophageal reflux disease, history of cigarette smoking, and COPD. cc: Robert Hernandez MD
[2016-10-10] MEDS: CALTRATE 600 + D PO SCH (20:58)
[2016-10-10] MEDS: LIPITOR PO SCH (20:59)
[2016-10-11] MEDS: SOLU-MEDROL IV SCH ×4 (00:53→23:27)
[2016-10-11] MEDS: MERREM 1 GM in NS 50 ML IV SCH ×4 (00:53→22:19)
[2016-10-11] MEDS: ATIVAN IV PRN ×3 (02:00→20:34)
[2016-10-11] MEDS: DUONEB (A & A) INH SCH ×6 (02:52→22:43)
[2016-10-11 05:02] LABS: ALLEN TEST YES; BLOOD TYPE ARTERIAL; DRAW SITE R RADIAL; METHB 1.8 % (0.0-1.5); PCO2(98.6) 49 mmHg (35-45); PO2(98.6) 61 mmHg (60-100); SAMPLE BLOOD; SAO2 92.4 % (95.0-100.0); pH(98.6) 7.43 (7.35-7.45)
[2016-10-11 05:03] LABS: MODALITY BI PAP
[2016-10-11] MEDS: SYNTHROID PO SCH (06:41)
[2016-10-11] MEDS: PRILOSEC PO SCH (06:41)
--- NOTE | 2016-10-11 07:14 | Diag Imaging Result Doc PS360 ---
EXAM: CHEST-1 VIEW HISTORY: SOB TECHNIQUE: Erect AP portable at 0535 COMMENT: There is diffuse alveolar opacity throughout the right lung. This was also the case on 10/10/2016. There has been no appreciable change. IMPRESSION: Right pneumonia. Electronically signed by Pako Chow 10/11/2016 7:12 AM
[2016-10-11] MEDS: MUCOMYST 20% INH SCH ×3 (07:50→19:22)
[2016-10-11] MEDS: DULERA 100 MCG/5 MCG INHALER INH SCH ×2 (07:51→19:22)
[2016-10-11] MEDS: SPIRIVA INH SCH (07:51)
[2016-10-11] MEDS: LOVENOX SUBQ SCH ×2 (09:43→20:36)
[2016-10-11] MEDS: TESSALON PO SCH ×3 (09:43→16:19)
[2016-10-11] MEDS: LASIX IV SCH (09:44)
[2016-10-11] MEDS: ZOLOFT PO SCH (09:44)
[2016-10-11] MEDS: ZYRTEC PO SCH (09:44)
[2016-10-11] MEDS: CENTRUM SILVER PO SCH (09:44)
[2016-10-11] MEDS: PLAVIX PO SCH (09:44)
[2016-10-11] MEDS: FLONASE NAS SCH ×2 (09:45→20:35)
[2016-10-11] MEDS: MIRALAX PO SCH ×2 (09:46→20:36)
[2016-10-11] MEDS: AGGRENOX PO SCH (11:23)
[2016-10-11] MEDS: CARDIZEM 125 MG in NS 100 ML IV SCH (11:23)
--- NOTE | 2016-10-11 12:23 | PROGRESS NOTE ---
DATE: 10/11/2016 Today Ms. Alvarenga refers to be doing a little better. Breathing is improved but continued to significantly be needing BiPAP for adequate oxygenation. OBJECTIVE: Vital signs: Blood pressure is 148/88, pulse of 87, respirations 28, temperature 96.4 degrees. Patient is saturating 92% on the BiPAP. It goes all the way down to the low 80s to 70s when she is off the BiPAP. General Exam: Ms. Alvarenga is a 65-year-old female. She is in bed, in mild respiratory distress. HEENT: Mucosa is pink and moist. Anicteric. Acyanotic. Neck: Supple. Chest: Air entry is bilaterally reduced. There is diffuse wheezing in both lung crabtree and some inspiratory coarse crackles bilaterally in both lungs. Cardiovascular: Regular rate and rhythm. There is no murmurs, no rubs. No gallops. Abdomen: Soft. Extremities: No pedal edema. No gallops. 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 X-RAYS AND IMAGING STUDIES: X-ray this morning there is diffuse alveolar opacity throughout the right lung, right pneumonia. LABORATORY DATA: WBC is 33.33, hemoglobin is 9.4, platelet count 447,000. There is 4% of bands on peripheral smear. Chemistry is reviewed, completely unremarkable. ProBNP still 2127. An echocardiogram which was done on admission shows ejection fraction of 70%. RV systolic pressure of 49. ASSESSMENT: 1. ARDS. Etiology unclear. We think it is secondary to infectious (pneumonia). Patient is currently on antibiotics. 2. Diastolic heart failure. 3. Paroxysmal atrial fibrillation. 4. History of chronic obstructive pulmonary disease. 5. Hypothyroidism. CURRENT MEDICATIONS INCLUDE: 1. Nebulizations. 2. Atorvastatin 80 mg daily. 3. Plavix 75 mg daily. 4. Aggrenox. 5. Lovenox 120 subcu q.12. 6. Lasix 60 mg IV daily. 7. Labetalol p.r.n. 8. Levofloxacin 500 daily. 9. Levothyroxine. 10. Meropenem 1 g q.8. 11. Solu-Medrol 20 mg IV q.8. So in general I think Ms. Alvarenga is relatively stable. However she still continues to have remarkable symptoms. She is currently on antibiotics and Lasix. We will do a CT scan of the lungs to give us a better idea about the lung anatomy. We will continue with the antibiotics and all the other medications. cc: Malvin Puckett MD
--- NOTE | 2016-10-11 16:28 | PROGRESS NOTE ---
DATE: 10/11/2016 SUBJECTIVE: Patient continues pretty much the same an remains on BiPAP with significant oxygen requirement. She denies any chest discomfort. OBJECTIVE: Vital Signs: Blood pressure 161/85, heart rate 97 and regular. Oxygen saturation 95% on BiPAP with oxygen at 100%. Chest: Auscultation reveals diffuse wheezing and some inspiratory coarse crackles in the bases bilaterally. Cardiac: A regular rate and rhythm. No murmur, rub or gallop could be appreciated. Extremities: Without edema. LABORATORY DATA: Remarkable for white blood cell count 31.33. BUN 49, creatinine 1. IMPRESSION: 1. Hypoxemic respiratory failure. Suspect this is predominantly related to bilateral pneumonia and the possibility of superimposed acute respiratory distress syndrome. 2. Chronic diastolic heart failure. Diuresis does not seem to have improved her hypoxemia and laboratory data suggests emerging prerenal azotemia. 3. Paroxysmal atrial fibrillation. 4. Chronic obstructive pulmonary disease. 5. Previous cerebrovascular accident. 6. Hypertension. 7. Previous small cell lung cancer treated with chemotherapy and radiation therapy approximately 5 years ago. 8. Previous negative coronary angiography in 2014. RECOMMENDATIONS: Continue Lasix at reduced dose once daily. cc: Salomon Thurman MD
--- NOTE | 2016-10-11 18:42 | PROGRESS NOTE ---
DATE: 10/11/2016 PRESENT ILLNESS: Patient has bilateral pneumonia with it being more visible on the right side than the left. The patient also has a Citrobacter urinary tract infection. MEDICATIONS: The patient has been receiving vancomycin now for 12 days, meropenem for 11 days, and Levaquin for 8 days. The patient also is receiving steroids. PHYSICAL EXAMINATION: Vital Signs: Temperature is 98.6 degrees, pulse 97, respirations 23, blood pressure 161/85. General: This is an obese, ill-appearing, elderly female. She is wearing a BiPAP mask at this time and appears to be sleeping. Lungs: There were bilateral rhonchi but no rales or wheezes. Cardiovascular: Heart rate was rapid and regular. Abdomen: Soft and nontender. LAB AND X-RAY: The patient's x-ray today shows diffuse opacity, more prominent on the right side. The blood gases show a pH of 7.43, a PO2 of 61, and a pCO2 of 49. There is no CBC or BMP for today. ASSESSMENT AND PLAN: The patient has pneumonia and urinary tract infection. My plan is to continue with the current antibiotics even though she has been on them a relatively long period of time. The patient's comorbidities include lung cancer, stroke, gastroesophageal reflux disease, COPD, and a history of cigarette smoking. cc: Robert Hernandez MD
[2016-10-11] MEDS: LIPITOR PO SCH (20:35)
[2016-10-11] MEDS: CALTRATE 600 + D PO SCH (20:35)
[2016-10-11] MEDS: LEVAQUIN 500 MG/D5W 500 MG/100 ML IVPB IV SCH (20:35)
[2016-10-11] MEDS: VANCOMYCIN 2,000 MG in NS 500 ML IV SCH (23:58)
[2016-10-12] MEDS: ATIVAN IV PRN ×4 (02:06→19:47)
[2016-10-12] MEDS: CARDIZEM 125 MG in NS 100 ML IV SCH ×3 (02:49→22:55)
[2016-10-12] MEDS: DUONEB (A & A) INH SCH ×6 (03:07→22:42)
[2016-10-12 04:37] LABS: ALLEN TEST YES; BE 5.5 mmoll (-3.0-3.0); BLOOD TYPE ARTERIAL; DRAW SITE R RADIAL; METHB 1.2 % (0.0-1.5); O2(CT) 12.5 mL/dL (15.0-23.0); PCO2(98.6) 46 mmHg (35-45); PO2(98.6) 64 mmHg (60-100); SAMPLE BLOOD; SAO2 94.5 % (95.0-100.0); THB 9.7 g/dL (11.5-17.4); pH(98.6) 7.43 (7.35-7.45)
[2016-10-12 04:38] LABS: MODALITY BI PAP
[2016-10-12] MEDS: PRILOSEC PO SCH (06:12)
[2016-10-12] MEDS: MERREM 1 GM in NS 50 ML IV SCH ×3 (06:12→22:14)
[2016-10-12] MEDS: SYNTHROID PO SCH (06:13)
--- NOTE | 2016-10-12 06:32 | Diag Imaging Result Doc PS360 ---
EXAM: CHEST-1 VIEW HISTORY: SOB TECHNIQUE: Portable AP COMPARISON: 10/11/2016 FINDINGS: No change in the right-sided PICC line. There are infiltrates throughout the right lung. The heart is not enlarged. I believe there is a small left-sided pleural effusion. The overall appearance of the chest is quite similar to that of the prior exam. IMPRESSION: No interval improvement. Electronically signed by Dylon Fajardo 10/12/2016 6:29 AM
[2016-10-12] MEDS: SPIRIVA INH SCH (07:52)
[2016-10-12] MEDS: DULERA 100 MCG/5 MCG INHALER INH SCH ×2 (07:52→19:10)
[2016-10-12] MEDS: LASIX IV SCH (09:32)
[2016-10-12] MEDS: LOVENOX SUBQ SCH ×2 (09:32→21:55)
[2016-10-12] MEDS: CENTRUM SILVER PO SCH (09:32)
[2016-10-12] MEDS: SOLU-MEDROL IV SCH ×3 (09:32→23:04)
[2016-10-12] MEDS: FLONASE NAS SCH ×2 (09:32→22:00)
[2016-10-12] MEDS: PLAVIX PO SCH (09:33)
[2016-10-12] MEDS: ZYRTEC PO SCH (09:33)
[2016-10-12] MEDS: ZOLOFT PO SCH (09:33)
[2016-10-12] MEDS: TESSALON PO SCH ×3 (09:33→17:06)
[2016-10-12] MEDS: MIRALAX PO SCH ×2 (09:34→22:00)
[2016-10-12] MEDS: AGGRENOX PO SCH (09:48)
[2016-10-12] MEDS: MUCOMYST 20% INH SCH ×3 (11:22→22:42)
[2016-10-12] MEDS ORDERED: HALDOL IV PRN (14:41)
--- NOTE | 2016-10-12 16:42 | PROGRESS NOTE ---
DATE: 10/12/2016 SUBJECTIVE: Today Ms. Alvarenga referred to be doing a little better. The was at the bedside at the time of the encounter. OBJECTIVE: Vital signs: Blood pressure is 128/68, pulse of 102, respirations 25, temperature 97.4 degrees. General: Ms. Alvarenga is a 65-year-old morbidly obese female. She is in bed, not in any remarkable distress. HEENT: Mucosa is pink and moist. Anicteric. Acyanotic. Neck: Supple. Chest: Air entry is bilaterally reduced. There are still bilateral diffuse crackles. Cardiovascular: Regular rate and rhythm. Abdomen: Soft, nontender. Extremities: No pedal edema. 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 No focal neurological deficit. LABORATORY DATA: No laboratory work today. A chest x-ray this morning shows no interval improvement. There are infiltrates throughout the right lung. ASSESSMENT: 1. Acute hypoxemic respiratory failure with superimposed acute respiratory distress syndrome. 2. Diastolic heart failure. 3. Paroxysmal atrial fibrillation. 4. History of chronic obstructive pulmonary disease. 5. Hypothyroidism. 6. Multifocal pneumonia, more predominant in the right. Patient continues on nebulizations, antibiotics, pulmonary toilette and noninvasive ventilatory support in (with BiPAP). Today, I had a conversation with Dr. Alcaraz, the medical education specialist on the case about Intubation. He is closely observing Ms. Alvarenga on the noninvasive ventilation and will intubate if the patient does not show any remarkable improvement in terms of her oxygenation and also if patient starts to deteriorate from the mentation standpoint and ventilatory standpoint. cc: MD TODD Crooks
--- NOTE | 2016-10-12 19:02 | PROGRESS NOTE ---
DATE: 10/12/2016 PRESENT ILLNESS: The patient has pneumonia which is bilateral and more prominent on the right side than the left. She also has a Citrobacter urinary tract infection which most likely is asymptomatic. MEDICATIONS: The patient has been receiving vancomycin for 13 days, meropenem for 12 days and Levaquin for 9 days. Patient also is receiving steroids. PHYSICAL EXAMINATION: Vital Signs: Temperature is 97.6 degrees, pulse 99, respirations 23, blood pressure 140/72. General: This is an ill-appearing, obese, elderly female. She currently is wearing a BiPAP mask. Lungs: Clear to auscultation. Cardiovascular: Heart rate is regular. Abdomen: Soft and nontender. LABORATORY AND X-RAY: Chest x-ray shows stable findings with early right lung opacities present and larger than the opacities in the left lung. The patient's blood gases today showed a pH of 7.43, a PO2 of 64, pCO2 of 46. There is no CBC or BMP today. ASSESSMENT AND PLAN: 1. Patient has pneumonia and a urinary tract infection. I plan to continue the current antibiotics. I have ordered for tomorrow a CBC and a BMP. 2. Comorbidities include lung cancer, stroke, gastroesophageal reflux disease, chronic obstructive pulmonary disease and a history of cigarette smoking. cc: Robert Hernandez MD
[2016-10-12] MEDS: LEVAQUIN 500 MG/D5W 500 MG/100 ML IVPB IV SCH (19:29)
[2016-10-12] MEDS ORDERED: NORCURON ONE (20:39)
[2016-10-12] MEDS ORDERED: VERSED ONE (20:39)
[2016-10-12] MEDS ORDERED: AMIDATE ONE (20:39)
[2016-10-12] MEDS ORDERED: QUELICIN ONE (20:40)
[2016-10-12] MEDS ORDERED: DIPRIVAN 1% 2,000 MG/200 ML BOTTLE ONE (20:44)
[2016-10-12] MEDS ORDERED: NORCURON IV ONE (21:04)
[2016-10-12] MEDS ORDERED: DOPAMINE 800 MG/D5W 800 MG/500 ML IV.SOLN IV SCH (21:09)
[2016-10-12] MEDS ORDERED: LASIX IV ONE (21:17)
--- NOTE | 2016-10-12 21:17 | Diag Imaging Result Doc PS360 ---
EXAM: CHEST-PORTABLE HISTORY: vent placement TECHNIQUE: AP portable at 2100 COMMENT: There is diffuse alveolar opacity of the right lung. There is an endotracheal tube with its tip slightly below the thoracic inlet. Compared to the previous examination of this date at 0535 the density of the opacification in the lower mid right lung has increased. IMPRESSION: Slightly worsened right pneumonia. Electronically signed by Pako Chow 10/12/2016 9:15 PM
[2016-10-12] MEDS: NIMBEX 80 MG in NS 160 ML IV SCH (21:43)
[2016-10-12 21:51] LABS: ALLEN TEST YES; BE 3.9 mmoll (-3.0-3.0); BLOOD TYPE ARTERIAL; DRAW SITE R RADIAL; O2(CT) 11.8 mL/dL (15.0-23.0); PO2(98.6) 56 mmHg (60-100); SAMPLE BLOOD; SAO2 87.5 % (95.0-100.0); SRATE 20 BPM; THB 9.9 g/dL (11.5-17.4); TVOL 450 mL; pH(98.6) 7.29 (7.35-7.45)
[2016-10-12 21:53] LABS: MODALITY VENTILATOR; PCO2(98.6) 66 mmHg (35-45)
[2016-10-12] MEDS: LIPITOR PO SCH (21:56)
[2016-10-12] MEDS ORDERED: SOLU-MEDROL IV ONE (21:57)
[2016-10-12] MEDS: CALTRATE 600 + D PO SCH (21:59)
[2016-10-12] MEDS ORDERED: NS 500 ML IV SCH (22:30)
[2016-10-12 22:32] LABS: ALLEN TEST YES; BE 3.4 mmoll (-3.0-3.0); BLOOD TYPE ARTERIAL; DRAW SITE L RADIAL; METHB 0.7 % (0.0-1.5); O2(CT) 12.1 mL/dL (15.0-23.0); PO2(98.6) 63 mmHg (60-100); SAMPLE BLOOD; SAO2 91.4 % (95.0-100.0); SRATE 14 BPM; THB 9.7 g/dL (11.5-17.4); TVOL 600 mL; pH(98.6) 7.25 (7.35-7.45)
[2016-10-12 22:33] LABS: MODALITY VENTILATOR
[2016-10-12 22:34] LABS: PCO2(98.6) 73 mmHg (35-45)
[2016-10-12] MEDS: DIPRIVAN 1% 1,000 MG/100 ML BOTTLE IV SCH (23:33)
[2016-10-13] MEDS: DIPRIVAN 1% 1,000 MG/100 ML BOTTLE IV SCH ×6 (02:24→13:19)
[2016-10-13 04:31] LABS: ALLEN TEST YES; BE 0.6 mmoll (-3.0-3.0); BLOOD TYPE ARTERIAL; DRAW SITE R RADIAL; METHB 0.7 % (0.0-1.5); O2(CT) 12.6 mL/dL (15.0-23.0); PO2(98.6) 73 mmHg (60-100); SAMPLE BLOOD; SAO2 94.2 % (95.0-100.0); SRATE 14 BPM; THB 9.8 g/dL (11.5-17.4); TVOL 600 mL; pH(98.6) 7.21 (7.35-7.45)
[2016-10-13 04:32] LABS: MODALITY VENTILATOR; PCO2(98.6) 74 mmHg (35-45)
[2016-10-13 05:20] LABS: CALCIUM 9.3 mg/dL (8.8-10.2); POTASSIUM 4.6 mmol/L (3.5-5.1); TOTAL BILIRUBIN 0.63 mg/dL (0.20-1.00); TOTAL PROTEIN 6.5 g/dL (6.3-8.3)
[2016-10-13 05:33] LABS: BASO% 0.3 % (0.0-0.8); EOS# 0.03 X1000 (0.0-0.7); EOS% 0.1 % (0.0-10.0); HEMATOCRIT 29.9 % (37.0-47.0); HEMOGLOBIN 9.2 g/dL (12.0-16.0); IMM GRAN# 1.66 X1000 (0.0-0.04); IMM GRAN% 4.9 % (0.0-0.5); LYMPH% 2.4 % (20.5-51.1); MANUAL DIFF NEEDED? YES; MCH 30.3 PG (27-31); MCHC 30.8 g/dL (33-37); MCV 98.4 FL (81-99); MONO# 1.02 X1000 (0.11-0.59); MPV 11.2 FL (7.4-10.4); NEUT% 89.3 % (42.2-75.2); PLT 391 X1000 (130-400); RBC 3.04 XMIL (4.2-5.4)
[2016-10-13 05:38] LABS: LYMPHS 2 % (21-51)
[2016-10-13] MEDS: NIMBEX 80 MG in NS 160 ML IV SCH (05:58)
[2016-10-13] MEDS: MERREM 1 GM in NS 50 ML IV SCH ×3 (06:34→22:51)
[2016-10-13] MEDS: SYNTHROID PO SCH (06:35)
[2016-10-13] MEDS: PRILOSEC PO SCH (06:35)
--- NOTE | 2016-10-13 07:24 | Diag Imaging Result Doc PS360 ---
EXAM: CHEST-1 VIEW HISTORY: SOB TECHNIQUE: Erect AP portable at 0540 COMMENT: There is an endotracheal tube with its tip slightly below the thoracic inlet. There is a PICC line on the right with its tip in the right atrium. There is diffuse alveolar opacity throughout the right lung. There is some apparent volume loss on the left. These findings have not changed significantly since 10/11/2016. IMPRESSION: Pulmonary edema versus pneumonia on the right, stable. Electronically signed by Pako Chow 10/13/2016 7:22 AM
[2016-10-13] MEDS: DUONEB (A & A) INH SCH ×6 (07:39→22:59)
[2016-10-13] MEDS: SPIRIVA INH SCH (07:46)
[2016-10-13] MEDS: DULERA 100 MCG/5 MCG INHALER INH SCH (07:46)
[2016-10-13] MEDS: SOLU-MEDROL IV SCH ×3 (08:40→23:17)
[2016-10-13] MEDS: PLAVIX PO SCH (08:40)
[2016-10-13] MEDS: CENTRUM SILVER PO SCH (08:40)
[2016-10-13] MEDS: LOVENOX SUBQ SCH ×2 (08:40→21:44)
[2016-10-13] MEDS: MIRALAX PO SCH ×2 (08:40→21:44)
[2016-10-13] MEDS: FLONASE NAS SCH ×2 (08:40→21:43)
[2016-10-13] MEDS: LASIX IV SCH (08:40)
[2016-10-13] MEDS: AGGRENOX PO SCH (08:40)
[2016-10-13] MEDS: ZOLOFT PO SCH (08:41)
[2016-10-13] MEDS: TESSALON PO SCH (08:41)
[2016-10-13] MEDS: ZYRTEC PO SCH (08:41)
[2016-10-13] MEDS: MUCOMYST 20% INH SCH ×3 (09:11→22:59)
[2016-10-13] MEDS ORDERED: LASIX IV SCH (09:39)
--- NOTE | 2016-10-13 10:08 | Diag Imaging Result Doc PS360 ---
EXAM: CHEST/ABD TUBE PLACEMENT HISTORY: NGT placement TECHNIQUE: AP portable supine for NG tube placement at 0955 COMMENT: The NG tube tip is in the stomach in the left upper quadrant. IMPRESSION: NG tube in the stomach. Electronically signed by Pako Chow 10/13/2016 10:06 AM
--- NOTE | 2016-10-13 10:54 | PROGRESS NOTE ---
DATE: 10/13/2016 SUBJECTIVE: Today, Ms. Alvarenga developed an acute hypoxemic respiratory failure last night and had to be intubated. This morning, she is intubated, paralyzed, and sedated. She is not able to give any interval history. OBJECTIVE: Vital Signs: Blood pressure is 121/54, pulse is 74, respiration is 14, temperature is 96.1 degrees. Patient is saturating 96% on 100% of mechanical ventilation. Ms. Alvarenga is a 65- year-old female. She is in bed, intubated, seems to be synchronizing well with the ventilator. HEENT: Mucosa is pink and moist. Anicteric. Acyanotic. Neck is supple. Chest: Air entry is bilaterally reduced. There are transmitted sounds from the ventilator in the lung crabtree and sounds to be some expiratory rhonchi as well. Cardiovascular: Regular rate and rhythm. Abdomen is soft. Extremities: No pedal edema. 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 A chest x-ray this morning shows pulmonary edema versus pneumonia on the right which is stable. LABORATORY DATA: WBC is 33.76, hemoglobin is 9.2, platelet count is 391,000. There is no bands on peripheral smear. Chemistry is reviewed. Sodium is 151. Potassium is 4.6, chloride is 111. AST 63, ALT is 57. I's and O's. Urine output is 2,500. The patient has an accumulative negative balance of 14,884. ABGs: pH 7.21. PCO2 is 74, PO2 is 73. Patient is currently on AC mode at a rate of 14. FiO2 is 100%. Tidal volume is 600 with PEEP of 14. CURRENT MEDICATIONS: 1. Mucomyst for inhalation. 2. Albuterol and ipratropium DuoNebs q. 4. 3. Lipitor 80 mg daily. 4. Clopidogrel 75 mg daily. 5. Diltiazem drip. 6. Lovenox 120 b.i.d. 7. Labetalol p.r.n. 8. Levofloxacin 500 q. 24; this was started on 07/04/2016; today is day 9. 9. Meropenem 1 g q. 8. Today is day 14 on meropenem. 10. Vancomycin, day 14. ASSESSMENT: 1. Acute respiratory distress syndrome. The patient was initially on BiPAP. Unfortunately, her respiratory status got worse overnight and she had to be intubated. Currently under the vent. Vent management by Pulmonary Medicine. 2. Diastolic heart failure.Still has fluid in the lungs. Will continue diuretics 3. History of chronic obstructive pulmonary disease. stable 4. Multifocal pneumonia, more predominantly on the right. Patient is on antibiotics for the past 14 days. Infectious Disease on board. 6. Paroxysmal atrial fibrillation, currently rate controlled. Patient is on diltiazem drip and Lovenox for stroke prophylaxis. 7. History of coronary artery disease. Patient was on clopidogrel, dipyridamole , and aspirin. We have discontinued the dipyridamole with aspirin, continue only on the clopidogrel and the statin medication. We have also started the patient on stress ulcer prophylaxis. 8. Hypernatremia likely secondary to diuretic side effects. We are going to reduce the dose of diuretic to 40 once daily. PLAN: We put in an NG tube to decompress the stomach and also get some of her p.o. medications down. If patient tolerates her medications without any signs of aspiration, we will start her on some tube feedings. White cell count is a little elevated. She is, however, on triple antibiotic therapy. We will be awaiting ID review today and go from there. cc: Malvin Puckett MD MTDD
[2016-10-13] MEDS: PROTONIX IV SCH (11:06)
[2016-10-13] MEDS: SODIUM CHLORIDE 0.9% INJ SCH (11:06)
--- NOTE | 2016-10-13 11:50 | EKG Report ---
Test Performed on : 10/13/2016 10:01:59 AM Test Reason : CCU. Not ordered in [place] Blood Pressure : / mmHG Vent. Rate : 128 BPM Atrial Rate : 129 BPM P-R Int : 000 ms QRS Dur : 104 ms QT Int : 358 ms P-R-T Axes : 000 -43 106 degrees QTc Int : 522 ms Atrial fibrillation. with rapid ventricular response. Left axis deviation Nonspecific ST and T wave abnormality Abnormal ECG When compared with ECG of 01-OCT-2016 09:58, ST now depressed in Anterolateral leads Confirmed by Joey Castano DO ([id number]) on 10/16/2016 4:34:43 PM
[2016-10-13] MEDS ORDERED: LEVOPHED 8 MG in D5 1/2 NS 250 ML IV SCH (14:45)
[2016-10-13] MEDS: MORPHINE IV PRN (15:01)
[2016-10-13] MEDS: CARDIZEM 125 MG in NS 100 ML IV SCH ×2 (15:04→23:57)
[2016-10-13] MEDS ORDERED: NEO-SYNEPHRINE 50 MG in NS 250 ML IV SCH (15:30)
[2016-10-13 15:45] LABS: HEMATOCRIT 27.2 % (37.0-47.0); HEMOGLOBIN 8.3 g/dL (12.0-16.0)
[2016-10-13] MEDS: ATIVAN 20 MG in NS 190 ML IV SCH ×2 (16:10→22:51)
--- NOTE | 2016-10-13 19:01 | PROGRESS NOTE ---
DATE: 10/13/2016 PRESENT ILLNESS: The patient has predominantly a right sided pneumonia. MEDICATIONS: The patient has been receiving vancomycin for 14 days. Meropenem for 13 days and Levaquin for 10 days. Patient also has been getting steroids. PHYSICAL EXAMINATION: Vital Signs: Temperature is 96.4 degrees. Pulse 85, respirations 16, blood pressure 115/53. General: This is an ill-appearing elderly female. She is intubated and sedated. Lungs: There were bilateral rhonchi. Cardiovascular: Heart rate was regular. Abdomen: Soft and nontender. Ear, nose and throat: Patient has an orotracheal tube down and an NG tube down. LABORATORY AND X-RAY: CBC today shows a white count of 33,760, hemoglobin 8.3 and platelet count 391,000. Creatinine is 1.1. GFR is 50. Blood gases show a pH of 7.21, PO2 of 73 and a pCO2 of 74. Chest x-ray shows a right-sided diffuse opacity. ASSESSMENT AND PLAN: 1. Patient has pneumonia. For now, I plan to continue the antibiotics even though her lung has not improved and the white count is high. 2. Comorbidities in this patient include lung cancer, stroke, gastroesophageal reflux disease, chronic obstructive pulmonary disease and a history of cigarette smoking. cc: Robert Hernandez MD
[2016-10-13] MEDS: LIPITOR PO SCH (21:44)
[2016-10-13] MEDS: LEVAQUIN 500 MG/D5W 500 MG/100 ML IVPB IV SCH (21:49)
[2016-10-13] MEDS: VANCOMYCIN 2,000 MG in NS 500 ML IV SCH (22:51)
[2016-10-14] MEDS ORDERED: NEO SYNEPHRINE NAS ONE (00:55)
[2016-10-14 01:24] LABS: BASO% 0.3 % (0.0-0.8); EOS# 0.02 X1000 (0.0-0.7); EOS% 0.1 % (0.0-10.0); HEMATOCRIT 24.8 % (37.0-47.0); HEMOGLOBIN 7.5 g/dL (12.0-16.0); IMM GRAN# 1.84 X1000 (0.0-0.04); IMM GRAN% 5.9 % (0.0-0.5); LYMPH# 0.77 X1000 (1.2-3.4); LYMPH% 2.5 % (20.5-51.1); MANUAL DIFF NEEDED? NO; MCH 29.3 PG (27-31); MCHC 30.2 g/dL (33-37); MCV 96.9 FL (81-99); MONO# 1.27 X1000 (0.11-0.59); MONO% 4.1 % (1.7-9.3); MPV 10.5 FL (7.4-10.4); NEUT% 87.1 % (42.2-75.2); PLT 367 X1000 (130-400); RBC 2.56 XMIL (4.2-5.4)
[2016-10-14 01:26] LABS: INR 1.13; PTT 33.6 Seconds (22.0-36.0)
[2016-10-14] MEDS: ATIVAN 20 MG in NS 190 ML IV SCH ×5 (02:00→20:37)
[2016-10-14] MEDS: DUONEB (A & A) INH SCH ×6 (03:05→23:08)
[2016-10-14] MEDS ORDERED: NS 1,000 ML ONE (03:41)
--- NOTE | 2016-10-14 04:09 | PROGRESS NOTE ---
DATE: 10/14/2016 TIME: 0050 hours. HISTORY: The patient had an NG tube placed in her right nare earlier this afternoon. The ICU nurse assigned to the patient sonya reports that approximately 1 hour after this was inserted earlier in the day that the patient did begin to have some nose bleeding. She states this was minimal at first, though since she has arrived at 7 p.m. sonya, the patient's nose bleeding has worsened and is steadily oozing. Initially, we did try light anterior nasal packing as well as well as some external pressure, though the patient's nose still continued to bleed. We did place 2 sprays in each nare of phenylephrine, though even after administration of this, the patient's nose did continue to ooze. After consulting with Dr. Al, I did inform him of the patient's current status and did receive further instructions to remove the patient's NG tube and have a Rapid Rhino inflatable tamponade available at bedside if it did need to be placed. We did remove the patient's NG tube. We place some light anterior packed to her right nare and applied pressure, though her nose continue to ooze. I did ultimately place a 7.5 cm anterior/ posterior Rapid Rhino into the patient's right nare. It was inserted parallel to the septal floor without difficulty, and approximately 2 mL of air was inserted. At this time, the patient's bleeding does seem to have reduced. We did also check a CBC as well as coagulation studies. Her coagulation studies are within normal limits, though her hemoglobin and hematocrit had decreased from previous reading down to a hemoglobin of 7.5 and hematocrit of 24.8. We have placed orders to transfuse the patient with 2 units of packed red blood cells. We have also placed her on Lovenox on hold at this time and we will re-evaluate her later on this morning. Dictated by JAH Monterroso for Kayy Al MD Seen and examined and discussed plan of care with PRESCHOOL TEACHER'S ASSISTANT. cc: Kayy Al MD [facility]ITALAn[facility]
[2016-10-14 04:16] LABS: ALLEN TEST YES; BE 2.8 mmoll (-3.0-3.0); BLOOD TYPE ARTERIAL; DRAW SITE R RADIAL; METHB 1.2 % (0.0-1.5); O2(CT) 18.1 mL/dL (15.0-23.0); PO2(98.6) 130 mmHg (60-100); SAMPLE BLOOD; SAO2 99.5 % (95.0-100.0); SRATE 14 BPM; THB 13.2 g/dL (11.5-17.4); TVOL 600 mL; pH(98.6) 7.33 (7.35-7.45)
[2016-10-14 04:17] LABS: MODALITY VENTILATOR; PCO2(98.6) 57 mmHg (35-45)
--- NOTE | 2016-10-14 05:21 | Diag Imaging Result Doc PS360 ---
EXAM: CHEST/ABD TUBE PLACEMENT HISTORY: OG Tube Placement TECHNIQUE: COMPARISON: 10/13/2016 FINDINGS: The nasogastric tube continues to overlie the esophagus and stomach. The position is unchanged from the prior study. Very little other information is obtained of the abdomen. There are infiltrates in the right lung. IMPRESSION: Nasogastric tube overlies the esophagus and stomach. Electronically signed by Dylon Fajardo 10/14/2016 5:19 AM
[2016-10-14] MEDS: MERREM 1 GM in NS 50 ML IV SCH ×4 (06:37→23:20)
[2016-10-14] MEDS: PRILOSEC PO SCH (06:37)
[2016-10-14] MEDS: SYNTHROID PO SCH (06:48)
[2016-10-14 08:02] LABS: MANUAL DIFF NEEDED? YES; MCHC 31.4 g/dL (33-37); MCV 94.8 FL (81-99); NEUT% 85.8 % (42.2-75.2)
[2016-10-14 08:27] LABS: ALBUMIN 2.7 g/dL (3.5-5.0); CALCIUM 8.4 mg/dL (8.8-10.2); POTASSIUM 4.1 mmol/L (3.5-5.1); TOTAL BILIRUBIN 0.47 mg/dL (0.20-1.00); TOTAL PROTEIN 5.9 g/dL (6.3-8.3)
[2016-10-14 08:50] LABS: BASO% 0.5 % (0.0-0.8); EOS# 0.11 X1000 (0.0-0.7); EOS% 0.4 % (0.0-10.0); HEMATOCRIT 29.3 % (37.0-47.0); HEMOGLOBIN 9.2 g/dL (12.0-16.0); IMM GRAN# 1.85 X1000 (0.0-0.04); LYMPH% 3.3 % (20.5-51.1); MCH 29.8 PG (27-31); MONO# 1.24 X1000 (0.11-0.59); MPV 11.4 FL (7.4-10.4); PLT 356 X1000 (130-400); RBC 3.09 XMIL (4.2-5.4)
[2016-10-14] MEDS: CARDIZEM 100 MG/NS 100 MG/100 ML IVPB IV SCH ×3 (08:57→20:38)
[2016-10-14] MEDS: SOLU-MEDROL IV SCH ×3 (08:57→23:20)
[2016-10-14 08:58] LABS: BANDS 2 % (0-1); LYMPHS 5 % (21-51)
[2016-10-14] MEDS: CENTRUM SILVER PO SCH (09:00)
[2016-10-14] MEDS: MIRALAX PO SCH ×2 (09:01→23:21)
[2016-10-14] MEDS: LOVENOX SUBQ SCH ×2 (09:01→23:22)
[2016-10-14] MEDS: D5W 1,000 ML IV SCH (09:12)
[2016-10-14] MEDS: PLAVIX PO SCH (09:13)
[2016-10-14] MEDS: FLONASE NAS SCH ×2 (09:36→23:22)
[2016-10-14] MEDS: SODIUM CHLORIDE 0.9% INJ SCH (11:02)
[2016-10-14] MEDS: PROTONIX IV SCH (11:02)
[2016-10-14] MEDS: MUCOMYST 20% INH SCH ×3 (11:11→21:00)
--- NOTE | 2016-10-14 11:31 | PROGRESS NOTE ---
DATE: 10/14/2016 SUBJECTIVE: Today Ms. Alvarenga continues to be intubated. The was at the bedside at the time of the interview. At the time of the encounter, there has not been any interval change overnight. OBJECTIVE: Vital signs: Blood pressure is 119/69, pulse 84, respirations 16, temperature is 97.9 degrees. General: Ms. Alvarenga is a 65-year-old female, morbidly obese with a BMI of 39.1. She is in bed. Continues to be intubated. HEENT: Mucosa is pink and moist. Anicteric. Acyanotic. Neck: Supple. Chest: Air entry is bilaterally reduced but no crepitations. Cardiovascular: Regular rate and rhythm. Abdomen: Soft. Extremities: No pedal edema. 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 She is on sedation with some Ativan but she is able to withdraw very actively to painful stimulation. Has normal cornea reflex and normal pupillary reflex. LABORATORY DATA: WBC is 30.76, hemoglobin is 9.2, platelet count is 356,000. Chemistry is reviewed. Sodium is 152, potassium is 4.1, chloride is 110, creatinine is up to 113. A chest x-ray this morning continues to show diffuse infiltrates in the right. ASSESSMENT: 1. Adult respiratory distress syndrome. Patient continues to be intubated. 2. Diastolic heart failure with pulmonary edema. This seems to have improved slightly. 3. Chronic obstructive pulmonary disease. 4. Multifocal pneumonia. More predominantly on the right. Patient continues to be on antibiotics. Infectious Disease is on board. 5. Paroxysmal atrial fibrillation. Patient is on diltiazem drip. Heart rate is better controlled. Lovenox had to be discontinued because of nasal bleed. 6. History of multiple cerebrovascular accident. Patient has been on clopidogrel and Aggrenox and both of these have been discontinued because of the nasal bleed. 7. Hypernatremia with acute kidney injury. The patient will be needing a free water, so I have discontinued the diuretics and I have started her on D5 water at 50 mL/h. We will repeat her electrolytes for this afternoon and make changes accordingly. We will also pay a very critical attention to her fluid status. cc: Malvin Puckett MD
[2016-10-14] MEDS: NS 500 ML IV SCH (14:30)
[2016-10-14 17:02] LABS: CALCIUM 8.4 mg/dL (8.8-10.2); POTASSIUM 4.4 mmol/L (3.5-5.1)
--- NOTE | 2016-10-14 17:55 | PROGRESS NOTE ---
DATE: 10/14/2016 SUBJECTIVE: Patient's respiratory failure progressed to point of requiring intubation, mechanical ventilation. She is currently sedated on ventilator. She has had significant secretions suctioned from her lungs following intubation and secretions appear hemorrhagic. OBJECTIVE: Vital signs: Blood pressure 122/64, heart rate 97 and regular, oxygen saturation 91% on FiO2 of 80%. Neck: Jugular venous distention cannot be appreciated. Chest: Auscultation of chest reveals coarse breath sounds bilaterally. Cardiac Exam: Reveals distant heart sounds, a regular rate and rhythm but no murmur or gallop. There is no evidence of edema. LAB DATA: Includes a white blood cell count 31.01, hematocrit 24.8, BUN 93, creatinine 1.4. IMPRESSION: 1. Hypoxemic respiratory failure. Suspect pneumonia and adult respiratory distress syndrome most likely responsible as patient did not improve with diuresis to the point of prerenal azotemia. 2. Chronic obstructive pulmonary disease. 3. Obesity. 4. Chronic diastolic heart failure. 5. Paroxysmal atrial fibrillation. 6. History of previous cerebrovascular accident. 7. History of small cell lung cancer treated with radiation therapy and chemotherapy 5 years ago. RECOMMENDATIONS: 1. Continue supportive care and antibiotic therapy targeting pneumonia. 2. Continue to monitor volume status. At present patient appears to be relative intravascular volume depleted. 3. Conservative cardiovascular management overall. Dr. Smith available if needed over the weekend. cc: Salomon Thurman MD
--- NOTE | 2016-10-14 19:25 | PROGRESS NOTE ---
DATE: 10/14/2016 PRESENT ILLNESS: The patient has pulmonary edema and also I think there is an element of pneumonia as well. MEDICATIONS: The patient has been on vancomycin for 15 days. Meropenem for 14 days and Levaquin for 10 days. Patient also is on steroids. PHYSICAL EXAMINATION: Vital Signs: Temperature is 98.6, pulse 97, respirations 13, blood pressure 122/64. General: This is an ill-appearing elderly female. She is intubated and sedated. Lungs: There were bilateral rhonchi. Cardiovascular: Heart rate is regular. Abdomen: Soft and nontender. Extremities: Patient has a PICC in the right arm. The PICC site is not erythematous or swollen. LAB AND X-RAY: Today the CBC shows a white count decreased a little bit to 31,010, hemoglobin 7.5 and platelet count 367,000. Blood gases show a pH of 7.33, a pO2 of 130. A pCO2 of 57. Creatinine is 1.4. The GFR is 38. ASSESSMENT AND PLAN: The patient does have pulmonary venous congestion. I do think there is some element of pneumonia as well. There is very little if any improvement. My plan is to discontinue the antibiotics one at a time. Since the patient has been on vancomycin for the longest, I am going to discontinue it. COMORBIDITIES: Include lung cancer, stroke, gastroesophageal reflux disease, COPD and a history of cigarette smoking. cc: Robert Hernandez MD
[2016-10-14] MEDS: LEVAQUIN 500 MG/D5W 500 MG/100 ML IVPB IV SCH (20:37)
[2016-10-14] MEDS: LIPITOR PO SCH (20:50)
[2016-10-15] MEDS: LABETALOL IV PRN (01:03)
[2016-10-15] MEDS: ATIVAN 20 MG in NS 190 ML IV SCH ×2 (01:09→05:27)
[2016-10-15] MEDS: CARDIZEM 100 MG/NS 100 MG/100 ML IVPB IV SCH ×3 (03:01→22:50)
[2016-10-15] MEDS: DUONEB (A & A) INH SCH ×6 (03:29→23:25)
[2016-10-15 04:48] LABS: ALLEN TEST YES; BE 2.1 mmoll (-3.0-3.0); BLOOD TYPE ARTERIAL; DRAW SITE R RADIAL; O2(CT) 12.4 mL/dL (15.0-23.0); PO2(98.6) 103 mmHg (60-100); SAMPLE BLOOD; SAO2 99.1 % (95.0-100.0); SRATE 14 BPM; THB 9.1 g/dL (11.5-17.4); TVOL 600 mL; pH(98.6) 7.35 (7.35-7.45)
[2016-10-15 04:49] LABS: MODALITY VENTILATOR; PCO2(98.6) 51 mmHg (35-45)
[2016-10-15] MEDS: D5W 1,000 ML IV SCH ×4 (05:27→21:38)
[2016-10-15] MEDS: MORPHINE IV PRN ×3 (05:27→14:39)
[2016-10-15] MEDS: NS 500 ML IV SCH ×2 (05:27→15:52)
[2016-10-15 05:55] LABS: ALBUMIN 2.6 g/dL (3.5-5.0); POTASSIUM 4.7 mmol/L (3.5-5.1); TOTAL BILIRUBIN 0.36 mg/dL (0.20-1.00); TOTAL PROTEIN 5.2 g/dL (6.3-8.3)
[2016-10-15 06:26] LABS: BASO% 0.3 % (0.0-0.8); EOS# 0.05 X1000 (0.0-0.7); EOS% 0.2 % (0.0-10.0); HEMATOCRIT 27.1 % (37.0-47.0); HEMOGLOBIN 8.3 g/dL (12.0-16.0); IMM GRAN# 1.74 X1000 (0.0-0.04); IMM GRAN% 5.7 % (0.0-0.5); LYMPH# 0.61 X1000 (1.2-3.4); MANUAL DIFF NEEDED? YES; MCH 29.6 PG (27-31); MCHC 30.6 g/dL (33-37); MCV 96.8 FL (81-99); MONO# 0.98 X1000 (0.11-0.59); MONO% 3.2 % (1.7-9.3); MPV 11.4 FL (7.4-10.4); NEUT% 88.6 % (42.2-75.2); PLT 308 X1000 (130-400)
[2016-10-15] MEDS: MERREM 1 GM in NS 50 ML IV SCH ×3 (06:40→22:55)
[2016-10-15] MEDS: SYNTHROID PO SCH (06:42)
[2016-10-15] MEDS: PRILOSEC PO SCH (06:42)
[2016-10-15 07:15] LABS: BANDS 2 % (0-1); LYMPHS 2 % (21-51); MONO 6 % (1-9)
[2016-10-15] MEDS: MUCOMYST 20% INH SCH ×3 (07:50→21:01)
--- NOTE | 2016-10-15 08:46 | Diag Imaging Result Doc PS360 ---
CHEST-1 VIEW - 10/15/2016 INDICATION: SOB TECHNIQUE: COMPARISON: 10/14/2016 FINDINGS: Support lines and tubes are stable. Lung volumes are improved. There is improvement in the ill-defined interstitial infiltrate mostly throughout the right lung. Stable left basilar consolidation or effusion. No new infiltrates. Heart size remains top normal. IMPRESSION: Improvement from prior. Electronically signed by Bry Taylor 10/15/2016 8:44 AM
[2016-10-15] MEDS: SOLU-MEDROL IV SCH ×2 (09:01→15:52)
[2016-10-15] MEDS: PROTONIX IV SCH (09:04)
[2016-10-15] MEDS: CENTRUM SILVER PO SCH (09:05)
[2016-10-15] MEDS: FLONASE NAS SCH ×2 (09:05→20:30)
[2016-10-15] MEDS: MIRALAX PO SCH ×2 (09:05→20:38)
--- NOTE | 2016-10-15 11:22 | PROGRESS NOTE ---
DATE: 10/15/2016 SUBJECTIVE: Today, Ms. Alvarenga continues to be intubated but relatively stable. was at the bedside at the time of the interview. No acute changes overnight. OBJECTIVE: Vital Signs: Blood pressure is 123/57 with a pulse of 97, respiration is 13. The patient is saturating 95% on the current settings of the ventilator. General: Ms. Alvarenga is a 65- year-old female. She is in bed, intubated. Mucosa is pink and moist. Anicteric, acyanotic. Neck is supple. Nose: There is a tamponade in the right nostril due to previous bleeding. Chest: Air entry is bilaterally reduced. There are some transmitted sounds bilaterally in the lung crabtree. Cardiovascular: Regular rate and rhythm. There is occasional extrasystolic beats. No murmurs. No rubs. Abdomen is soft, distended, but nontender. Bowel sounds are present. There is no hepatosplenomegaly. Extremities: No pedal edema. 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 Pupils are equal, and they are reactive to light. LABORATORY DATA: WBC is 30.45, hemoglobin is 8.3, platelet count of 308,000. There is only 2% of bands on peripheral smear. Sodium is 152, potassium is 4.7, chloride is 114. Creatinine is 1.4. AST and ALT have improved. A chest x-ray this morning shows improvement from prior. Lung volumes have improved, and there is some improvement in the ill-defined interstitial infiltrate mostly throughout the right lung. The patient's I's and O's: Urine output 1400. Patient has a negative balance of 12,389. ASSESSMENT: 1. Acute respiratory distress syndrome. The patient continues to be intubated. She seems to be stable. Current vent settings are FiO2 of 80%. This is an improvement from yesterday which was 100%. Rest of settings are unchanged, and chest x-ray this morning shows some improvement. 2. Diastolic heart failure with pulmonary edema, improving. 3. Multifocal pneumonia predominantly on the right side. Chest x-ray this morning shows some improvement, however, white cell count continues to be high. The patient is currently on levofloxacin. Today is day 12 on that. The patient is also on meropenem. Vancomycin has been discontinued. 4. Paroxysmal atrial fibrillation currently rate controlled and rhythm controlled as well. There is some occasional extrasystolic beats. Patient is on diltiazem drip and follows up with Cardiology. 5. Hypernatremia with acute kidney injury. We will increase the D5 water to 75 mL per hour. Recheck on her electrolytes for this afternoon. 6. History of multiple cerebrovascular disease. 7. Suspected gastrointestinal and upper airway (mucosal bleeding likely due to anti-platelet and anti-coagulant therapy). The patient was on clopidogrel, Aggrenox, and Lovenox for multiple cardiovascular diseases; however, because of the bleeding, we had to discontinue all of them. We will also remove the nasal tampon since it has been there for the past 24 hours. So, in general, I think Ms. Alvarenga is critically sick but relatively stable. We will continue with the current antibiotics, IV fluids. The rate has been increased. We will continue with the other care management. I have explained the plan with the who was at the bedside. We will also continue with the tube feedings that were started yesterday. cc: Malvin Puckett MD
[2016-10-15] MEDS: HUMULIN R SUBQ SCH ×3 (12:00→20:36)
[2016-10-15] MEDS: LEVAQUIN 500 MG/D5W 500 MG/100 ML IVPB IV SCH (20:14)
[2016-10-15] MEDS: LIPITOR PO SCH (20:30)
[2016-10-16] MEDS: SOLU-MEDROL IV SCH ×4 (01:36→23:45)
[2016-10-16] MEDS: DUONEB (A & A) INH SCH ×6 (04:01→23:28)
[2016-10-16 05:02] LABS: ALLEN TEST YES; BE 0.4 mmoll (-3.0-3.0); BLOOD TYPE ARTERIAL; DRAW SITE R RADIAL; MODALITY VENTILATOR; O2(CT) 19.2 mL/dL (15.0-23.0); PCO2(98.6) 61 mmHg (35-45); PO2(98.6) 76 mmHg (60-100); SAMPLE BLOOD; SAO2 97.3 % (95.0-100.0); SRATE 14 BPM; THB 14.5 g/dL (11.5-17.4); TVOL 500 mL; pH(98.6) 7.28 (7.35-7.45)
[2016-10-16 05:48] LABS: BASO% 0.2 % (0.0-0.8); EOS# 0.01 X1000 (0.0-0.7); HEMATOCRIT 28.8 % (37.0-47.0); HEMOGLOBIN 8.6 g/dL (12.0-16.0); IMM GRAN# 1.33 X1000 (0.0-0.04); IMM GRAN% 3.9 % (0.0-0.5); LYMPH# 0.49 X1000 (1.2-3.4); LYMPH% 1.4 % (20.5-51.1); MANUAL DIFF NEEDED? YES; MCH 29.4 PG (27-31); MCHC 29.9 g/dL (33-37); MCV 98.3 FL (81-99); MONO# 1.27 X1000 (0.11-0.59); MONO% 3.7 % (1.7-9.3); MPV 11.5 FL (7.4-10.4); NEUT% 90.8 % (42.2-75.2); PLT 295 X1000 (130-400); RBC 2.93 XMIL (4.2-5.4)
[2016-10-16 05:55] LABS: CALCIUM 8.5 mg/dL (8.8-10.2); POTASSIUM 4.7 mmol/L (3.5-5.1)
[2016-10-16] MEDS: PRILOSEC PO SCH (06:11)
[2016-10-16] MEDS: CARDIZEM 100 MG/NS 100 MG/100 ML IVPB IV SCH ×4 (06:11→18:39)
[2016-10-16] MEDS: MERREM 1 GM in NS 50 ML IV SCH ×3 (06:11→22:05)
[2016-10-16 06:50] LABS: LYMPHS 4 % (21-51); MONO 2 % (1-9)
[2016-10-16] MEDS: SYNTHROID PO SCH (07:07)
[2016-10-16] MEDS: HUMULIN R SUBQ SCH ×4 (07:07→20:14)
[2016-10-16] MEDS: MUCOMYST 20% INH SCH ×3 (08:11→19:19)
[2016-10-16] MEDS: CENTRUM SILVER PO SCH (08:35)
[2016-10-16] MEDS: MIRALAX PO SCH ×2 (08:35→20:13)
[2016-10-16] MEDS: FLONASE NAS SCH ×2 (09:04→20:14)
--- NOTE | 2016-10-16 09:04 | Diag Imaging Result Doc PS360 ---
CHEST-1 VIEW - 10/16/2016 INDICATION: SOB TECHNIQUE: COMPARISON: 10/15/2016 FINDINGS: Support lines and tubes are stable. Stable diffuse bilateral coarse interstitial infiltrates. Heart size is top normal. No pneumothorax or large effusion. IMPRESSION: No change from prior. These progressive infiltrates are unusual and atypical. Consider nonspecific interstitial pneumonitis, drug reaction, or connective tissue disorder. Electronically signed by Bry Taylor 10/16/2016 9:01 AM
[2016-10-16] MEDS: PROTONIX IV SCH (09:41)
--- NOTE | 2016-10-16 10:14 | PROGRESS NOTE ---
DATE: 10/16/2016 SUBJECTIVE: Today, Ms. Alvarenga continues to be critically sick. She is in the bed. Continues to be intubated. OBJECTIVE: Vital Signs: Blood pressure is 148/73, pulse of 91, respirations are 13, temperature is 97.6 degrees. Patient is saturating about 97% on mechanical ventilator. General: Ms. Alvarenga is a 65-year-old, female. She is in bed on the ventilator. HEENT: Mucosa is pink and moist. Anicteric. Acyanotic. Neck: Supple. Chest: Air entry is bilaterally reduced. There are some transmitted sounds from the ventilator. Cardiovascular: Regular rate and rhythm. Occasional extrasystolic beats. No murmur. Abdomen: Soft, not distended. Bowel sounds are present. No hepatosplenomegaly. Extremities: No pedal edema. AUTO ELECTRICIAN: Patient is intubated. She continues to be nonverbal. Does not open the eyes. Will move the lower extremities sluggishly to painful stimulation. Pupils are equal and they are reactive. The patient has good gag reflex. Laboratory Data: WBC is 34.18, hemoglobin is 8.6, platelet count of 296,000. There are no bands on periphery smear. Chemistry is reviewed. Sodium is 151, potassium is 4.7, chloride is 113, creatinine is 1.3. Is and Os: Patient has a urine output of 1540, has an accumulative negative balance of 10,344. A chest x-ray this morning shows stable diffuse bilateral coarse interstitial infiltrates. CURRENT MEDICATIONS: 1. Albuterol. 2. Lipitor. 3. D5 water at 75 mL per hour. 4. Diltiazem. 5. Labetalol p.r.n. 6. Levofloxacin 500 IV daily. Today is day 13. 7. Meropenem 1 g q.8. 8. Solu-Medrol 20 mg IV q.8. 9. Morphine p.r.n. 10. Pantoprazole 40 mg daily. ASSESSMENT: 1. Acute respiratory distress syndrome. The patient continues to be ventilator dependent. Currently on FiO2 of 80, with a PEEP of 14, ventilatory rate of 14, AC mode. Patient has a pH of 7.28, pCO2 of 61, PO2 of 73 on these settings. Pulmonary medicine is on board. Patient seems to be stable from a respiratory standpoint. 2. Diastolic heart failure with pulmonary edema, stable. 3. Multifocal pneumonia, predominantly on the right side. A chest x-ray this morning continues to show stable. No new infiltrates. Patient will continue with the current antibiotics. 4. Paroxysmal atrial fibrillation. The patient has been in and out of atrial fibrillation rhythm. We will continue with the diltiazem drip. 5. Hypernatremia with acute kidney injury. The patient does have a negative balance of fluid. We would continue with the D5 water. 6. Suspected mucosal bleed (nasal mucosa and possible gastrointestinal). Hemoglobin and hematocrit are stable. 7. Nutritional needs. Patient will continue to be on tube feedings. I understand that she did have some high residuals early this morning. We will add Reglan to help with the residuals. PLAN: In general, Ms. Alvarenga seems to be stable but critically sick. White count has gone up slightly today. She has been on the same antibiotics. We will do deep suctioning of the trachea and re-culture it to see if there has been any new developments. We will continue with the IV fluids. A deep suctioning of the trachea was done on the and there is yeast so I will go ahead and put the patient on micafungin just to cover for the yeast component to make sure that it is not the cause of the white count continuing to be high. In general, Ms. Alvarenga continued to be critical sick. cc: Malvin Puckett MD
[2016-10-16] MEDS: REGLAN IV SCH ×3 (11:14→22:06)
[2016-10-16] MEDS: D5W 1,000 ML IV SCH (11:14)
[2016-10-16] MEDS: BICITRA PO SCH ×2 (12:09→20:13)
[2016-10-16] MEDS: LASIX IV SCH ×2 (12:09→22:06)
[2016-10-16] MEDS: MYCAMINE 100 MG in NS 100 ML IV SCH (12:10)
[2016-10-16] MEDS: NS 500 ML IV SCH ×2 (12:17→14:12)
[2016-10-16] MEDS: MORPHINE IV PRN ×4 (15:27→23:01)
[2016-10-16] MEDS: LIPITOR PO SCH (20:13)
[2016-10-16] MEDS: LEVAQUIN 500 MG/D5W 500 MG/100 ML IVPB IV SCH (20:13)
[2016-10-17] MEDS: CARDIZEM 100 MG/NS 100 MG/100 ML IVPB IV SCH ×4 (01:02→20:39)
[2016-10-17] MEDS: DUONEB (A & A) INH SCH ×6 (03:29→23:25)
[2016-10-17] MEDS: D5W 1,000 ML IV SCH ×4 (04:07→18:08)
[2016-10-17] MEDS: REGLAN IV SCH ×4 (04:07→21:28)
[2016-10-17 04:40] LABS: ALLEN TEST YES; BLOOD TYPE ARTERIAL; DRAW SITE R RADIAL; METHB 0.9 % (0.0-1.5); PO2(98.6) 97 mmHg (60-100); SAMPLE BLOOD; SAO2 99.4 % (95.0-100.0); SRATE 14 BPM; THB 6.5 g/dL (11.5-17.4); TVOL 500 mL; pH(98.6) 7.39 (7.35-7.45)
[2016-10-17 04:42] LABS: MODALITY VENTILATOR; PCO2(98.6) 65 mmHg (35-45)
[2016-10-17 06:03] LABS: ALBUMIN 2.4 g/dL (3.5-5.0); CALCIUM 8.4 mg/dL (8.8-10.2); MAGNESIUM 2.8 mg/dL (1.5-2.7); POTASSIUM 4.5 mmol/L (3.5-5.1); TOTAL BILIRUBIN 0.38 mg/dL (0.20-1.00); TOTAL PROTEIN 5.6 g/dL (6.3-8.3)
[2016-10-17 06:04] LABS: HEMATOCRIT 26.4 % (37.0-47.0); HEMOGLOBIN 7.9 g/dL (12.0-16.0); MCH 30.5 PG (27-31); MCHC 29.9 g/dL (33-37); MCV 101.9 FL (81-99); RBC 2.59 XMIL (4.2-5.4)
[2016-10-17] MEDS: MERREM 1 GM in NS 50 ML IV SCH ×2 (06:05→14:32)
[2016-10-17] MEDS: HUMULIN R SUBQ SCH ×4 (06:05→20:38)
[2016-10-17] MEDS: SYNTHROID PO SCH (06:05)
--- NOTE | 2016-10-17 07:35 | Diag Imaging Result Doc PS360 ---
EXAM: CHEST-1 VIEW INDICATION: SOB TECHNIQUE: One view COMPARISON: 10/16/2016 FINDINGS: Support tubes and lines are in stable positions. The coarse interstitial infiltrates bilaterally are essentially stable. No new consolidation is appreciated. Cardiac silhouette is stable. IMPRESSION: Stable chest. Electronically signed by Nilesh Flynn 10/17/2016 7:32 AM
[2016-10-17] MEDS: SOLU-MEDROL IV SCH ×3 (07:48→23:39)
[2016-10-17] MEDS: MUCOMYST 20% INH SCH ×3 (08:11→19:35)
[2016-10-17] MEDS: MORPHINE IV PRN ×4 (09:16→23:39)
[2016-10-17] MEDS: CENTRUM SILVER PO SCH (09:16)
[2016-10-17] MEDS: PROTONIX IV SCH (09:17)
[2016-10-17] MEDS: SODIUM CHLORIDE 0.9% INJ SCH (09:17)
[2016-10-17] MEDS: LOVENOX SUBQ SCH (09:17)
[2016-10-17] MEDS: FLONASE NAS SCH ×2 (09:19→21:00)
[2016-10-17] MEDS: MIRALAX PO SCH ×2 (09:20→20:06)
[2016-10-17] MEDS: LANTUS SUBQ SCH (10:14)
[2016-10-17] MEDS ORDERED: INSULIN PEN NEEDLES ONE (10:15)
[2016-10-17] MEDS: MYCAMINE 100 MG in NS 100 ML IV SCH (10:50)
--- NOTE | 2016-10-17 11:02 | PROGRESS NOTE ---
DATE: 10/17/2016 SUBJECTIVE: Today, Ms. Alvarenga continues to be critically sick and intubated. Per the , who was at the bedside, there are no acute changes. OBJECTIVE: Vital Signs: Blood pressure is 130/51, pulse of 84, respirations 14, temperature 97 degrees, the patient is saturating 97% on mechanical ventilation. General: Ms. Alvarenga is a 65- year-old female. She is in bed, not seemingly distressed. She is synchronizing well with the ventilator. HEENT: Mucosa is pink and moist. Anicteric. Acyanotic. Neck: Supple. Chest: Air entry is bilaterally reduced. There are some transmitted sounds from the ventilator. There are also some posterior crepitations. Cardiovascular: Regular rate and rhythm. No murmurs, no rubs, no gallops. Abdomen: Soft, distended. There is no hepatosplenomegaly. There are a few bruises on the anterior abdominal wall from the Lovenox injections. Extremities: No pedal edema. GERIATRIC AIDE: The patient continues to be intubated. She is able to grimace her face to painful stimulation. Her pupils are active and they are reactive to light. LABORATORY DATA: WBC is slightly down to 29.99, hemoglobin is 7.9, platelet count 249,000. Chemistry: Sodium is 155, potassium is 4.5, chloride is 113, creatinine is down to 1.3, glucose is 221. IMAGING: X-ray this morning shows coarse interstitial infiltrates bilaterally, essentially stable. No new consolidations. CURRENT MEDICATIONS: Include: 1. Albuterol nebs. 2. Mucomyst inhalers. 3. Lipitor 80 mg at bedtime. 4. Diltiazem drip. 5. Lovenox 40 subcutaneously daily. 6. Insulin sliding scale. 7. Labetalol p.r.n. 8. Levofloxacin 500 every 24 hours. 9. Synthroid. 10. Prednisone 20 mg IV every 8 hours. 11. Reglan 5 mg IV every 6 hours. 12. Micafungin, which was started yesterday. ASSESSMENT: 1. Acute respiratory distress syndrome. The patient continues on mechanical ventilator. FiO2 continues to be 80. There have not been any remarkable changes in terms of the patient's needs. We will continue the current settings and await further recommendations from Pulmonary Medicine. 2. Diastolic heart failure with pulmonary edema, stable. 3. Multifocal pneumonia, predominantly on the right. Chest x-ray this morning continues to be stable. The sputum shows 2+ of yeast, so we have started Micafungin. The patient will continue with the levofloxacin, and we will be pending further recommendations from Infectious Disease. Of note, the white blood cell count has slightly improved today. 4. Hypernatremia with acute kidney injury. Creatinine is slightly improving. The patient continues to have adequate urine output. She is at a negative balance of 11,274. We are going to increase the D5 infusion to 100 mL/h. 5. Hyperglycemia. The patient is currently on sliding scale. We will add glargine 15 units for long-term insulin needs. 6. Suspected mucosal bleed, likely from antiplatelet therapy. These medications have been discontinued. The patient's hemoglobin and hematocrit have dropped this morning to 7.9. We are going to repeat this later this afternoon. If it goes below 7, we will transfuse the patient accordingly. 7. Nutritional needs. The patient is on tube feeding. 8. Code status. Up until now, the patient continues to be full code. I spoke extensively this morning with the . The is aware that there has not been any remarkable improvement on the chest x-ray, and the patient continues to be demanding a high percent of FiO2 to maintain adequate saturation. He is weighing the options of possible withdrawal of care, if that is the recommendation from the housing counselor. What he did tell me for sure is that Ms. Alvarenga did not want to be kept alive on ventilator, and if it comes down to tracheostomy, he would not to go that route. Will be pending Pulmonary Medicine evaluation today. cc: Malvin Puckett MD
--- NOTE | 2016-10-17 17:52 | PROGRESS NOTE ---
DATE: 10/17/2016 PRESENT ILLNESS: The patient has pulmonary venous congestion and I think there is an element of pneumonia as well. MEDICATIONS: The patient currently is on a combination of meropenem which is day 17 of its use, Levaquin which is day 13 of its use and micafungin. The patient also receives steroids. PHYSICAL EXAMINATION: Vital Signs: Temperature is 97.6 degrees, pulse 95, respirations 19, blood pressure 143/44. Lungs: Lungs had bilateral rhonchi. Cardiovascular: Heart rate was regular. Abdomen: Soft and nontender. Ear, nose, throat: Patient is intubated. Neurologic: Patient is sedated. ASSESSMENT AND PLAN: Patient has pulmonary venous congestion, possibly an ARDS-like picture and possibly pneumonia. Unfortunately there has been very little improvement. I am going to now discontinue both meropenem and micafungin, and the patient will be on Levaquin as a single drug. I do think that a good part of her leukocytosis is due to the fact that she is on steroids. COMORBIDITIES: Lung cancer, stroke, gastroesophageal reflux disease, COPD and a history of cigarette smoking. cc: Robert Hernandez MD
[2016-10-17] MEDS: LIPITOR PO SCH (20:06)
[2016-10-17] MEDS: LEVAQUIN 500 MG/D5W 500 MG/100 ML IVPB IV SCH (20:07)
[2016-10-18] MEDS: DUONEB (A & A) INH SCH ×6 (03:20→23:05)
--- NOTE | 2016-10-18 03:40 | PROGRESS NOTE ---
DATE: 10/17/2016 ADDENDUM LAB AND X-RAY STUDIES: [place] [address], hemoglobin 7.9 and platelet count 249,000. Blood gases showed a pH of 7.39, a pO2 of 97, and a pCO2 of 65. The patient's creatinine was 1.2. The GFR was 45. Liver function studies were normal. The patient had an DELMIS screen which was interpreted as positive. A chest x-ray for today showed coarse interstitial infiltrates bilaterally with no new consolidation. cc: Robert Hernandez MD
[2016-10-18] MEDS: MORPHINE IV PRN ×6 (04:23→23:22)
[2016-10-18] MEDS: REGLAN IV SCH ×4 (04:24→21:43)
[2016-10-18] MEDS: D5W 1,000 ML IV SCH (04:25)
[2016-10-18 04:53] LABS: ALLEN TEST YES; BE 9.1 mmoll (-3.0-3.0); BLOOD TYPE ARTERIAL; DRAW SITE R RADIAL; METHB 0.9 % (0.0-1.5); O2(CT) 14.2 mL/dL (15.0-23.0); PO2(98.6) 66 mmHg (60-100); SAMPLE BLOOD; SAO2 96.4 % (95.0-100.0); SRATE 14 BPM; THB 10.8 g/dL (11.5-17.4); TVOL 550 mL; pH(98.6) 7.39 (7.35-7.45)
[2016-10-18 04:54] LABS: MODALITY VENTILATOR; PCO2(98.6) 59 mmHg (35-45)
[2016-10-18 05:00] LABS: BASO% 0.1 % (0.0-0.8); EOS# 0.01 X1000 (0.0-0.7); HEMATOCRIT 26.1 % (37.0-47.0); HEMOGLOBIN 7.7 g/dL (12.0-16.0); IMM GRAN# 0.55 X1000 (0.0-0.04); LYMPH# 0.49 X1000 (1.2-3.4); LYMPH% 1.8 % (20.5-51.1); MANUAL DIFF NEEDED? YES; MCH 29.1 PG (27-31); MCHC 29.5 g/dL (33-37); MCV 98.5 FL (81-99); MONO# 0.96 X1000 (0.11-0.59); MONO% 3.5 % (1.7-9.3); MPV 11.3 FL (7.4-10.4); NEUT% 92.6 % (42.2-75.2); PLT 266 X1000 (130-400); RBC 2.65 XMIL (4.2-5.4)
[2016-10-18] MEDS: CARDIZEM 100 MG/NS 100 MG/100 ML IVPB IV SCH ×3 (05:00→20:24)
[2016-10-18 05:20] LABS: BANDS 10 % (0-1); LYMPHS 2 % (21-51); MONO 2 % (1-9)
[2016-10-18 05:24] LABS: CALCIUM 8.1 mg/dL (8.8-10.2); POTASSIUM 5.3 mmol/L (3.5-5.1)
[2016-10-18] MEDS: SYNTHROID PO SCH (06:00)
[2016-10-18] MEDS ORDERED: LASIX IV ONE ×3 (06:21→18:00)
[2016-10-18] MEDS: HUMULIN R SUBQ SCH ×4 (06:54→20:26)
--- NOTE | 2016-10-18 07:21 | Diag Imaging Result Doc PS360 ---
CHEST-PORTABLE - 10/18/2016 0655 INDICATION: desat. check ETT placement TECHNIQUE: COMPARISON: 0500 FINDINGS: Support lines and tubes are stable. There is slight worsening bilateral central and upper lobe infiltrates. This is mixed, alveolar and interstitial. IMPRESSION: Worsening infiltrates. No complication from support line or tube placement. Electronically signed by Bry Taylor 10/18/2016 7:19 AM
[2016-10-18] MEDS: MUCOMYST 20% INH SCH ×5 (07:27→20:59)
--- NOTE | 2016-10-18 07:42 | Diag Imaging Result Doc PS360 ---
CHEST-1 VIEW - 10/18/2016 INDICATION: SOB TECHNIQUE: COMPARISON: 10/17/2016 FINDINGS: Support lines and tubes are stable. There is worsening alveolar infiltrate in the left upper lobe. Stable hazy interstitial infiltrates diffusely and bilaterally. Heart size remains enlarged. IMPRESSION: Worsening left upper lobe infiltrate concerning for pneumonia or aspiration. Electronically signed by Bry Taylor 10/18/2016 7:40 AM
[2016-10-18] MEDS: SOLU-MEDROL IV SCH ×3 (07:46→23:21)
[2016-10-18] MEDS: CENTRUM SILVER PO SCH (08:40)
[2016-10-18] MEDS: LOVENOX SUBQ SCH (08:40)
[2016-10-18] MEDS: MIRALAX PO SCH (08:41)
[2016-10-18] MEDS: FLONASE NAS SCH ×2 (08:42→20:27)
[2016-10-18] MEDS: LANTUS SUBQ SCH ×2 (08:46→21:37)
[2016-10-18] MEDS: SODIUM CHLORIDE 0.9% INJ SCH (09:34)
[2016-10-18] MEDS: PROTONIX IV SCH (09:34)
[2016-10-18] MEDS: ALBUMIN 25% IV SCH (11:32)
[2016-10-18 13:57] LABS: URINE SOURCE CATH
[2016-10-18 14:07] LABS: BILIRUBIN URINE NEGATIVE (NEGATIVE); BLOOD URINE MODERATE (NEGATIVE); COLOR YELLOW; GLUCOSE URINE TRACE mg/dL (NEGATIVE); LEUKOCYTES URINE SMALL (NEGATIVE); NITRITE URINE NEGATIVE (NEGATIVE); PH URINE 5.5; PROTEIN URINE TRACE mg/dL (NEGATIVE); SP GRAVITY URINE 1.014; TURBIDITY URINE CLEAR (CLEAR); UROBILINOGEN URINE NORMAL (NORMAL)
[2016-10-18 14:12] LABS: URINE MICRO REVIEW NEEDED? YES
[2016-10-18 14:18] LABS: UR EPITHELIAL CELLS <10 /HPF (<10); URINE BACTERIA NEGATIVE /HPF; URINE RBC <10 /HPF (<10)
[2016-10-18 14:24] LABS: URINE CASTS GRANULAR PRESENT; URINE CRYSTALS NONE SEEN
--- NOTE | 2016-10-18 14:31 | CONSULTATION ---
DATE OF CONSULTATION: 10/18/2016 REASON FOR CONSULTATION: Assistance with management related to volume overload. HISTORY OF PRESENT ILLNESS: Ms. Alvarenga is a 65-year-old white female who has a history of small- cell lung cancer for which she has been treated with radiation and chemotherapy but is in remission according to the . There has been no mention of recurrence of disease of which he is aware. She also has a history of cerebrovascular events, COPD, hypertension, sleep apnea, obesity, etc. She was having a problem med home with progressively worsening swelling and increasing shortness of breath. She went to Dr. Alcaraz's office for a routine office visit where her oxygen saturation was at 80 or below and so she was directed to the emergency room. Her evaluation in the emergency room found her room air saturation at 89% and she was significantly edematous, so much so that she could not put on her shoes. Because of these symptoms, she was admitted to the hospital. Her initial chest x-ray performed back on the found bilateral infiltrates suggesting edema but also possibly pneumonia. She had normal renal function on presentation. She has been treated with antibiotics, supplemental oxygen, and occasional diuretics since admission. Despite this, her status has been progressively worse, such that she has now been on the ventilator for about 1 week. In that time her urine output has remained good but she has been in positive fluid balance on most days. Urine volume has been 1.5 to 4.5 L on average. Her creatinine has changed very little during that time. Specifically, on presentation creatinine 1.0, today 1.1. Highest measured creatinine 1.4 on the . Her pulmonary status has been declining. Her chest x-ray has been worsening. Her oxygen requirements are high and she is currently on 100% FiO2. They attempted to wean her oxygen today but unsuccessfully. CVP was measured at 8 cm of water at noon today. She had significant hypoxemia this morning and was treated with additional Lasix and now her O2 saturations are around 95% but on 100% FiO2. PAST MEDICAL HISTORY: As listed above. ALLERGIES: Penicillin, oxycodone, propoxyphene. CURRENT MEDICATIONS: P.r.n. acetaminophen, Mucomyst, albumin, albuterol ipratropium, atorvastatin, diltiazem, enoxaparin, fluticasone inhaled, insulin, labetalol, levofloxacin, levothyroxine, lorazepam, multivitamin, methylprednisolone, metoclopramide, morphine, phenylephrine, pantoprazole. SOCIAL HISTORY: She is and lives with her . Former smoker. FAMILY HISTORY: Positive for coronary disease. REVIEW OF SYSTEMS: Otherwise not obtainable. PHYSICAL EXAMINATION: Vital Signs: Blood pressure 137/50, heart rate 95, respiration 18, afebrile. Intake 4.4 L. Output 2 L. General: No acute distress. Skin: Warm and dry. HEENT: Conjunctivae are pink. Pupils are equal. Oropharynx is dry. Neck: Supple. Neck veins are not visible. No hepatojugular reflux. Heart: Regular and tachycardic with a gallop. Lungs: Have equal breath sounds. Diffuse crackles are present. Abdomen: Obese and soft. Bowel sounds are diminished but present. No organomegaly or masses. Extremities: Have 3+ edema. No clubbing or cyanosis. IMPRESSION: Pulmonary infiltrates with hypoxemia. It is very difficult from her chest x-ray to discern whether there is pulmonary edema or pneumonia. Certainly, she is at risk to have capillary leak and pulmonary edema even if her central pressures are not high. Her CVP was only 8. She has low albumin which also may favor 3rd spacing. She has responded nicely to diuretics. Her IV fluids have been decreased appropriately. I will re-dose with furosemide later today and re-evaluate her response in the morning. Given her excellent urine output, she really would not derive any added benefit from dialysis so I will not offer that at this time. Her BUN to creatinine ratio is high but she is receiving IV steroids. I will screen for GI bleeding. Unfortunate situation but I agree with your care thus far. Further recommendations to follow. cc: Maurilio Bull MD
--- NOTE | 2016-10-18 14:56 | Diag Imaging Result Doc PS360 ---
EXAM: CT THORAX/ABD/PELVIS W/O CONT - 10/18/2016 HISTORY: ards/pulmonary edema TECHNIQUE: Without contrast per request the referring provider. Dose reduction protocol. COMPARISON: CT thorax of 09/27/2016. FINDINGS: CT thorax: There is an endotracheal tube in satisfactory position. There are fairly extensive bilateral infiltrates which have increased substantially. On the right, infiltrate is most dense at the lower lobe. There is some sparing of the lower left lung from infiltrate. There is a small left pleural effusion which is increased mildly. There is no pneumothorax identified. CT abdomen and pelvis: There is a nasogastric tube is tip of the distal stomach. There are artifacts from patient's arms which limit detail of the upper abdomen. There are no substantial abnormalities of the liver, spleen, adrenal glands, or pancreas (other than some pancreatic atrophic changes) identified. The gallbladder is moderately distended, may contain some sludge or dense bile. There are no calcified gallstones or pericholecystic inflammation identified. There is no evidence of renal stone or hydronephrosis. There are a couple of slightly enlarged retroperitoneal lymph nodes. There is a small fat-containing periumbilical hernia. There is no bowel containing hernia identified. There is no evidence of bowel obstruction. There is no substantial bowel wall thickening identified. There is no free air, free fluid, or abscess identified. There is no abnormal pelvic mass or fluid collection identified. IMPRESSION: CT thorax: Fairly extensive bilateral infiltrates which have increased substantially compared to 09/27/2016. Considerations include adult respiratory distress syndrome, pneumonia, pulmonary edema, or some combination of these. There is a small left pleural effusion which has increased mildly. CT abdomen and pelvis: Moderately distended gallbladder. No densely calcified gallstones or pericholecystic inflammation identified. Small fat-containing paraumbilical hernia. No bowel obstruction. No abscess. No free air. A couple of slightly enlarged retroperitoneal lymph nodes. Electronically signed by [place] Bunn 10/18/2016 2:54 PM
--- NOTE | 2016-10-18 16:49 | PROGRESS NOTE ---
DATE: 10/18/2016 PRESENT ILLNESS: The patient has pulmonary venous congestion. There could be the possibility that infection, aspiration, and/or ARDS are present as well. MEDICATIONS: The patient is on Levaquin, this is day 14 of treatment of its use. PHYSICAL EXAMINATION: Vital Signs: Temperature is 97.9 degrees, pulse 94, respirations 16, blood pressure 147/59. General: This is an ill-appearing elderly female. She is intubated and sedated. Lungs: Clear to auscultation. Cardiovascular: Regular heart rate. Abdomen: Soft and nontender. Neurologic: As mentioned above, the patient is intubated and sedated. She did not respond to verbal stimuli. There was no tremor. ENT: Patient has an orotracheal tube in place. Extremities: The patient has bilateral leg edema. LAB AND X-RAY: The patient's CBC shows a white count of 27,700, hemoglobin 7.7 and platelet count 266,000. CT of the chest shows bilateral infiltrates. CT of the abdomen and pelvis shows a distended gallbladder. It does not have any fluid around it though. Blood gases show a pH of 7.39, a PO2 of 66 and a pCO2 of 59. Creatinine is 1.1. GFR is 50. ASSESSMENT AND PLAN: I think the patient has a pulmonary process going on. Different possible etiologies would include infection, pulmonary venous congestion and acute respiratory distress syndrome-like picture. COMORBIDITIES: Include lung cancer, stroke, gastroesophageal reflux disease, COPD and a history of cigarette smoking. cc: Robert Hernandez MD MTDD
[2016-10-18] MEDS: LIPITOR PO SCH (20:33)
[2016-10-18] MEDS ORDERED: NS 500 ML IV SCH (20:37)
--- NOTE | 2016-10-18 20:47 | PROGRESS NOTE ---
DATE: 10/18/2016 SUBJECTIVE: The patient is currently intubated on the ventilator. She is currently on a Cardizem drip. The events from overnight were reviewed. OBJECTIVE: Vital Signs: Temperature 97.9 degrees, blood pressure 147/59, heart rate 94, respirations 16, O2 saturations 95% on mechanical ventilator at 100%. Intake 4.4 L, output 1.9 L. General: This is a morbidly obese female currently sedated on the ventilator. HEENT: Normocephalic. No scleral icterus. PERRLA. ET tube is in place. The trachea is midline. Heart: S1, S2 normal. Lungs: Equal air entry bilaterally. Positive for crackles, no rales, no rhonchi. Abdomen: Positive bowel sounds. Soft, obese, nontender, nondistended. Extremities: Patient has anasarca involving the upper extremities, +2 to+edema in the lower extremities. Neurologic: The patient is sedated, she does respond to painful stimuli. LABORATORY: White blood cell count 27, hemoglobin 7.7, hematocrit 26, platelets 266,000. ABG: PH of 7.39, pCO2 95, PO2 66, bicarb 31, sodium 138, potassium 5.3, chloride 97, CO2 33, BUN 72, creatinine 1.1. Glucose 331. ProBNP 1878. IMAGING: CT of the chest, abdomen, and pelvis shows extensive bilateral infiltrates that have increased. Moderately distended gallbladder. ASSESSMENT AND PLAN: 1. Acute hypercapnic and hypoxemic respiratory failure. Multifactorial. The CT of the chest does show acute respiratory distress syndrome plus pneumonia and possibly some edema. The patient is on full ventilatory support and is receiving diuretic therapy, IV antibiotics, IV steroids, and bronchodilator therapy. Management as per the wheel alignment technician. 2. Pneumonia. Continue on the current IV antibiotic therapy as directed by Dr. Hernandez. 3. Congestive heart failure exacerbation with pulmonary edema. The patient's central venous pressure this morning was 16, at which time the patient was given 120 mg of Lasix. We will continue to monitor the patient's fluid intake. We will consult the patient portal concierge for assistance with diuretic therapy. 4. Acute kidney injury. This appears to be improving. The patient's urine output has been appropriate. We will continue to monitor this for improvement. 5. Atrial fibrillation. The patient remains on a Cardizem drip. 6. Leukocytosis. Slightly improved. Continue on the current IV antibiotic regimen. 7. Anemia. We will check iron studies. We will continue to monitor the patient 's hemoglobin and hematocrit closely. 8. Hypothyroidism. Continue on Synthroid. 9. Nutrition. The patient is currently tolerating her tube feeds. 10. Diabetes mellitus type 2, uncontrolled. We will add Lantus 25 units subcutaneous twice a day. Continue with sliding scale insulin. 11. Anasarca. The patient's albumin is 2.4. We will add albumin infusions to help with the 3rd spacing that is occurring at this time. 12. Deep vein thrombosis prophylaxis. Continue on Lovenox. 13. Gastrointestinal prophylaxis. Continue on Protonix. 14. Disposition. I had a discussion with the patient's and informed him about the patient's critical condition. The patient has a high risk for mortality. cc: Arlene Bhatti MD MTDD
[2016-10-19] MEDS: DUONEB (A & A) INH SCH ×4 (03:06→15:10)
[2016-10-19] MEDS: CARDIZEM 100 MG/NS 100 MG/100 ML IVPB IV SCH ×2 (03:20→09:06)
[2016-10-19] MEDS: REGLAN IV SCH ×3 (03:24→16:37)
[2016-10-19] MEDS: MORPHINE IV PRN ×3 (03:26→06:38)
[2016-10-19 04:34] LABS: ALLEN TEST YES; BLOOD TYPE ARTERIAL; DRAW SITE R RADIAL; METHB 0.8 % (0.0-1.5); O2(CT) 11.4 mL/dL (15.0-23.0); PO2(98.6) 86 mmHg (60-100); SAMPLE BLOOD; SAO2 99.8 % (95.0-100.0); SRATE 14 BPM; THB 8.3 g/dL (11.5-17.4); TVOL 550 mL; pH(98.6) 7.44 (7.35-7.45)
[2016-10-19 04:37] LABS: MODALITY VENTILATOR; PCO2(98.6) 62 mmHg (35-45)
[2016-10-19 05:15] LABS: BASO% 0.1 % (0.0-0.8); EOS# 0.01 X1000 (0.0-0.7); HEMOGLOBIN 7.2 g/dL (12.0-16.0); IMM GRAN# 0.32 X1000 (0.0-0.04); IMM GRAN% 1.3 % (0.0-0.5); LYMPH# 0.45 X1000 (1.2-3.4); LYMPH% 1.9 % (20.5-51.1); MANUAL DIFF NEEDED? NO; MCH 29.4 PG (27-31); MONO# 0.67 X1000 (0.11-0.59); MONO% 2.8 % (1.7-9.3); MPV 11.8 FL (7.4-10.4); NEUT% 93.9 % (42.2-75.2); PLT 233 X1000 (130-400); RBC 2.45 XMIL (4.2-5.4)
[2016-10-19 05:26] LABS: RETIC% 3.23 % (0.8-2.1); RETIC-HE 33.5 PG (28.2-36.6)
[2016-10-19 05:30] LABS: IRON SATURATION 15 %; TIBC 165 ug/dL; TOTAL IRON 24 ug/dL (49-151); UNBOUND IRON 141 ug/dL (112-346)
[2016-10-19 05:38] LABS: ALBUMIN 3.2 g/dL (3.5-5.0); CALCIUM 8.9 mg/dL (8.8-10.2); POTASSIUM 5.2 mmol/L (3.5-5.1)
[2016-10-19 05:47] LABS: FERRITIN 1783 ng/mL (13-150)
[2016-10-19] MEDS ORDERED: NIMBEX 80 MG in NS 160 ML IV SCH (06:45)
[2016-10-19] MEDS: HUMULIN R SUBQ SCH ×3 (07:14→16:41)
[2016-10-19] MEDS: SYNTHROID PO SCH (07:15)
--- NOTE | 2016-10-19 07:32 | Diag Imaging Result Doc PS360 ---
CHEST-1 VIEW - 10/19/2016 INDICATION: SOB TECHNIQUE: COMPARISON: 10/18/2016 FINDINGS: Support lines and tubes are stable. There is slight improvement in the density of the bilateral mixed infiltrates. These are predominantly interstitial. Heart size remains top normal. IMPRESSION: Slight improvement in the diffuse bilateral infiltrates. Electronically signed by Bry Taylor 10/19/2016 7:30 AM
[2016-10-19] MEDS ORDERED: LASIX IV ONE (07:34)
--- NOTE | 2016-10-19 08:05 | PROGRESS NOTE ---
DATE: 10/19/2016 SUBJECTIVE: She is sedated and unresponsive. OBJECTIVE: Vital Signs: Blood pressure 135/54, heart rate 97, respiration 18, afebrile. Central venous pressure 16. Intake 1.3 L. Output 4.5 L. General: Sedated, unresponsive. Skin: Warm and dry. Conjunctivae are pink. Neck: Neck veins are not appreciated. Trachea is midline. Heart: Irregular and tachycardic. Lungs: Have somewhat distant breath sounds. No crackles or wheezes are audible. Abdomen: Soft, nontender. Diminished bowel sounds. Extremities: Have 1+ edema. No clubbing or cyanosis. LABORATORY DATA: Sodium 153, potassium 5.2, chloride 107, bicarbonate 36, BUN 73, creatinine 1.2. IMPRESSION: 1. Volume overload. Her central venous pressure has risen despite being in negative fluid balance by 3 L. Little change in her BUN and creatinine. BUN to creatinine ratio remains quite high. I will dose with 100 mg of IV Lasix again today and observe her response. Her serum bicarbonate has risen to 36 which likely is a consequence of diuretic use. 2. Electrolytes: Evolving hypernatremia. She has been dealing with this for several days. I will increase her flushes of her nasogastric tube. cc: Maurilio Bull MD
[2016-10-19] MEDS: ALBUMIN 25% IV SCH (09:01)
[2016-10-19] MEDS: SOLU-MEDROL IV SCH ×2 (09:07→16:37)
[2016-10-19] MEDS: LOVENOX SUBQ SCH (09:07)
[2016-10-19] MEDS: FLONASE NAS SCH (09:08)
[2016-10-19] MEDS: LANTUS SUBQ SCH (09:10)
[2016-10-19] MEDS: PROTONIX IV SCH (09:11)
--- NOTE | 2016-10-19 09:32 | Diag Imaging Result Doc PS360 ---
CHEST-PORTABLE - 10/19/2016 0920 INDICATION: decrease sats TECHNIQUE: COMPARISON: 0500 FINDINGS: Support lines and tubes are stable. There is worsening of the bilateral significant infiltrates, with increased density at the right lung base. Heart size remains borderline. Stable background interstitial infiltrates diffusely and bilaterally. IMPRESSION: Worsening aeration of the right lung base. Electronically signed by Bry Taylor 10/19/2016 9:30 AM
[2016-10-19 09:34] LABS: ALLEN TEST YES; BE 11.6 mmoll (-3.0-3.0); BLOOD TYPE ARTERIAL; DRAW SITE R RADIAL; METHB 1.3 % (0.0-1.5); O2(CT) 8.4 mL/dL (15.0-23.0); SAMPLE BLOOD; SAO2 68.3 % (95.0-100.0); SRATE 14 BPM; THB 9.1 g/dL (11.5-17.4); TVOL 550 mL
[2016-10-19 09:36] LABS: PCO2(98.6) 114 mmHg (35-45); pH(98.6) 7.18 (7.35-7.45)
[2016-10-19 09:37] LABS: MODALITY VENTILATOR; PO2(98.6) 41 mmHg (60-100)
[2016-10-19] MEDS: MUCOMYST 20% INH SCH ×2 (11:40→15:10)
--- NOTE | 2016-10-19 16:11 | PROGRESS NOTE ---
DATE: 10/19/2016 SUBJECTIVE: The patient was noted to be in respiratory distress today with her saturations dipping into the 70s. The patient was started on Nimbex. OBJECTIVE: Vital Signs: Temperature 97.6, blood pressure 134/53, heart rate 91, respirations 14, O2 saturations 83% on the mechanical ventilator. Input 1.2 L. Output 4.4 L. General: This is a morbidly obese female, currently sedated on the ventilator. Head: Normocephalic, atraumatic. Heart: S1, S2, normal. Irregularly irregular rhythm. Tachycardic. Lungs: Coarse breath sounds bilaterally. No wheezing. No rales. Abdomen: Positive bowel sounds. Soft, obese, nontender, nondistended. Extremities: 3+ edema in the upper extremities. 2+ edema in the lower extremities. Neurologic: The patient is currently sedated. LABS: White blood cell count 23, hemoglobin 7.2, hematocrit 24, platelets 233. ABGs: pH 7.1, pCO2 of 114, pO2 of 41, bicarb 33. Sodium 153, potassium 5.2, chloride 107. CO2 of 36, BUN 73, creatinine 1.2, glucose 190. ASSESSMENT AND PLAN: 1. Acute hypercapnic and hypoxemic respiratory failure, multifactorial. A large component is likely secondary to adult respiratory distress syndrome. The patient is on full ventilatory support. Despite this, her saturations are still low. We will continue with diuretic therapy, IV antibiotics, IV steroids and bronchodilator therapy. 2. Pneumonia. Continue on IV antibiotic therapy. 3. Congestive heart failure with pulmonary edema. Continue with Lasix as directed by the city collector. 4. Acute kidney injury. Stable. 5. Atrial fibrillation with rapid ventricular response. Continue on the Cardizem drip. 6. Leukocytosis. Continue on IV antibiotic therapy. 7. Anemia. The patient will receive 1 unit of packed red blood cells today. 8. Hypothyroidism. Continue on Synthroid. 9. Nutrition. Due to the patient's respiratory distress, the tube feeds are on hold. 10. Diabetes mellitus type 2. Continue on Lantus b.i.d. and sliding scale insulin. 11. Deep vein thrombosis prophylaxis. Continue on Lovenox. 12. Gastrointestinal prophylaxis. Continue on Protonix. DISPOSITION: Dr. Alcaraz had a discussion with the patient's and the patient is now a DNR level 1. The patient remains critically ill with a high risk of mortality. cc: Arlene Bhatti MD
[2016-10-19] MEDS ORDERED: ATIVAN IV PRN (17:12)
[2016-10-19 17:13] VITALS: BP 145/78
[2016-10-19] MEDS ORDERED: TRANSDERM-SCOP TD SCH (17:15)
[2016-10-19] MEDS ORDERED: ATROPINE 1% OPHTH SOLN PRN (17:15)
[2016-10-19] MEDS ORDERED: MORPHINE IV PRN (18:12)
--- NOTE | 2016-10-24 20:50 | DISCHARGE SUMMARY ---
ADMISSION DATE: 09/27/2016 DISCHARGE DATE: 10/19/2016 FINAL DISCHARGE DIAGNOSES: 1. Acute on chronic hypoxemic respiratory failure. 2. Acute respiratory distress syndrome. 3. Pulmonary edema. 4. Acute congestive heart failure exacerbation. 5. Pneumonia. 6. Atrial fibrillation with rapid ventricular response. 7. Acute kidney injury. 8. Morbid obesity. 9. Small cell lung cancer status post chemotherapy and radiation. CONSULTATIONS REQUESTED DURING THIS HOSPITAL STAY: 1. Pulmonary consultation with Dr. Alcaraz. 2. Cardiology consultation with Dr. Thurman. 3. Nephrology consultation with Dr. Bull. HOSPITAL COURSE: Ms. Alvarenga is a 65-year-old female with a history of multiple medical problems who initially presented to the ER with volume overload and atrial fibrillation with rapid ventricular response. The patient was admitted to the hospitalist service and started on diuretic therapy plus a Cardizem drip. Due to the patient's condition, she was transferred to the ICU. Over the course of the hospitalization, the patient's respiratory status started to worsen. A chest x-ray was done that revealed pneumonia. As a result, broad-spectrum antibiotics were initiated and ID as well as Pulmonary Medicine were consulted. Despite antibiotic therapy and bronchodilator therapy, the patient's respiratory status continued to deteriorate, and the patient was ultimately intubated and placed on the ventilator. The patient also developed acute kidney injury as a result of diuretic usage. The patient's respiratory status also continued to worsen despite being on the ventilator. It was noted on several chest x-rays that the patient appeared to have developed ARDS. This was discussed with the patient's in great detail who opted to make the patient a DNR level 1. After discussion with the rest of the family, the patient's decided to withdraw care. On 10/19/2016 at 18:38, the patient was pronounced . The patient's family was present at the bedside at the time of . cc: Arlene Bhatti MD [facility]
== END 2016-10-19 21:26 | disposition expired ==
LOC: ED 14:59 → 4N 18:53 → SUATTDRO 18:53 → 3S 09-29 16:56 → ICU 09-30 10:43
PROVIDERS: ATTEND Internal Medicine